=== PATIENT | female | born 1930 | race Caucasian/White ===

== ENCOUNTER 2017-05-13 16:03 | Inpatient (IN) | payer BC, OTHER ==
[2017-05-13 16:20] VITALS: BMI 26.1
--- NOTE | 2017-05-13 16:22 | PDOC ---
Rapid Medical Evaluation Chief Complaint: Hematuria Time Seen by Provider: 05/13/17 16:20 Medical Evaluation: Allergies Allergy/AdvReac Type Severity Reaction Status Date / Time No Known Allergies Allergy Verified 05/13/17 16:14 Vital Signs Temp Pulse Resp BP Pulse Ox 98.6 F 134 H 18 156/89 100 05/13/17 16:16 05/13/17 16:16 05/13/17 16:16 05/13/17 16:16 05/13/17 16:16 05/13/17 16:21 Pt presents to the ED with complaints of: hematuria since this am, no other complaints On brief exam: afib fluctuating to 140s, on eliquis for afib Pt ordered for: ekg, monitoring specialist, iv Pt to proceed to the ED Discharge Disposition - Diagnosis Hematuria - Discharge Dispostion Condition at time of disposition: Stable - Referrals - Patient Instructions - Post Discharge Activity
[2017-05-13 16:58] LABS: BASO % 0.3 % (0-2.0); EOS % 1.1 % (0-4.5); HEMATOCRIT 38.8 % (32.4-45.2); HEMOGLOBIN 12.7 GM/dL (10.7-15.3); LYMPH % 23.6 % (8-40); MCH 29.5 pg (25.7-33.7); MCHC 32.8 g/dl (32.0-36.0); MEAN CELL VOLUME 89.9 fl (80-96); MEAN PLT VOLUME 7.6 fl (7.5-11.1); MONO % 9.9 % (3.8-10.2); NEUT % 65.1 % (42.8-82.8); PLATELET COUNT 293 K/MM3 (134-434); RBC 4.32 M/mm3 (3.60-5.2); RDW 14.9 % (11.6-15.6); WHITE BLOOD COUNT 9.1 K/mm3 (4.0-10.0)
--- NOTE | 2017-05-13 17:04 | PDOC ---
History of Present Illness - General History Source: Patient, Family Exam Limitations: No Limitations - History of Present Illness Initial Comments: 05/13/17 22:47 The patient is an 86 year old female with past medical history of hypertension, diabetes, and Afib on eliqius who presents to the ED with complaints of hematuria and dysuria that began today. She states that the blood has been constant all day, not only when she urinates, however the pain is only present upon urination. The patient states that the blood is bright red, but her granddaughter noticed that the patients panty liner was streaked with some dark red blood as well. She also reports a history of urine infections in the past but denies any recent infections. She denies any urgency, hesitancy, or other urinary symptoms. She denies any fever, chills, nausea, vomiting, diarrhea, cough, SOB, or CP. PCP: Dr. Jericho Mcguire <Jonna Givens - Last Filed: 05/13/17 23:44> <James Diop - Last Filed: 05/14/17 02:06> - General Chief Complaint: Hematuria Stated Complaint: tachycardia BLODD IN URINE Time Seen by Provider: 05/13/17 16:20 Past History <Jonna Givens - Last Filed: 05/13/17 23:44> - Past Medical History Cardiac Disorders: Yes (a.fib) COPD: No Diabetes: Yes HTN: Yes - Immunization History Immunization Up to Date: No - Suicide/Smoking/Psychosocial Hx Smoking History: Never smoked Have you smoked in the past 12 months: No Information on smoking cessation initiated: No Hx Alcohol Use: No Drug/Substance Use Hx: No Substance Use Type: None <James Diop - Last Filed: 05/14/17 02:06> - Past Medical History Allergies/Adverse Reactions: Allergies Allergy/AdvReac Type Severity Reaction Status Date / Time No Known Allergies Allergy Verified 05/13/17 16:14 Home Medications: Ambulatory Orders Apixaban [Eliquis -] 5 mg PO BID 05/13/17 Digoxin 125 mcg PO DAILY 05/13/17 Diltiazem HCl [Cartia Xt] 180 mg PO BID 05/13/17 Docusate Sodium [Colace -] 100 mg PO BID 05/13/17 Metformin HCl [Glucophage -] 850 mg PO BID 05/13/17 Metoprolol Succinate [Toprol Xl -] 100 mg PO BID 05/13/17 Review of Systems - Review of Systems Able to Perform ROS?: Yes Comments:: 05/13/17 22:56 GENERAL/CONSTITUTIONAL: No fever or chills. No weakness. HEAD, EYES, EARS, NOSE AND THROAT: No change in vision. No ear pain or discharge. No sore throat. GASTROINTESTINAL: No nausea, vomiting, diarrhea or constipation. GENITOURINARY: Present: dysuria, hematuria CARDIOVASCULAR: No chest pain or shortness of breath. RESPIRATORY: No cough, wheezing, or hemoptysis. MUSCULOSKELETAL: No joint or muscle swelling or pain. No neck or back pain. SKIN: No rash NEUROLOGIC: No headache, vertigo, loss of consciousness, or change in strength/ sensation. ENDOCRINE: No increased thirst. No abnormal weight change. HEMATOLOGIC/LYMPHATIC: No anemia, easy bleeding, or history of blood clots. ALLERGIC/IMMUNOLOGIC: No hives or skin allergy. All Other Systems: Reviewed and Negative <Jonna Givens - Last Filed: 05/13/17 23:44> *Physical Exam - Vital Signs Last Vital Signs Temp Pulse Resp BP Pulse Ox 98.6 F 87 20 157/91 95 05/13/17 16:16 05/13/17 21:04 05/13/17 21:04 05/13/17 21:04 05/13/17 21:04 - Physical Exam Comments: 05/13/17 22:58 GENERAL: Awake, alert, and fully oriented, in no acute distress HEAD: No signs of trauma EYES: PERRLA, EOMI, sclera anicteric, conjunctiva clear ENT: Auricles normal inspection, hearing grossly normal, nares patent, oropharynx clear without exudates. Moist mucosa NECK: Normal ROM, supple, no lymphadenopathy, JVD, or masses LUNGS: Breath sounds equal, clear to auscultation bilaterally. No wheezes, and no crackles HEART: irregularly irregular HR 134, normal S1 and S2, no murmurs, rubs or gallops ABDOMEN: Soft, nontender, normoactive bowel sounds. No guarding, no rebound. No masses : +blood in the vaginal vault, belcher in place with dark red blood in bag EXTREMITIES: Normal range of motion, no edema. No clubbing or cyanosis. No cords, erythema, or tenderness NEUROLOGICAL: Normal speech, cranial nerves intact, negative pronator drift, 5/ 5 strength in all 4 extremities, normal sensation to light touch in all 4 extremities, normal cerebellar exam, normal reflexes and tone, gait deferred SKIN: Warm, Dry, normal turgor, no rashes or lesions noted. <Jonna Givens - Last Filed: 05/13/17 23:44> - Vital Signs Last Vital Signs Temp Pulse Resp BP Pulse Ox 98.6 F 134 H 18 156/89 100 05/13/17 16:16 05/13/17 16:16 05/13/17 16:16 05/13/17 16:16 05/13/17 16:16 <James Diop - Last Filed: 05/14/17 02:06> Heart Score/ECG Review #1 05/13/17 17:01 Atrial fibrillation with rapid ventricular response, rate 149. Normal axis. ST depressions in V5 and V6, likely rate related. <James Diop - Last Filed: 05/14/17 02:06> ED Treatment Course - LABORATORY CBC & Chemistry Diagram: 05/13/17 16:45 05/13/17 17:20 - ADDITIONAL ORDERS Additional order review: Laboratory Results 05/13/17 05/13/17 05/13/17 17:45 17:20 17:20 PT with INR INR Sodium 141 Potassium 3.6 Chloride 107 Carbon Dioxide 22 D Anion Gap 12 BUN 34 H D Creatinine 0.9 D Creat Clearance w eGFR 59.37 Random Glucose 152 H Calcium 9.3 Total Bilirubin 0.5 D AST 7 L ALT 10 L Alkaline Phosphatase 107 D Creatine Kinase Troponin I < 0.02 Total Protein 6.9 Albumin 3.3 L Urine Color Red Urine Appearance Bloody Urine pH 7.0 Ur Specific [place] 1.025 Urine Protein 3+ H D Urine Glucose (UA) Negative Urine Ketones Negative Urine Blood 3+ H Urine Nitrite Negative Urine Bilirubin Negative Urine Urobilinogen 0.2 Ur Leukocyte Esterase Negative Urine RBC (Auto) >100 Ur Epithelial Cells Moderate Digoxin 0.0631 L 05/13/17 05/13/17 16:45 16:45 PT with INR 14.20 H INR 1.26 H Sodium Cancelled Potassium Cancelled Chloride Cancelled Carbon Dioxide Cancelled Anion Gap Cancelled BUN Cancelled Creatinine Cancelled Creat Clearance w eGFR Cancelled Random Glucose Cancelled Calcium Cancelled Total Bilirubin Cancelled AST Cancelled ALT Cancelled Alkaline Phosphatase Cancelled Creatine Kinase Cancelled Troponin I Cancelled Total Protein Cancelled Albumin Cancelled Urine Color Urine Appearance Urine pH Ur Specific [place] Urine Protein Urine Glucose (UA) Urine Ketones Urine Blood Urine Nitrite Urine Bilirubin Urine Urobilinogen Ur Leukocyte Esterase Urine RBC (Auto) Ur Epithelial Cells Digoxin 05/13/17 16:45 RBC 4.32 MCV 89.9 MCHC 32.8 RDW 14.9 MPV 7.6 Neutrophils % 65.1 Lymphocytes % 23.6 Monocytes % 9.9 Eosinophils % 1.1 Basophils % 0.3 - RADIOLOGY Radiograph Interpretation: 05/13/17 22:11 Chest X-ray as reviewed by Dr. Massey reports no significant findings. - Medications Given in the ED: ED Medications Discontinued Medications Generic Name Dose Route Start Last Admin Trade Name Freq PRN Reason Stop Dose Admin Sodium Chloride 500 ml 05/13/17 17:07 05/13/17 17:37 Normal Saline - IV 05/13/17 17:08 500 ml ONCE ONE Administration <Jonna Givens - Last Filed: 05/13/17 23:44> - LABORATORY CBC & Chemistry Diagram: 05/13/17 22:58 05/13/17 17:20 <James Diop - Last Filed: 05/14/17 02:06> Medical Decision Making - Medical Decision Making 05/13/17 22:06 Microblog Sent to [facility] at 19:16. Call returned promptly and case discussed. 05/13/17 23:44 Transvaginal ultrasound as reviewed by Dr. Rod reports 6 x 5 cm heterogenous masslike density that appears to be within the urinary bladder <Jonna Givens - Last Filed: 05/13/17 23:44> - Medical Decision Making 05/13/17 17:02 86-year-old female with a history of A. fib on Eliquis, heart failure, diabetes presents with hematuria and atrial fibrillation with RVR. Hematuria possibly secondary to eliquis +/- infection. Patient is due for her evening doses of diltiazem and metoprolol which I have advised her to take. Will check labs, urinalysis, and chest x-ray and reassess. 05/13/17 20:02 Labs unremarkable. Heart rate came down to the 80s with the patient's home doses of dilt/metoprolol. Belcher with 500 mL of dark bloody urine. On repeat evaluation there appeared to be blood from the vagina as well and thus I discussed the patient that we should obtain a transvaginal ultrasound for further evaluation to which she verbally consented. The patient's primary physician Dr. Bentley is at the bedside, and requested that we obtain a REGULATORY ASSOCIATE consult which I ordered. I discussed the case with nurse practitioner Estevan who accepts the patient for admission under Dr. Mooney's service. Case discussed in detail with admitting physician including history, physical exam and ancillary studies. Admitting physician has assumed care for the patient, will follow all pending diagnostics and will complete the evaluation and treatment. <James Diop - Last Filed: 05/14/17 02:06> *DC/Admit/Observation/Transfer - Attestations Scribe Attestion: 05/13/17 22:06 Documentation prepared by Jonna Givens, acting as medical physics researcher for James Diop MD. <Jonna Givens - Last Filed: 05/13/17 23:44> - Discharge Dispostion Admit: Yes - Attestations Physician Attestion: 05/13/17 20:06 I, Dr. James Diop MD, attest that this document has been prepared under my direction and personally reviewed by me in its entirety. I further attest, that it accurately reflects all work, treatment, procedures and medical decision -making performed by me. <James Diop - Last Filed: 05/14/17 02:06> Diagnosis at time of Disposition: Hematuria - Discharge Dispostion Condition at time of disposition: Stable
[2017-05-13] MEDS ORDERED: SODIUM CHLORIDE 0.9% 1000 ML INFUS.BAG IV ONE (17:07)
[2017-05-13 17:11] LABS: INR 1.26 (0.82-1.09); PROTHROMBIN TIME (PATIENT) 14.2 SEC (9.98-11.88)
[2017-05-13 18:07] LABS: ALBUMIN 3.3 g/dl (3.4-5.0); ANION GAP 12 (8-16); BLOOD UREA NITROGEN 34 mg/dL (7-18); CALCIUM 9.3 mg/dL (8.5-10.1); CHLORIDE 107 mmol/L (98-107); CO2 22 mmol/L (21-32); CREATININE 0.9 mg/dL (0.55-1.02); GLUCOSE,RANDOM 152 mg/dL (74-106); POTASSIUM 3.6 mmol/L (3.5-5.1); SGOT/AST 7 U/L (15-37); SGPT/ALT 10 U/L (12-78); SODIUM 141 mmol/L (136-145)
[2017-05-13 18:10] LABS: ALK PHOS 107 U/L (45-117); BILIRUBIN,TOTAL 0.5 mg/dL (0.2-1.0); TOT PROT 6.9 g/dl (6.4-8.2)
[2017-05-13 18:19] LABS: URINE BILIRUBIN NEGATIVE (NEGATIVE); URINE BLOOD 3+ (NEGATIVE); URINE GLUCOSE (UA) NEGATIVE (NEGATIVE); URINE KETONE NEGATIVE (NEGATIVE); URINE LEUK ESTERASE NEGATIVE (NEGATIVE); URINE NITRITE NEGATIVE (NEGATIVE); URINE UROBILINOGEN 0.2 mg/dL (0.2-1.0)
[2017-05-13 18:23] LABS: URINE PROTEIN 3+ (NEGATIVE)
[2017-05-13 18:24] LABS: URINE APPEARANCE BLOODY; URINE COLOR RED
[2017-05-13 18:42] LABS: EPI CELLS MODERATE /HPF (FEW)
--- NOTE | 2017-05-13 20:07 | HP ---
Admitting History and Physical - Primary Care Physician PCP: Prosper Burch - Admission Chief Complaint: Hematuria, Dysuria History of Present Illness: This is a 86 y/o woman with a past medical history of Afib (Eliquis), Diabetes Mellitus, HTN. Who presents to the ED with her family c/o júnior hematuria and dysuria since 11 am today. Patient reports seeing dark red blood while urinating that was initially painless, then during the course of the day she began to have suprapubic pressure and urgency. Patient is on Eliquis for Afib, but denies having any bleeding episodes in the past. Patient denies dizziness, lightheadedness, SOB, CP, or Palpitations. Patient denies fever, chills, cough, N/V/D, constipation, melena, hematochezia. History Source: Patient, Family Member Limitations to Obtaining History: No Limitations - Past Medical History Cardiovascular: Yes: AFIB, CAD, HTN, Hyperlipdemia Endocrine: Yes: Diabetes Mellitus - Past Surgical History Past Surgical History: Yes: None - Smoking History Smoking history: Never smoked Have you smoked in the past 12 months: No - Alcohol/Substance Use Hx Alcohol Use: No History of Substance Use: reports: None - Social History ADL: Independent History of Recent Travel: No Home Medications - Allergies Allergies/Adverse Reactions: Allergies Allergy/AdvReac Type Severity Reaction Status Date / Time No Known Allergies Allergy Verified 05/13/17 16:14 - Home Medications Home Medications: Ambulatory Orders Apixaban [Eliquis -] 5 mg PO BID 05/13/17 Digoxin 125 mcg PO DAILY 05/13/17 Diltiazem HCl [Cartia Xt] 180 mg PO BID 05/13/17 Docusate Sodium [Colace -] 100 mg PO BID 05/13/17 Metformin HCl [Glucophage -] 850 mg PO BID 05/13/17 Metoprolol Succinate [Toprol Xl -] 100 mg PO BID 05/13/17 Family Disease History - Family Disease History Family Disease History: Other: Father (cva), Son (cva,htn) Review of Systems - Review of Systems Constitutional: reports: No Symptoms Eyes: reports: No Symptoms HENT: reports: No Symptoms Neck: reports: No Symptoms Cardiovascular: reports: No Symptoms Respiratory: reports: No Symptoms Gastrointestinal: reports: No Symptoms Genitourinary: reports: Dysuria, Hematuria, Urgency, Vaginal Bleeding, Other ( suprapubic pain) Breasts: reports: No Symptoms Reported Musculoskeletal: reports: No Symptoms Integumentary: reports: No Symptoms Neurological: reports: No Symptoms Endocrine: reports: No Symptoms Hematology/Lymphatic: reports: No Symptoms Psychiatric: reports: Anxiety Physical Examination Vital Signs: Vital Signs Temperature 98.6 F 05/13/17 16:16 Pulse Rate 125 H 05/13/17 17:30 Respiratory Rate 20 05/13/17 17:30 Blood Pressure 109/71 05/13/17 17:30 O2 Sat by Pulse Oximetry (%) 95 05/13/17 17:30 Constitutional: Yes: Anxious, Mild Distress Eyes: Yes: WNL, Conjunctiva Clear, EOM Intact HENT: Yes: WNL, Atraumatic, Normocephalic Neck: Yes: WNL, Supple, Trachea Midline Cardiovascular: Yes: Pulse Irregular (afib RVR), Murmur, S1, S2 Respiratory: Yes: WNL, Regular, CTA Bilaterally Gastrointestinal: Yes: Normal Bowel Sounds ...Rectal Exam: Yes: Guaiac Positive Renal/: Yes: Kim Present (júnior blood in tubing and drainage bag), Hematuria , Vaginal Bleeding Breast(s): Yes: WNL Musculoskeletal: Yes: WNL Extremities: Yes: WNL Edema: No Peripheral Pulses WNL: Yes Integumentary: Yes: WNL Neurological: Yes: WNL, Alert, Oriented, Cran Nerves II-XII Intact ...Motor Strength: WNL Psychiatric: Yes: WNL, Alert, Oriented, Agitated Labs: CBC, BMP 05/13/17 16:45 05/13/17 17:20 Laboratory Results - last 24 hr 05/13/17 05/13/17 05/13/17 16:45 16:45 16:45 WBC 9.1 RBC 4.32 Hgb 12.7 Hct 38.8 MCV 89.9 MCH 29.5 MCHC 32.8 RDW 14.9 Plt Count 293 MPV 7.6 Neutrophils % 65.1 Lymphocytes % 23.6 Monocytes % 9.9 Eosinophils % 1.1 Basophils % 0.3 PT with INR 14.20 H INR 1.26 H Sodium Cancelled Potassium Cancelled Chloride Cancelled Carbon Dioxide Cancelled Anion Gap Cancelled BUN Cancelled Creatinine Cancelled Creat Clearance w eGFR Cancelled POC Glucometer Random Glucose Cancelled Calcium Cancelled Total Bilirubin Cancelled AST Cancelled ALT Cancelled Alkaline Phosphatase Cancelled Creatine Kinase Cancelled Troponin I Cancelled Total Protein Cancelled Albumin Cancelled Urine Color Urine Appearance Urine pH Ur Specific [place] Urine Protein Urine Glucose (UA) Urine Ketones Urine Blood Urine Nitrite Urine Bilirubin Urine Urobilinogen Ur Leukocyte Esterase Urine RBC (Auto) Ur Epithelial Cells Stool Occult Blood Digoxin 05/13/17 05/13/17 05/13/17 17:20 17:20 17:45 WBC RBC Hgb Hct MCV MCH MCHC RDW Plt Count MPV Neutrophils % Lymphocytes % Monocytes % Eosinophils % Basophils % PT with INR INR Sodium 141 Potassium 3.6 Chloride 107 Carbon Dioxide 22 D Anion Gap 12 BUN 34 H D Creatinine 0.9 D Creat Clearance w eGFR 59.37 POC Glucometer Random Glucose 152 H Calcium 9.3 Total Bilirubin 0.5 D AST 7 L ALT 10 L Alkaline Phosphatase 107 D Creatine Kinase Troponin I < 0.02 Total Protein 6.9 Albumin 3.3 L Urine Color Red Urine Appearance Bloody Urine pH 7.0 Ur Specific [place] 1.025 Urine Protein 3+ H D Urine Glucose (UA) Negative Urine Ketones Negative Urine Blood 3+ H Urine Nitrite Negative Urine Bilirubin Negative Urine Urobilinogen 0.2 Ur Leukocyte Esterase Negative Urine RBC (Auto) >100 Ur Epithelial Cells Moderate Stool Occult Blood Digoxin 0.0631 L 05/13/17 05/13/17 05/14/17 21:15 22:58 01:10 WBC 7.6 RBC 3.94 Hgb 11.6 Hct 35.1 MCV 89.2 MCH 29.3 MCHC 32.9 RDW 14.6 Plt Count 285 MPV 7.4 L Neutrophils % 63.9 Lymphocytes % 24.4 Monocytes % 10.3 H Eosinophils % 1.0 Basophils % 0.4 PT with INR INR Sodium Potassium Chloride Carbon Dioxide Anion Gap BUN Creatinine Creat Clearance w eGFR POC Glucometer Random Glucose Calcium Total Bilirubin AST ALT Alkaline Phosphatase Creatine Kinase Troponin I 0.06 H Total Protein Albumin Urine Color Urine Appearance Urine pH Ur Specific [place] Urine Protein Urine Glucose (UA) Urine Ketones Urine Blood Urine Nitrite Urine Bilirubin Urine Urobilinogen Ur Leukocyte Esterase Urine RBC (Auto) Ur Epithelial Cells Stool Occult Blood Positive Digoxin 05/14/17 05/14/17 05/14/17 06:20 06:41 06:41 WBC 8.9 RBC 3.42 L Hgb 10.0 L D Hct 30.8 L MCV 90.2 MCH 29.2 MCHC 32.4 RDW 14.7 Plt Count 255 MPV 7.3 L Neutrophils % 71.9 Lymphocytes % 18.6 D Monocytes % 9.0 Eosinophils % 0.1 D Basophils % 0.4 PT with INR INR Sodium Potassium Chloride Carbon Dioxide Anion Gap BUN Creatinine Creat Clearance w eGFR POC Glucometer 125 Random Glucose Calcium Total Bilirubin AST ALT Alkaline Phosphatase Creatine Kinase Troponin I 0.06 H Total Protein Albumin Urine Color Urine Appearance Urine pH Ur Specific [place] Urine Protein Urine Glucose (UA) Urine Ketones Urine Blood Urine Nitrite Urine Bilirubin Urine Urobilinogen Ur Leukocyte Esterase Urine RBC (Auto) Ur Epithelial Cells Stool Occult Blood Digoxin Current Medications Generic Name Dose Route Start Last Admin Trade Name Freq PRN Reason Stop Dose Admin Sodium Chloride 1,000 mls @ 42 mls/hr 05/13/17 21:45 05/13/17 23:00 Normal Saline - IV 42 mls/hr ASDIR KEVAN Administration Cefazolin Sodium 1 gm in 10 mls @ 100 mls/hr 05/13/17 23:00 05/13/17 23:29 Ancef - IVPUSH 100 mls/hr Q8H-IV KEVAN Administration Morphine Sulfate 1 mg 05/13/17 23:03 05/14/17 05:09 Morphine Injection - IVPUSH 1 mg Q4H PRN Administration PAIN Intake & Output 05/11/17 05/12/17 05/13/17 05/14/17 23:59 23:59 23:59 23:59 Intake Total 300 Output Total 400 Balance -400 300 Weight 68.946 kg Imaging - Results Chest X-ray: Report Reviewed, Image Reviewed Ultrasound: Report Reviewed, Image Reviewed EKG: Image Reviewed Problem List - Problems (1) Hematuria Assessment/Plan: - Likely secondary to AC vs Malignancy vs Infection - Hold Eliquis - Monitor CBC, will transfuse if Hgb < 7.0 - Continue IVF - Transvaginal US- r/o mass- pending - Appreciate Urology Consult - Keep NPO - Strict INOs - Monitor vitals Code(s): R31.9 - HEMATURIA, UNSPECIFIED (2) Paroxysmal atrial fibrillation with RVR Assessment/Plan: -Patient denies palpitations, CP or SOB - EKG- reviewed Afib with RVR - Given home meds in ED- Afib now rate controlled - Continue cardiac monitoring - Appreciate Cardiology Consult - Serial Enzymes - Continue Cardizem, Digoxin, Metoprolol with parameters Code(s): I48.0 - PAROXYSMAL ATRIAL FIBRILLATION (3) Abnormal vaginal bleeding Assessment/Plan: - Post menopausal bleeding concerning for Malignancy - Transvaginal US-pending - Appreciate WAF[employer] WORKER Consult - Continue gentle IVF - Monitor vitals, CBC Code(s): N93.9 - ABNORMAL UTERINE AND VAGINAL BLEEDING, UNSPECIFIED (4) GI bleed Assessment/Plan: - Likely secondary to Vaginal Bleed - Stool Occult positive - Appreciate GI consult - Monitor CBC - NPO -Monitor vitals -Gentle IVF Code(s): K92.2 - GASTROINTESTINAL HEMORRHAGE, UNSPECIFIED (5) Elevated troponin Assessment/Plan: -Likely secondary to Demand Ischemia - Will continue to trend - Appreciate Cardiology Consult - At present patient denies chest pain or palpitations or SOB - EKG reviewed - Chest Xray-reviewed - Continue cardiac monitoring Code(s): R74.8 - ABNORMAL LEVELS OF OTHER SERUM ENZYMES (6) CAD (coronary artery disease) Assessment/Plan: - Continue home meds Code(s): I25.10 - ATHSCL HEART DISEASE OF [place] CORONARY ARTERY W/O ANG PCTRS (7) Diabetes Assessment/Plan: - BGMs - ISS- when diet resumed - Will hold Metformin for tighter glycemic control - HgbA1c in am Code(s): E11.9 - TYPE 2 DIABETES MELLITUS WITHOUT COMPLICATIONS (8) HTN (hypertension) Assessment/Plan: - Monitor BP - Will continue home meds cautiously, secondary to Hematuria/Vaginal Bleed, ? Rectal Bleed- concerning for hypotension Code(s): I10 - ESSENTIAL (PRIMARY) HYPERTENSION (9) DVT prophylaxis Assessment/Plan: -OOB - SCDs - Hold ACs secondary to Hematuria Code(s): [id number] - Assessment/Plan This is a 86 y.o woman with a PMhx of: Afib (on Eliquis), DM, HTN. Admitted for Hematuria secondary to Bladder Mass, Afib with RVR. FEN - NS@42cc/hr - Replete lytes prn - NPO DVT Prophylaxis - OOB - SCDs - Hold AC secondary to Hematuria Code Status: Full Code Dispo: Requires Inpatient Care Visit type - Emergency Visit Emergency Visit: Yes ED Registration Date: 05/13/17 Care time: The patient presented to the Emergency Department on the above date and was hospitalized for further evaluation of their emergent condition. - New Patient This patient is new to me today: Yes Date on this admission: 05/13/17 - Critical Care Critical Care patient: No
[2017-05-13] MEDS ORDERED: CEFAZOLIN 1 GM PUSH 1 GM/10 ML DISP.SYRIN IVPUSH SCH (22:30)
[2017-05-13] MEDS: SODIUM CHLORIDE 1,000 ML IV SCH (23:00)
[2017-05-13] MEDS ORDERED: morphine CARPU-JECT 10 MG/1 ML DISP.SYRIN ONE (23:28)
[2017-05-13] MEDS: morphine CARPU-JECT 10 MG/1 ML DISP.SYRIN IVPUSH PRN (23:29)
[2017-05-13] MEDS ORDERED: CEFAZOLIN 1 GM/D5W 1 GM/50 ML BAG ONE (23:29)
[2017-05-13] MEDS: CEFAZOLIN 1 GM PUSH 1 GM/10 ML DISP.SYRIN IVPUSH SCH (23:29)
[2017-05-14 00:07] LABS: BASO % 0.4 % (0-2.0); HEMATOCRIT 35.1 % (32.4-45.2); HEMOGLOBIN 11.6 GM/dL (10.7-15.3); LYMPH % 24.4 % (8-40); MCH 29.3 pg (25.7-33.7); MCHC 32.9 g/dl (32.0-36.0); MEAN CELL VOLUME 89.2 fl (80-96); MEAN PLT VOLUME 7.4 fl (7.5-11.1); MONO % 10.3 % (3.8-10.2); NEUT % 63.9 % (42.8-82.8); PLATELET COUNT 285 K/MM3 (134-434); RBC 3.94 M/mm3 (3.60-5.2); RDW 14.6 % (11.6-15.6); WHITE BLOOD COUNT 7.6 K/mm3 (4.0-10.0)
[2017-05-14] MEDS: morphine CARPU-JECT 10 MG/1 ML DISP.SYRIN IVPUSH PRN (05:09)
[2017-05-14 08:30] LABS: BASO % 0.4 % (0-2.0); EOS % 0.1 % (0-4.5); HEMATOCRIT 30.8 % (32.4-45.2); LYMPH % 18.6 % (8-40); MCH 29.2 pg (25.7-33.7); MCHC 32.4 g/dl (32.0-36.0); MEAN CELL VOLUME 90.2 fl (80-96); MEAN PLT VOLUME 7.3 fl (7.5-11.1); NEUT % 71.9 % (42.8-82.8); PLATELET COUNT 255 K/MM3 (134-434); RBC 3.42 M/mm3 (3.60-5.2); RDW 14.7 % (11.6-15.6); WHITE BLOOD COUNT 8.9 K/mm3 (4.0-10.0)
[2017-05-14 08:39] LABS: INR 1.29 (0.82-1.09); PROTHROMBIN TIME (PATIENT) 14.6 SEC (9.98-11.88)
--- NOTE | 2017-05-14 08:39 | PN ---
Physical Exam: SUBJECTIVE: Patient seen and examined Reports feels better, denies cp, sob, palpitations, dizziness, abdominal pain,N /V or diarrhea. Still with hematuria. OBJECTIVE: Vital Signs Period Temp Pulse Resp BP Sys/Lazaro Pulse Ox Last 24 Hr 98.4 F-98.6 F 81-134 18-20 109-157/53-91 95-100 GENERAL: The patient is awake, alert, and fully oriented, in no acute distress, remains anxious HEAD: Normal with no signs of trauma. EYES: PERRL, extraocular movements intact, sclera anicteric, conjunctiva clear. No ptosis. ENT: Ears normal, nares patent, oropharynx clear without exudates, moist mucous membranes. NECK: Trachea midline, full range of motion, supple. LUNGS: Breath sounds equal, clear to auscultation bilaterally, no wheezes, no crackles, no accessory muscle use. HEART: Regular rate and rhythm, S1, S2 without murmur, rub or gallop. ABDOMEN: Soft, nontender, nondistended, normoactive bowel sounds, no guarding, no rebound, no hepatosplenomegaly, no masses. EXTREMITIES: 2+ pulses, warm, well-perfused, no edema. NEUROLOGICAL: Cranial nerves II through XII grossly intact. Normal speech, gait not observed. PSYCH: Normal mood, normal affect. SKIN: Warm, dry, normal turgor, no rashes or lesions noted - Kim with hematuria, + vaginal bleeding Laboratory Results - last 24 hr 05/13/17 05/13/17 05/13/17 16:45 16:45 16:45 WBC 9.1 RBC 4.32 Hgb 12.7 Hct 38.8 MCV 89.9 MCH 29.5 MCHC 32.8 RDW 14.9 Plt Count 293 MPV 7.6 Neutrophils % 65.1 Lymphocytes % 23.6 Monocytes % 9.9 Eosinophils % 1.1 Basophils % 0.3 PT with INR 14.20 H INR 1.26 H Sodium Cancelled Potassium Cancelled Chloride Cancelled Carbon Dioxide Cancelled Anion Gap Cancelled BUN Cancelled Creatinine Cancelled Creat Clearance w eGFR Cancelled POC Glucometer Random Glucose Cancelled Calcium Cancelled Total Bilirubin Cancelled AST Cancelled ALT Cancelled Alkaline Phosphatase Cancelled Creatine Kinase Cancelled Troponin I Cancelled Total Protein Cancelled Albumin Cancelled Urine Color Urine Appearance Urine pH Ur Specific [place] Urine Protein Urine Glucose (UA) Urine Ketones Urine Blood Urine Nitrite Urine Bilirubin Urine Urobilinogen Ur Leukocyte Esterase Urine RBC (Auto) Ur Epithelial Cells Stool Occult Blood Digoxin 05/13/17 05/13/17 05/13/17 17:20 17:20 17:45 WBC RBC Hgb Hct MCV MCH MCHC RDW Plt Count MPV Neutrophils % Lymphocytes % Monocytes % Eosinophils % Basophils % PT with INR INR Sodium 141 Potassium 3.6 Chloride 107 Carbon Dioxide 22 D Anion Gap 12 BUN 34 H D Creatinine 0.9 D Creat Clearance w eGFR 59.37 POC Glucometer Random Glucose 152 H Calcium 9.3 Total Bilirubin 0.5 D AST 7 L ALT 10 L Alkaline Phosphatase 107 D Creatine Kinase Troponin I < 0.02 Total Protein 6.9 Albumin 3.3 L Urine Color Red Urine Appearance Bloody Urine pH 7.0 Ur Specific [place] 1.025 Urine Protein 3+ H D Urine Glucose (UA) Negative Urine Ketones Negative Urine Blood 3+ H Urine Nitrite Negative Urine Bilirubin Negative Urine Urobilinogen 0.2 Ur Leukocyte Esterase Negative Urine RBC (Auto) >100 Ur Epithelial Cells Moderate Stool Occult Blood Digoxin 0.0631 L 05/13/17 05/13/17 05/14/17 21:15 22:58 01:10 WBC 7.6 RBC 3.94 Hgb 11.6 Hct 35.1 MCV 89.2 MCH 29.3 MCHC 32.9 RDW 14.6 Plt Count 285 MPV 7.4 L Neutrophils % 63.9 Lymphocytes % 24.4 Monocytes % 10.3 H Eosinophils % 1.0 Basophils % 0.4 PT with INR INR Sodium Potassium Chloride Carbon Dioxide Anion Gap BUN Creatinine Creat Clearance w eGFR POC Glucometer Random Glucose Calcium Total Bilirubin AST ALT Alkaline Phosphatase Creatine Kinase Troponin I 0.06 H Total Protein Albumin Urine Color Urine Appearance Urine pH Ur Specific [place] Urine Protein Urine Glucose (UA) Urine Ketones Urine Blood Urine Nitrite Urine Bilirubin Urine Urobilinogen Ur Leukocyte Esterase Urine RBC (Auto) Ur Epithelial Cells Stool Occult Blood Positive Digoxin 05/14/17 05/14/17 06:20 06:41 WBC 8.9 RBC 3.42 L Hgb 10.0 L D Hct 30.8 L MCV 90.2 MCH 29.2 MCHC 32.4 RDW 14.7 Plt Count 255 MPV 7.3 L Neutrophils % 71.9 Lymphocytes % 18.6 D Monocytes % 9.0 Eosinophils % 0.1 D Basophils % 0.4 PT with INR INR Sodium Potassium Chloride Carbon Dioxide Anion Gap BUN Creatinine Creat Clearance w eGFR POC Glucometer 125 Random Glucose Calcium Total Bilirubin AST ALT Alkaline Phosphatase Creatine Kinase Troponin I Total Protein Albumin Urine Color Urine Appearance Urine pH Ur Specific [place] Urine Protein Urine Glucose (UA) Urine Ketones Urine Blood Urine Nitrite Urine Bilirubin Urine Urobilinogen Ur Leukocyte Esterase Urine RBC (Auto) Ur Epithelial Cells Stool Occult Blood Digoxin Active Medications Generic Name Dose Route Start Last Admin Trade Name Freq PRN Reason Stop Dose Admin Sodium Chloride 1,000 mls @ 42 mls/hr 05/13/17 21:45 05/13/17 23:00 Normal Saline - IV 42 mls/hr ASDIR KEVAN Administration Cefazolin Sodium 1 gm in 10 mls @ 100 mls/hr 05/13/17 23:00 05/13/17 23:29 Ancef - IVPUSH 100 mls/hr Q8H-IV KEVAN Administration Morphine Sulfate 1 mg 05/13/17 23:03 05/14/17 05:09 Morphine Injection - IVPUSH 1 mg Q4H PRN Administration PAIN Transvaginal US: 6x5 cm mass like density within the urinary bladder CxR: No acute pathology ASSESSMENT/PLAN: This is a 86 y/o woman with a past medical history of Afib (Eliquis), Diabetes Mellitus, HTN. Who presents to the ED with her family c/o júnior hematuria and dysuria. * Hematuria- Likely secondary to AC vs Malignancy vs Infection - Holding off Eliquis - CBC slowly trending down, remains asymptomatic - will monitor CBC closely, will transfuse if Hgb < 7.0 -Transvaginal US: 6x5 cm mass like density within the urinary bladder - CT pelvis ordered - official urology consult pending - Keep NPO until CT abdomen/pelvis result available - Strict INOs - Monitor vitals -will cont on abx - urine culture pending *Paroxysmal atrial fibrillation with RVR- now HR controlled - EKG- reviewed Afib with RVR - will hold off on AC in view of hematuria - Continue cardiac monitoring - Cardiology Consulted - Serial Enzymes, trop 0.06- asymptomatic - will continue Cardizem, Digoxin, Metoprolol with parameters *Abnormal vaginal bleeding- hx of total hysterectomy - Transvaginal US: mass like density within the urinary bladder - 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, bleeding likely 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, will f/u after consult if needed - Continue gentle IVF - Monitor vitals, CBC *GI bleed- Likely secondary to Vaginal Bleed/ hematuria - Stool Occult positive - Monitor CBC -Monitor vitals -Gentle IVF * Elevated troponin-Likely secondary to Demand Ischemia - Serial Enzymes, trop 0.06- asymptomatic - Cardiology Consulted - EKG reviewed - Continue cardiac monitoring *Diabetes - BGMs - ISS - Will hold Metformin - HgbA1c ordered * HTN : BP stable - will cont on home meds with holding parameters DVT prophylaxis -OOB - SCDs - Hold ACs due to Hematuria *FEN - NS@42cc/hr - Replete lytes prn - will resume diet Addendum: CT abdomen /pelvis revealed 7.5x6.5cm mass like lesion vs blood clot in the urianry bladder. CBI ordered, left message for Dr. Garay. Visit type - Emergency Visit Emergency Visit: Yes ED Registration Date: 05/14/17 Care time: The patient presented to the Emergency Department on the above date and was hospitalized for further evaluation of their emergent condition. - New Patient This patient is new to me today: Yes Date on this admission: 05/14/17 - Critical Care Critical Care patient: No
[2017-05-14] MEDS: CEFAZOLIN 1 GM PUSH 1 GM/10 ML DISP.SYRIN IVPUSH SCH ×2 (11:08→17:20)
--- NOTE | 2017-05-14 12:13 | CON.CARD ---
Cardiology Consult (text) - Consultation Consultation Note: Chief Complaint: hematuria, dysuria History of Present Illness: 86 yo female here with one day of hematuria/dysuria. no cp sob palps dizzy loc pnd orthopnea le edema PMH: afib HTN HPL no cigs no FH of MIs - Past Medical History Cardio/Vascular: Yes: CAD, HTN, Hyperlipdemia Endocrine: Yes: Diabetes Mellitus - Past Surgical History Past Surgical History: Yes: None - Alcohol/Substance Use Hx Alcohol Use: No History of Substance Use: reports: None - Smoking History Smoking history: Never smoked Have you smoked in the past 12 months: No - Social History ADL: Independent History of Recent Travel: No Home Medications - Allergies Allergies/Adverse Reactions: Allergies Allergy/AdvReac Type Severity Reaction Status Date / Time No Known Allergies Allergy Verified 05/13/17 16:14 - Home Medications Home Medications Medication Instructions Recorded Apixaban [Eliquis -] 5 mg PO BID 05/13/17 Digoxin 125 mcg PO DAILY 05/13/17 Diltiazem HCl [Cartia Xt] 180 mg PO BID 05/13/17 Docusate Sodium [Colace -] 100 mg PO BID 05/13/17 Metformin HCl [Glucophage -] 850 mg PO BID 05/13/17 Metoprolol Succinate [Toprol Xl -] 100 mg PO BID 05/13/17 Family Disease History - Family Disease History Family Disease History: Other: Father (cva), Son (cva,htn) Review of Systems - Review of Systems Constitutional: denies: Chills, Fever Eyes: denies: Eye Pain HENT: denies: Nasal Congestion Neck: denies: Stiffness Cardiovascular: denies: Palpitations Respiratory: denies: Orthopnea, PND Gastrointestinal: denies: Diarrhea, Rectal Bleeding Musculoskeletal: denies: Muscle Pain Integumentary: denies: Rash Neurological: denies: Numbness, Seizure, Syncope Endocrine: denies: Excessive Sweating Hematology/Lymphatic: denies: Excessive Bleeding Vital Signs: Vital Signs Period Temp Pulse Resp BP Sys/Lazaro Pulse Ox Last 24 Hr 97.8 F-98.6 F 81-134 18-20 109-157/53-91 95-100 Constitutional: Yes: Well Nourished, No Distress Eyes: No: Sclera Icterus HENT: No: Nasal Congestion Neck: No: Decreased ROM Respiratory: Yes: CTA Bilaterally. No: Accessory Muscle Use, Rales Gastrointestinal: Yes: Normal Bowel Sounds. No: Distention, Hepatomegaly, Palpable Mass, Tenderness Cardiovascular: Yes: Pulse Irregular JVD: No Carotid Bruit: No PMI: Non-Displaced Heart Sounds: Yes: S1, S2. No: Gallop Murmur: No: Systolic Murmur, Diastolic Murmur Musculoskeletal: Yes: Other (No kyphosis) Extremities: No: Cold, Cyanosis Edema: No Peripheral Pulses: 2+ Left Carotid, 2+ Right Carotid, 2+ Left Doralis Pedis, 2+ Right Dorsalis Pedis Integumentary: No: Jaundice Neurological: Yes: Alert, Oriented (x3) Psychiatric: No: Agitated - Other Data Labs, Other Data: Laboratory Last Values WBC 8.9 K/mm3 (4.0-10.0) 05/14/17 06:41 RBC 3.42 M/mm3 (3.60-5.2) L 05/14/17 06:41 Hgb 10.0 GM/dL (10.7-15.3) L D 05/14/17 06:41 Hct 30.8 % (32.4-45.2) L 05/14/17 06:41 MCV 90.2 fl (80-96) 05/14/17 06:41 MCH 29.2 pg (25.7-33.7) 05/14/17 06:41 MCHC 32.4 g/dl (32.0-36.0) 05/14/17 06:41 RDW 14.7 % (11.6-15.6) 05/14/17 06:41 Plt Count 255 K/MM3 (134-434) 05/14/17 06:41 MPV 7.3 fl (7.5-11.1) L 05/14/17 06:41 Neutrophils % 71.9 % (42.8-82.8) 05/14/17 06:41 Lymphocytes % 18.6 % (8-40) D 05/14/17 06:41 Monocytes % 9.0 % (3.8-10.2) 05/14/17 06:41 Eosinophils % 0.1 % (0-4.5) D 05/14/17 06:41 Basophils % 0.4 % (0-2.0) 05/14/17 06:41 PT with INR 14.60 SEC (9.98-11.88) H 05/14/17 06:41 INR 1.29 (0.82-1.09) H 05/14/17 06:41 Sodium 141 mmol/L (136-145) 05/13/17 17:20 Potassium 3.6 mmol/L (3.5-5.1) 05/13/17 17:20 Chloride 107 mmol/L (98-107) 05/13/17 17:20 Carbon Dioxide 22 mmol/L (21-32) D 05/13/17 17:20 Anion Gap 12 (8-16) 05/13/17 17:20 BUN 34 mg/dL (7-18) H D 05/13/17 17:20 Creatinine 0.9 mg/dL (0.55-1.02) D 05/13/17 17:20 Creat Clearance w eGFR 59.37 (>60) 05/13/17 17:20 POC Glucometer 125 UNITS (80-120) 05/14/17 06:20 Random Glucose 152 mg/dL (74-106) H 05/13/17 17:20 Calcium 9.3 mg/dL (8.5-10.1) 05/13/17 17:20 Total Bilirubin 0.5 mg/dL (0.2-1.0) D 05/13/17 17:20 AST 7 U/L (15-37) L 05/13/17 17:20 ALT 10 U/L (12-78) L 05/13/17 17:20 Alkaline Phosphatase 107 U/L (45-117) D 05/13/17 17:20 Creatine Kinase Cancelled 05/13/17 16:45 Troponin I 0.06 ng/ml (0.00-0.05) H 05/14/17 06:41 Total Protein 6.9 g/dl (6.4-8.2) 05/13/17 17:20 Albumin 3.3 g/dl (3.4-5.0) L 05/13/17 17:20 Urine Color Red 05/13/17 17:45 Urine Appearance Bloody 05/13/17 17:45 Urine pH 7.0 (5.0-8.0) 05/13/17 17:45 Ur Specific [place] 1.025 (1.001-1.035) 05/13/17 17:45 Urine Protein 3+ (NEGATIVE) H D 05/13/17 17:45 Urine Glucose (UA) Negative (NEGATIVE) 05/13/17 17:45 Urine Ketones Negative (NEGATIVE) 05/13/17 17:45 Urine Blood 3+ (NEGATIVE) H 05/13/17 17:45 Urine Nitrite Negative (NEGATIVE) 05/13/17 17:45 Urine Bilirubin Negative (NEGATIVE) 05/13/17 17:45 Urine Urobilinogen 0.2 mg/dL (0.2-1.0) 05/13/17 17:45 Ur Leukocyte Esterase Negative (NEGATIVE) 05/13/17 17:45 Urine RBC (Auto) >100 /hpf (0-3) 05/13/17 17:45 Ur Epithelial Cells Moderate /HPF (FEW) 05/13/17 17:45 Stool Occult Blood Positive (NEGATIVE) 05/13/17 21:15 Digoxin 0.0631 ng/ml (0.8-2.0) L 05/13/17 17:20 ekg: afib, rvr, rbbb, lat st depressions echo here 02/2016: nl lv size, mod dec lvef, global hk, nl rv, mild-mod mr, mod tr, rvsp 50-60,trace-mild ar, mild pr Echo 07/22: Nl LV/RV. No significant valvular abnormalities. tele: afib, rate controlled CXR: no chf tele: afib, rate controlled Assessment/Plan hematuria: -US showing possible bladder mass, ct pending - eval pending -ok to hold eliquis for now until cleared to resume by persistent Afib, rapid HR: -rate controlled currently -cont dilt 180 bid and toprol 100 bid, and digoxin (level ok) -monitor tele -chadsvasc is 5 (no cva/tia hx) so has indication for ac, was on eliquis 5 mg BID-->hold AC for now as above syst chf: -Nl EF 07/2015 --> 02/2016 (EF mod depressed). 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
--- NOTE | 2017-05-14 13:29 | EKG ---
Test Reason : Blood Pressure : / mmHG Vent. Rate : 149 BPM Atrial Rate : 153 BPM P-R Int : 000 ms QRS Dur : 108 ms QT Int : 320 ms P-R-T Axes : 000 001 214 degrees QTc Int : 504 ms POOR DATA QUALITY, INTERPRETATION MAY BE ADVERSELY AFFECTED ATRIAL FIBRILLATION WITH RAPID VENTRICULAR RESPONSE INCOMPLETE LEFT BUNDLE BRANCH BLOCK MARKED ST ABNORMALITY, POSSIBLE INFEROLATERAL SUBENDOCARDIAL INJURY ABNORMAL ECG WHEN COMPARED WITH ECG OF 16-FEB-2016 09:30, INCOMPLETE LEFT BUNDLE BRANCH BLOCK IS NOW PRESENT ST MORE DEPRESSED INFERIOR LEADS ST MORE DEPRESSED LATERAL LEADS Confirmed by JON LAFLEUR MD ([id number]) on 05/14/2017 1:29:23 PM Referred By: Confirmed By:JON LAFLEUR MD
[2017-05-14] MEDS ORDERED: PT OWN MED DRAWER 7, Y5N ONE (16:48)
[2017-05-14] MEDS: INSULIN SLIDING SCALE (NOVOLOG) 1 VIAL SQ SCH ×2 (17:13→23:29)
[2017-05-14 19:01] LABS: HEMATOCRIT 28.3 % (32.4-45.2); HEMOGLOBIN 9.3 GM/dL (10.7-15.3); MCH 29.3 pg (25.7-33.7); MCHC 32.8 g/dl (32.0-36.0); MEAN CELL VOLUME 89.3 fl (80-96); MEAN PLT VOLUME 6.8 fl (7.5-11.1); PLATELET COUNT 226 K/MM3 (134-434); RBC 3.17 M/mm3 (3.60-5.2); RDW 14.8 % (11.6-15.6); WHITE BLOOD COUNT 7.7 K/mm3 (4.0-10.0)
[2017-05-14] MEDS: SODIUM CHLORIDE 1,000 ML IV SCH (23:20)
[2017-05-14] MEDS: METOPROLOL SUCCINATE 100 MG TAB.SR.24H (FP) PO SCH (23:30)
[2017-05-15] MEDS ORDERED: PT OWN MED DRAWER 7, Y5N ONE (01:28)
[2017-05-15] MEDS: CEFAZOLIN 1 GM PUSH 1 GM/10 ML DISP.SYRIN IVPUSH SCH (02:09)
[2017-05-15] MEDS: INSULIN SLIDING SCALE (NOVOLOG) 1 VIAL SQ SCH ×4 (06:18→21:48)
[2017-05-15 07:15] LABS: HEMATOCRIT 28.3 % (32.4-45.2); HEMOGLOBIN 9.4 GM/dL (10.7-15.3); MCH 29.8 pg (25.7-33.7); MCHC 33.3 g/dl (32.0-36.0); MEAN CELL VOLUME 89.6 fl (80-96); MEAN PLT VOLUME 7.1 fl (7.5-11.1); PLATELET COUNT 246 K/MM3 (134-434); RBC 3.16 M/mm3 (3.60-5.2); RDW 14.7 % (11.6-15.6); WHITE BLOOD COUNT 4.9 K/mm3 (4.0-10.0)
[2017-05-15] MEDS: DIGOXIN 0.125 MG TABLET (FP) PO SCH (09:40)
[2017-05-15] MEDS: METOPROLOL SUCCINATE 100 MG TAB.SR.24H (FP) PO SCH ×2 (09:41→21:48)
--- NOTE | 2017-05-15 10:57 | PN ---
Progress Note (short form) - Note Progress Note: s: no cp sob palps dizzy o: Vital Signs Period Temp Pulse Resp BP Sys/Lazaro Pulse Ox Last 24 Hr 98.2 F-99.0 F 74-85 18-20 119-142/57-95 95-99 Constitutional: Yes: Well Nourished, No Distress Eyes: No: Sclera Icterus Respiratory: Yes: CTA Bilaterally. No: Accessory Muscle Use, Rales Gastrointestinal: Yes: Normal Bowel Sounds. No: Distention, Hepatomegaly, Palpable Mass, Tenderness Cardiovascular: Yes: Pulse Irregular JVD: No Heart Sounds: Yes: S1, S2. No: Gallop Murmur: No: Systolic Murmur, Diastolic Murmur Musculoskeletal: Yes: Other (No kyphosis) Extremities: No: Cold, Cyanosis Edema: No Integumentary: No: Jaundice Neurological: Yes: Alert, Oriented (x3) Psychiatric: No: Agitated Current Medications Generic Name Dose Route Start Last Admin Trade Name Freq PRN Reason Stop Dose Admin Digoxin 0.125 mg 05/15/17 10:00 05/15/17 09:40 Lanoxin - PO 0.125 mg DAILY KEVAN Administration Diltiazem HCl 180 mg 05/14/17 22:00 05/15/17 09:40 Cardizem Cd - PO 180 mg BID KEVAN Administration Sodium Chloride 1,000 mls @ 42 mls/hr 05/13/17 21:45 05/14/17 23:20 Normal Saline - IV 42 mls/hr ASDIR KEVAN Administration Cefazolin Sodium 1 gm in 10 mls @ 100 mls/hr 05/13/17 23:00 05/15/17 02:09 Ancef - IVPUSH 100 mls/hr Q8H-IV KEVAN Administration Insulin Aspart 1 vial 05/14/17 16:30 05/15/17 06:18 Novolog Vial Sliding Scale - SQ Not Given ACHS KEVAN Protocol Metoprolol Succinate 100 mg 05/14/17 22:00 05/15/17 09:41 Toprol Xl - PO 100 mg BID KEVAN Administration Morphine Sulfate 1 mg 05/13/17 23:03 05/14/17 05:09 Morphine Injection - IVPUSH 1 mg Q4H PRN Administration PAIN CBC, BMP 05/15/17 06:17 05/13/17 17:20 ekg: afib, rvr, rbbb, lat st depressions echo here 02/2016: nl lv size, mod dec lvef, global hk, nl rv, mild-mod mr, mod tr, rvsp 50-60,trace-mild ar, mild pr Echo 07/22: Nl LV/RV. No significant valvular abnormalities. tele: afib, rate controlled CXR: no chf tele: afib, rate controlled Assessment/Plan hematuria: -US/CT showing possible bladder mass - eval pending -ok to hold eliquis for now until cleared to resume by persistent Afib, rapid HR: -rate controlled currently -cont dilt 180 bid and toprol 100 bid, and digoxin (level ok) -monitor tele -chadsvasc is 5 (no cva/tia hx) so has indication for ac, was on eliquis 5 mg BID-->hold AC for now as above syst chf: -Nl EF 07/2015 --> 02/2016 (EF mod depressed). 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
[2017-05-15] MEDS ORDERED: CEFTRIAXONE 1 GM in DEXTROSE 5%-WATER - 50 ML IVPB SCH (11:00)
[2017-05-15] MEDS: CEFTRIAXONE 1 G/50 ML PREMIX 50 ML IVPB SCH (12:10)
--- NOTE | 2017-05-15 20:30 | PN ---
Physical Exam: SUBJECTIVE: Patient seen and examined at bedside. and granddaughter present. OBJECTIVE: Vital Signs Period Temp Pulse Resp BP Sys/Lazaro Pulse Ox Last 24 Hr 98.2 F-99 F 74-85 18-20 119-136/57-95 99-99 GENERAL: The patient is awake, alert, and fully oriented, in no acute distress. LUNGS: Breath sounds equal, clear to auscultation bilaterally, no wheezes, no crackles, no accessory muscle use. HEART: Regular rate and rhythm, S1, S2 ABDOMEN: Soft, nontender, nondistended EXTREMITIES: 2+ pulses, warm, well-perfused, no edema. NEUROLOGICAL: Cranial nerves II through XII grossly intact. Normal speech, gait not observed. : Kim in place; gross hematuria Laboratory Results - last 24 hr 05/14/17 05/15/17 05/15/17 23:28 06:01 06:17 WBC 4.9 D RBC 3.16 L Hgb 9.4 L Hct 28.3 L MCV 89.6 MCH 29.8 MCHC 33.3 RDW 14.7 Plt Count 246 MPV 7.1 L POC Glucometer 116 101 Hemoglobin A1c % 05/15/17 05/15/17 05/15/17 11:00 11:46 16:44 WBC RBC Hgb Hct MCV MCH MCHC RDW Plt Count MPV POC Glucometer 114 106 Hemoglobin A1c % 6.3 H Active Medications Generic Name Dose Route Start Last Admin Trade Name Freq PRN Reason Stop Dose Admin Digoxin 0.125 mg 05/15/17 10:00 05/15/17 09:40 Lanoxin - PO 0.125 mg DAILY KEVAN Administration Diltiazem HCl 180 mg 05/14/17 22:00 05/15/17 09:40 Cardizem Cd - PO 180 mg BID KEVAN Administration CEFTRIAXONE 1 G/50 ML PREMIX 50 mls @ 100 mls/hr 05/15/17 12:00 05/15/17 12: 10 Ceftriaxone 1 Gm-D5w Bag IVPB 100 mls/hr DAILY KEVAN Administration Insulin Aspart 1 vial 05/14/17 16:30 05/15/17 16:45 Novolog Vial Sliding Scale - SQ Not Given ACHS KEVAN Protocol Metoprolol Succinate 100 mg 05/14/17 22:00 05/15/17 09:41 Toprol Xl - PO 100 mg BID KEVAN Administration Morphine Sulfate 1 mg 05/13/17 23:03 05/14/17 05:09 Morphine Injection - IVPUSH 1 mg Q4H PRN Administration PAIN ASSESSMENT/PLAN 86 year-old woman with a PMH significant for HTN, HLD, afib, and systolic heart failure. Admitted for hematuria and dysuria. Found to have a large density in urinary bladder, clot v. mass. Hematuria --05/13 US transvaginal: masslike density urinary bladder --05/14 CT pelvis: 7.5 x 6.5cm lesion in bladder, mass v. clot --H/H 12.7 on admission, has trended to 9.4; asymptomatic; hemodynamically stable; no transfusion for now --urology consult was placed on 05/13 at 9:30 pm; several messages left Gram negative UTI --started ceftriaxone (day #1) Vaginal bleeding, ruled out --seen and evaluated by [employer] PROVIDER, no vaginal source Atrial fibrillation --initial pulse was 134, but since then 70s-80s --continue Toprol XL, diltiazem, digoxin (dig level OK per cardilogy) --hold Eliquis due to hematuria Systolic heart failure --02/2016 echo: EF moderately depressed --appears euvolemic NIDDM --Novolog sliding scale coverage Hypertension --BP well-controlled --continue Toprol XL, diltiazem FEN Fluids: PO intake adequate Electrolytes: replete as indicated Nutrition: diabetic low sodium DVT prophylaxis: SCDs; hold chemical prophylaxis due to bleeding issues Dispo: continues to require inpatient care. Visit type - Emergency Visit Emergency Visit: Yes ED Registration Date: 05/14/17 Care time: The patient presented to the Emergency Department on the above date and was hospitalized for further evaluation of their emergent condition. - New Patient This patient is new to me today: Yes Date on this admission: 05/15/17 - Critical Care Critical Care patient: No
[2017-05-16 07:25] LABS: BASO % 0.4 % (0-2.0); EOS % 4.3 % (0-4.5); HEMATOCRIT 28.8 % (32.4-45.2); HEMOGLOBIN 9.4 GM/dL (10.7-15.3); LYMPH % 33.9 % (8-40); MCH 29.4 pg (25.7-33.7); MCHC 32.8 g/dl (32.0-36.0); MEAN CELL VOLUME 89.7 fl (80-96); MEAN PLT VOLUME 7.3 fl (7.5-11.1); MONO % 11.7 % (3.8-10.2); NEUT % 49.7 % (42.8-82.8); PLATELET COUNT 241 K/MM3 (134-434); RBC 3.21 M/mm3 (3.60-5.2); RDW 15.1 % (11.6-15.6); WHITE BLOOD COUNT 6.1 K/mm3 (4.0-10.0)
[2017-05-16] MEDS: INSULIN SLIDING SCALE (NOVOLOG) 1 VIAL SQ SCH ×2 (08:00→11:24)
[2017-05-16 08:02] LABS: ALBUMIN 2.5 g/dl (3.4-5.0); ANION GAP 5 (8-16); BILIRUBIN,TOTAL 0.5 mg/dL (0.2-1.0); BLOOD UREA NITROGEN 16 mg/dL (7-18); CALCIUM 8.3 mg/dL (8.5-10.1); CHLORIDE 107 mmol/L (98-107); CO2 29 mmol/L (21-32); CREATININE 0.6 mg/dL (0.55-1.02); GLUCOSE,RANDOM 89 mg/dL (74-106); MAGNESIUM 1.6 mg/dL (1.8-2.4); POTASSIUM 3.9 mmol/L (3.5-5.1); SGOT/AST 6 U/L (15-37); SGPT/ALT 8 U/L (12-78); SODIUM 141 mmol/L (136-145); TOT PROT 5.5 g/dl (6.4-8.2)
[2017-05-16 08:03] LABS: ALK PHOS 77 U/L (45-117)
--- NOTE | 2017-05-16 09:07 | PN ---
Progress Note, Physician Chief Complaint: hematuria History of Present Illness: no palpitations, cp, sob, syncope - Current Medication List Current Medications: Active Medications Digoxin (Lanoxin -) 0.125 mg PO DAILY [facility] Last Admin: 05/15/17 09:40 Dose: 0.125 mg Diltiazem HCl (Cardizem Cd -) 180 mg PO BID [facility] Last Admin: 05/15/17 21:48 Dose: 180 mg CEFTRIAXONE 1 G/50 ML PREMIX (Ceftriaxone 1 Gm-D5w Bag) 50 mls @ 100 mls/hr IVPB DAILY [facility] Last Admin: 05/15/17 12:10 Dose: 100 mls/hr Insulin Aspart (Novolog Vial Sliding Scale -) 1 vial SQ ACHS [facility] PRN Reason: Protocol Last Admin: 05/15/17 21:48 Dose: Not Given Metoprolol Succinate (Toprol Xl -) 100 mg PO BID [facility] Last Admin: 05/15/17 21:48 Dose: 100 mg Morphine Sulfate (Morphine Injection -) 1 mg IVPUSH Q4H PRN PRN Reason: PAIN Last Admin: 05/14/17 05:09 Dose: 1 mg - Objective Vital Signs: Vital Signs Temperature 98.0 F 05/16/17 05:00 Pulse Rate 72 05/16/17 05:00 Respiratory Rate 18 05/16/17 05:00 Blood Pressure 150/61 05/16/17 05:00 O2 Sat by Pulse Oximetry (%) 99 05/16/17 04:00 Constitutional: Yes: Well Nourished, No Distress, Calm Cardiovascular: Yes: Regular Rate and Rhythm, S1, S2. No: JVD, Gallop, Murmur Respiratory: Yes: Regular, CTA Bilaterally. No: Accessory Muscle Use, Rales Extremities: No: Cold Edema: No Neurological: Yes: Alert, Oriented Psychiatric: No: Agitated Labs: CBC, BMP 05/16/17 07:00 05/16/17 07:00 INR, PTT INR 1.29 (0.82-1.09) H 05/14/17 06:41 - ....Imaging EKG: Other (tele: NSR) Assessment/Plan ekg: afib, rvr, rbbb, lat st depressions CXR: no chf Echo here 02/2016: nl lv size, mod dec lvef, global hk, nl rv, mild-mod mr, mod tr, rvsp 50-60,trace-mild ar, mild pr Echo 07/22: Nl LV/RV. No significant valvular abnormalities. tele: afib, rate controlled Assessment/Plan hematuria: -US/CT showing possible bladder mass - eval pending -ok to hold eliquis for now until cleared to resume by paroxysmal Afib, rapid HR: -rate controlled on dilt 180 bid, toprol 100 bid, and digoxin (level ok) -currently in sinus 05/16 -chadsvasc is 5 (no cva/tia hx) so has indication for ac, was on eliquis 5 mg BID-->hold AC for now as above -no ongoing indication for tele--d/c syst chf: -Nl EF 07/2015 --> 02/2016 (EF mod depressed). 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
[2017-05-16] MEDS: CEFTRIAXONE 1 G/50 ML PREMIX 50 ML IVPB SCH (10:42)
[2017-05-16] MEDS: DIGOXIN 0.125 MG TABLET (FP) PO SCH (10:42)
[2017-05-16] MEDS: METOPROLOL SUCCINATE 100 MG TAB.SR.24H (FP) PO SCH ×2 (10:42→22:59)
[2017-05-16] MEDS ORDERED: MAGNESIUM SULF 50% (8.12 MEQ/2 ML-1 GM VIAL) IVPB ONE (11:04)
--- NOTE | 2017-05-16 11:48 | PN ---
Progress Note, Physician Chief Complaint: Mrs March says she is feeling good today. No cp, sob, n/v. RN states urine is clearer today. - Current Medication List Current Medications: Active Medications Digoxin (Lanoxin -) 0.125 mg PO DAILY [facility] Last Admin: 05/16/17 10:42 Dose: 0.125 mg Diltiazem HCl (Cardizem Cd -) 180 mg PO BID [facility] Last Admin: 05/16/17 10:42 Dose: 180 mg CEFTRIAXONE 1 G/50 ML PREMIX (Ceftriaxone 1 Gm-D5w Bag) 50 mls @ 100 mls/hr IVPB DAILY [facility] Last Admin: 05/16/17 10:42 Dose: 100 mls/hr Insulin Aspart (Novolog Vial Sliding Scale -) 1 vial SQ ACHS [facility] PRN Reason: Protocol Last Admin: 05/16/17 11:24 Dose: Not Given Metoprolol Succinate (Toprol Xl -) 100 mg PO BID [facility] Last Admin: 05/16/17 10:42 Dose: 100 mg Morphine Sulfate (Morphine Injection -) 1 mg IVPUSH Q4H PRN PRN Reason: PAIN Last Admin: 05/14/17 05:09 Dose: 1 mg - Objective Vital Signs: Vital Signs Temperature 36.8 C 05/16/17 09:00 Pulse Rate 68 05/16/17 10:42 Respiratory Rate 14 05/16/17 09:00 Blood Pressure 114/60 05/16/17 09:00 O2 Sat by Pulse Oximetry (%) 99 05/16/17 04:00 Constitutional: Yes: Well Nourished, No Distress, Calm Cardiovascular: Yes: Regular Rate and Rhythm. No: Gallop, Murmur, Rub Respiratory: Yes: Regular, CTA Bilaterally. No: Rales, Rhonchi, Wheezes Gastrointestinal: Yes: Normal Bowel Sounds, Soft. No: Distention, Tenderness Genitourinary: Yes: Kim Present, Hematuria Extremities: Yes: WNL Edema: No Labs: CBC, BMP 05/16/17 07:00 05/16/17 07:00 INR, PTT INR 1.29 (0.82-1.09) H 05/14/17 06:41 Problem List - Problems (1) Hematuria Assessment/Plan: -urology consulted and awaiting recommendations -RN states urine is clearer today, still quite red -continue hydration and UTI treatment -monitor -hold eliquis currently Code(s): R31.9 - HEMATURIA, UNSPECIFIED Qualifiers: Hematuria type: gross Qualified Code(s): R31.0 - Gross hematuria (2) UTI (urinary tract infection) Assessment/Plan: -urine cultures growing two types of e coli -both susceptible to rocephin -continue rocephin currently Code(s): N39.0 - URINARY TRACT INFECTION, SITE NOT SPECIFIED Qualifiers: Urinary tract infection type: acute cystitis Hematuria presence: with hematuria Qualified Code(s): N30.01 - Acute cystitis with hematuria (3) Paroxysmal atrial fibrillation with RVR Assessment/Plan: -appreciate cardiology assistance -holding eliquis currently -continue toprol xl, cardizem, and digoxin Code(s): I48.0 - PAROXYSMAL ATRIAL FIBRILLATION (4) CAD (coronary artery disease) Assessment/Plan: -appreciate cardiology assistance -quiescent Code(s): I25.10 - ATHSCL HEART DISEASE OF [place] CORONARY ARTERY W/O ANG PCTRS (5) Diabetes Assessment/Plan: -continue diabetic diet -FSBS well controlled, will stop FSBS and follow on BMP -will d/w Dr Mcguire about metformin Code(s): E11.9 - TYPE 2 DIABETES MELLITUS WITHOUT COMPLICATIONS (6) HTN (hypertension) Assessment/Plan: -controlled -continue diltiazem and toprol xl Code(s): I10 - ESSENTIAL (PRIMARY) HYPERTENSION
--- NOTE | 2017-05-16 12:46 | CON.GU ---
Consult - History of Present Illness History of Present Illness: 86 yo female admitted with gross hematuria, dysuria, freq, and suprapubic pain. On Eliquus for Afib. Hematuria now resolved, has belcher. On Ceftriaxone. Urine culture positive for 2 different types of E coli. CT pelvis noncontrast and transvag sono both show mass in bladder-clot vs lesion. - Past Medical History Cardio/Vascular: Yes: AFIB, CAD, HTN, Hyperlipdemia ...: No Endocrine: Yes: Diabetes Mellitus - Past Surgical History Past Surgical History: Yes: None - Alcohol/Substance Use Hx Alcohol Use: No History of Substance Use: reports: None - Smoking History Smoking history: Never smoked Have you smoked in the past 12 months: No - Social History ADL: Independent History of Recent Travel: No Home Medications - Allergies Allergies/Adverse Reactions: Allergies Allergy/AdvReac Type Severity Reaction Status Date / Time No Known Allergies Allergy Verified 05/13/17 16:14 - Home Medications Home Medications: Ambulatory Orders Apixaban [Eliquis -] 5 mg PO BID 05/13/17 Digoxin 125 mcg PO DAILY 05/13/17 Diltiazem HCl [Cartia Xt] 180 mg PO BID 05/13/17 Docusate Sodium [Colace -] 100 mg PO BID 05/13/17 Metformin HCl [Glucophage -] 850 mg PO BID 05/13/17 Metoprolol Succinate [Toprol Xl -] 100 mg PO BID 05/13/17 Family Disease History - Family Disease History Family Disease History: Other: Father (cva), Son (cva,htn) Physical Exam- Vital Signs: Vital Signs Temperature 98.2 F 05/16/17 09:00 Pulse Rate 68 05/16/17 10:42 Respiratory Rate 14 05/16/17 09:00 Blood Pressure 114/60 05/16/17 09:00 O2 Sat by Pulse Oximetry (%) 99 05/16/17 04:00 Renal/: Yes: Belcher Present Labs: CBC, BMP 05/16/17 07:00 05/16/17 07:00 Imaging - Results Cat Scan: Report Reviewed Problem List - Problems (1) Hematuria Assessment/Plan: will d/c belcher, repeat CT scan with and without IV contrast Code(s): R31.9 - HEMATURIA, UNSPECIFIED
[2017-05-17 07:39] LABS: ANION GAP 6 (8-16); BLOOD UREA NITROGEN 15 mg/dL (7-18); CALCIUM 8.4 mg/dL (8.5-10.1); CHLORIDE 106 mmol/L (98-107); CO2 29 mmol/L (21-32); CREATININE 0.6 mg/dL (0.55-1.02); GLUCOSE,RANDOM 90 mg/dL (74-106); MAGNESIUM 1.9 mg/dL (1.8-2.4); PHOSPHOROUS 2.7 mg/dL (2.5-4.9); POTASSIUM 3.9 mmol/L (3.5-5.1); SODIUM 141 mmol/L (136-145)
[2017-05-17 07:50] LABS: BASO % 0.4 % (0-2.0); EOS % 4.4 % (0-4.5); HEMATOCRIT 28.5 % (32.4-45.2); HEMOGLOBIN 9.3 GM/dL (10.7-15.3); LYMPH % 32.5 % (8-40); MCH 29.2 pg (25.7-33.7); MCHC 32.5 g/dl (32.0-36.0); MEAN CELL VOLUME 89.8 fl (80-96); MEAN PLT VOLUME 7.1 fl (7.5-11.1); MONO % 12.3 % (3.8-10.2); NEUT % 50.4 % (42.8-82.8); PLATELET COUNT 246 K/MM3 (134-434); RBC 3.17 M/mm3 (3.60-5.2); RDW 14.6 % (11.6-15.6); WHITE BLOOD COUNT 5.9 K/mm3 (4.0-10.0)
[2017-05-17] MEDS: CEFTRIAXONE 1 G/50 ML PREMIX 50 ML IVPB SCH (10:11)
[2017-05-17] MEDS: METOPROLOL SUCCINATE 100 MG TAB.SR.24H (FP) PO SCH ×2 (10:11→21:28)
[2017-05-17] MEDS: DIGOXIN 0.125 MG TABLET (FP) PO SCH (10:11)
--- NOTE | 2017-05-17 11:42 | PN ---
Progress Note (short form) - Note Progress Note: Chief Complaint: hematuria History of Present Illness: no palpitations, cp, sob, syncope. no further bleeding. Current Medications Digoxin (Lanoxin -) 0.125 mg PO DAILY [facility] Last Admin: 05/17/17 10:11 Dose: 0.125 mg Diltiazem HCl (Cardizem Cd -) 180 mg PO BID [facility] Last Admin: 05/17/17 10:11 Dose: 180 mg CEFTRIAXONE 1 G/50 ML PREMIX (Ceftriaxone 1 Gm-D5w Bag) 50 mls @ 100 mls/hr IVPB DAILY [facility] Last Admin: 05/17/17 10:11 Dose: 100 mls/hr Metoprolol Succinate (Toprol Xl -) 100 mg PO BID [facility] Last Admin: 05/17/17 10:11 Dose: 100 mg - Objective Vital Signs: Vital Signs - 24 hr 05/16/17 05/16/17 05/16/17 12:00 15:00 18:00 Temperature 98.4 F 97.4 F L Pulse Rate 70 82 Respiratory 18 18 18 Rate Blood Pressure 135/54 102/41 O2 Sat by Pulse 94 L Oximetry (%) 05/16/17 05/17/17 05/17/17 20:00 06:32 10:00 Temperature 98.2 F 97.8 F 98.2 F Pulse Rate 75 67 64 Respiratory 20 20 14 Rate Blood Pressure 113/65 141/67 118/76 O2 Sat by Pulse 92 L Oximetry (%) 05/17/17 10:11 Temperature Pulse Rate 66 Respiratory Rate Blood Pressure O2 Sat by Pulse Oximetry (%) Intake & Output 05/15/17 05/16/17 05/17/17 05/18/17 07:59 07:59 07:59 07:59 Intake Total 1356 1010 50 Output Total 1150 1100 200 Balance 206 -90 -150 Constitutional: Yes: Well Nourished, No Distress, Calm Cardiovascular: Yes: Regular Rate and Rhythm, S1, S2. No: JVD, Gallop, Murmur Respiratory: Yes: Regular, CTA Bilaterally. No: Accessory Muscle Use, Rales Extremities: No: Cold Edema: No Neurological: Yes: Alert, Oriented Psychiatric: No: Agitated Labs: CBC, BMP 05/17/17 06:50 05/17/17 06:50 Laboratory Tests 05/13/17 05/16/1718 21:15 07:00 06:50 Magnesium 1.9 Albumin 2.5 L D Stool Occult Blood Positive - ....Imaging EKG: Other (prior tele: NSR) Assessment/Plan ekg: afib, rvr, rbbb, lat st depressions CXR: no chf Echo here 02/2016: nl lv size, mod dec lvef, global hk, nl rv, mild-mod mr, mod tr, rvsp 50-60,trace-mild ar, mild pr Echo 07/22: Nl LV/RV. No significant valvular abnormalities. tele: afib, rate controlled Assessment/Plan hematuria: -US/CT showing possible bladder mass - following. belcher d/c, repeat abd/pelvis ct pending. -ok to hold eliquis for now until cleared to resume by paroxysmal Afib, rapid HR: -rate controlled on dilt 180 bid, toprol 100 bid, and digoxin (level ok). in sinus 05/16, now off tele. -chadsvasc is 5 (no cva/tia hx) so has indication for ac, was on eliquis 5 mg BID-->hold AC for now as above. both hematuria and + occult blood in stool. syst chf: -Nl EF 07/2015 --> 02/2016 (EF mod depressed). 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 monitor for hypotension, intermittently running low.
--- NOTE | 2017-05-17 13:16 | PN ---
Progress Note, Physician Chief Complaint: Mrs March says she is feeling much better. Says her urine has cleared and she is feeling well. Asking if she can go home soon. Denies cp, sob, n/v. - Current Medication List Current Medications: Active Medications Digoxin (Lanoxin -) 0.125 mg PO DAILY [facility] Last Admin: 05/17/17 10:11 Dose: 0.125 mg Diltiazem HCl (Cardizem Cd -) 180 mg PO BID [facility] Last Admin: 05/17/17 10:11 Dose: 180 mg CEFTRIAXONE 1 G/50 ML PREMIX (Ceftriaxone 1 Gm-D5w Bag) 50 mls @ 100 mls/hr IVPB DAILY [facility] Last Admin: 05/17/17 10:11 Dose: 100 mls/hr Metoprolol Succinate (Toprol Xl -) 100 mg PO BID [facility] Last Admin: 05/17/17 10:11 Dose: 100 mg - Objective Vital Signs: Vital Signs Temperature 36.8 C 05/17/17 10:00 Pulse Rate 66 05/17/17 10:11 Respiratory Rate 14 05/17/17 12:00 Blood Pressure 118/76 05/17/17 10:00 O2 Sat by Pulse Oximetry (%) 95 05/17/17 12:00 Constitutional: Yes: Well Nourished, No Distress, Calm Cardiovascular: Yes: Pulse Irregular. No: Tachycardia, Gallop, Murmur, Rub Respiratory: Yes: Regular, CTA Bilaterally. No: Rales, Rhonchi, Wheezes Gastrointestinal: Yes: Normal Bowel Sounds, Soft. No: Distention, Tenderness Extremities: Yes: WNL Edema: No Labs: CBC, BMP 05/17/17 06:50 05/17/17 06:50 INR, PTT INR 1.29 (0.82-1.09) H 05/14/17 06:41 Problem List - Problems (1) Hematuria Code(s): R31.9 - HEMATURIA, UNSPECIFIED Qualifiers: Hematuria type: gross Qualified Code(s): R31.0 - Gross hematuria (2) UTI (urinary tract infection) Code(s): N39.0 - URINARY TRACT INFECTION, SITE NOT SPECIFIED Qualifiers: Urinary tract infection type: acute cystitis Hematuria presence: with hematuria Qualified Code(s): N30.01 - Acute cystitis with hematuria (3) Paroxysmal atrial fibrillation with RVR Code(s): I48.0 - PAROXYSMAL ATRIAL FIBRILLATION (4) CAD (coronary artery disease) Code(s): I25.10 - ATHSCL HEART DISEASE OF [place] CORONARY ARTERY W/O ANG PCTRS (5) Diabetes Code(s): E11.9 - TYPE 2 DIABETES MELLITUS WITHOUT COMPLICATIONS (6) HTN (hypertension) Code(s): I10 - ESSENTIAL (PRIMARY) HYPERTENSION (7) Emphysematous cystitis Code(s): N30.80 - OTHER CYSTITIS WITHOUT HEMATURIA Assessment/Plan (1) Hematuria Assessment/Plan: -currently resolved -appreciate urology assistance -radiology discussed reading with me, found to have emphysematous cystitis -secondary to cystitis -continue antibiotics as below Code(s): R31.9 - HEMATURIA, UNSPECIFIED Qualifiers: Hematuria type: gross Qualified Code(s): R31.0 - Gross hematuria (2) UTI (urinary tract infection) Assessment/Plan: -urine cultures growing two types of e coli -both susceptible to rocephin -continue rocephin currently, day 3 Code(s): N39.0 - URINARY TRACT INFECTION, SITE NOT SPECIFIED Qualifiers: Urinary tract infection type: acute cystitis Hematuria presence: with hematuria Qualified Code(s): N30.01 - Acute cystitis with hematuria (3) Paroxysmal atrial fibrillation with RVR Assessment/Plan: -appreciate cardiology assistance -holding eliquis currently -continue toprol xl, cardizem, and digoxin Code(s): I48.0 - PAROXYSMAL ATRIAL FIBRILLATION (4) CAD (coronary artery disease) Assessment/Plan: -appreciate cardiology assistance -quiescent Code(s): I25.10 - ATHSCL HEART DISEASE OF [place] CORONARY ARTERY W/O ANG PCTRS (5) Diabetes Assessment/Plan: -continue diabetic diet Code(s): E11.9 - TYPE 2 DIABETES MELLITUS WITHOUT COMPLICATIONS (6) HTN (hypertension) Assessment/Plan: -controlled -continue diltiazem and toprol xl Code(s): I10 - ESSENTIAL (PRIMARY) HYPERTENSION (7) Emphysematous cystitis -seen on CT scan -secondary to cystitis from e. coli -per research, treatment with antibiotics causes resolution over time -outpatient urology follow up as well if indicated
[2017-05-18 08:54] LABS: BASO % 0.6 % (0-2.0); EOS % 6.2 % (0-4.5); HEMATOCRIT 29.7 % (32.4-45.2); HEMOGLOBIN 9.5 GM/dL (10.7-15.3); LYMPH % 35.8 % (8-40); MCH 29.1 pg (25.7-33.7); MCHC 32.1 g/dl (32.0-36.0); MEAN CELL VOLUME 90.5 fl (80-96); MEAN PLT VOLUME 7.3 fl (7.5-11.1); MONO % 11.7 % (3.8-10.2); NEUT % 45.7 % (42.8-82.8); PLATELET COUNT 253 K/MM3 (134-434); RBC 3.28 M/mm3 (3.60-5.2); RDW 14.9 % (11.6-15.6); WHITE BLOOD COUNT 5.1 K/mm3 (4.0-10.0)
[2017-05-18 09:10] LABS: CHLORIDE 108 mmol/L (98-107); POTASSIUM 3.9 mmol/L (3.5-5.1); SODIUM 142 mmol/L (136-145)
[2017-05-18 09:16] LABS: ANION GAP 6 (8-16); BLOOD UREA NITROGEN 16 mg/dL (7-18); CALCIUM 8.9 mg/dL (8.5-10.1); CO2 28 mmol/L (21-32); CREATININE 0.6 mg/dL (0.55-1.02); GLUCOSE,RANDOM 99 mg/dL (74-106); MAGNESIUM 1.9 mg/dL (1.8-2.4); PHOSPHOROUS 2.8 mg/dL (2.5-4.9)
[2017-05-18] MEDS: DIGOXIN 0.125 MG TABLET (FP) PO SCH (09:26)
[2017-05-18] MEDS: CEFTRIAXONE 1 G/50 ML PREMIX 50 ML IVPB SCH (09:26)
[2017-05-18] MEDS: METOPROLOL SUCCINATE 100 MG TAB.SR.24H (FP) PO SCH ×2 (09:26→21:39)
--- NOTE | 2017-05-18 10:50 | PN ---
Progress Note (short form) - Note Progress Note: s: no cp sob palps dizzy o: Vital Signs Period Temp Pulse Resp BP Sys/Lazaro Pulse Ox Last 24 Hr 98 F-98.8 F 65-75 14-20 115-152/46-70 95-95 Constitutional: Yes: Well Nourished, No Distress Eyes: No: Sclera Icterus Respiratory: Yes: CTA Bilaterally. No: Accessory Muscle Use, Rales Gastrointestinal: Yes: Normal Bowel Sounds. No: Distention, Hepatomegaly, Palpable Mass, Tenderness Cardiovascular: Yes: Pulse Irregular JVD: No Heart Sounds: Yes: S1, S2. No: Gallop Murmur: No: Systolic Murmur, Diastolic Murmur Extremities: No: Cold, Cyanosis Edema: No Integumentary: No: Jaundice Neurological: Yes: Alert, Oriented (x3) Psychiatric: No: Agitated Current Medications Generic Name Dose Route Start Last Admin Trade Name Freq PRN Reason Stop Dose Admin Digoxin 0.125 mg 05/15/17 10:00 05/18/17 09:26 Lanoxin - PO 0.125 mg DAILY [facility] Administration Diltiazem HCl 180 mg 05/14/17 22:00 05/18/17 09:27 Cardizem Cd - PO 180 mg BID [facility] Administration CEFTRIAXONE 1 G/50 ML PREMIX 50 mls @ 100 mls/hr 05/15/17 12:00 05/18/17 09: 26 Ceftriaxone 1 Gm-D5w Bag IVPB 100 mls/hr DAILY [facility] Administration Metoprolol Succinate 100 mg 05/14/17 22:00 05/18/17 09:26 Toprol Xl - PO 100 mg BID [facility] Administration CBC, BMP 05/18/17 07:09 05/18/17 07:09 ekg: afib, rvr, rbbb, lat st depressions CXR: no chf Echo here 02/2016: nl lv size, mod dec lvef, global hk, nl rv, mild-mod mr, mod tr, rvsp 50-60,trace-mild ar, mild pr Echo 07/22: Nl LV/RV. No significant valvular abnormalities. Assessment/Plan hematuria: -2/2 cystitis - following. -ok to hold eliquis for now until cleared to resume by paroxysmal Afib, rapid HR: -rate controlled on dilt 180 bid, toprol 100 bid, and digoxin (level ok). in sinus 05/16, now off tele. -chadsvasc is 5 (no cva/tia hx) so has indication for ac, was on eliquis 5 mg BID-->hold AC for now as above. syst chf: -Nl EF 07/2015 --> 02/2016 (EF mod depressed). 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 monitor for hypotension, intermittently running low.
--- NOTE | 2017-05-18 11:27 | PN ---
Progress Note, Physician Chief Complaint: Mrs March says she is doing well. No cp, sob, n/v. Says her bleeding has resolved. - Current Medication List Current Medications: Active Medications Digoxin (Lanoxin -) 0.125 mg PO DAILY [facility] Last Admin: 05/18/17 09:26 Dose: 0.125 mg Diltiazem HCl (Cardizem Cd -) 180 mg PO BID [facility] Last Admin: 05/18/17 09:27 Dose: 180 mg CEFTRIAXONE 1 G/50 ML PREMIX (Ceftriaxone 1 Gm-D5w Bag) 50 mls @ 100 mls/hr IVPB DAILY [facility] Last Admin: 05/18/17 09:26 Dose: 100 mls/hr Metoprolol Succinate (Toprol Xl -) 100 mg PO BID [facility] Last Admin: 05/18/17 09:26 Dose: 100 mg - Objective Vital Signs: Vital Signs Temperature 36.6 C 05/18/17 09:00 Pulse Rate 74 05/18/17 09:26 Respiratory Rate 20 05/18/17 09:00 Blood Pressure 152/70 05/18/17 09:00 O2 Sat by Pulse Oximetry (%) 95 05/18/17 04:00 Constitutional: Yes: Well Nourished, No Distress, Calm Cardiovascular: Yes: Pulse Irregular. No: Tachycardia, Gallop, Murmur, Rub Respiratory: Yes: Regular, CTA Bilaterally. No: Rales, Rhonchi, Wheezes Gastrointestinal: Yes: Normal Bowel Sounds, Soft. No: Distention, Tenderness Extremities: Yes: WNL Edema: No Labs: CBC, BMP 05/18/17 07:09 05/18/17 07:09 INR, PTT INR 1.29 (0.82-1.09) H 05/14/17 06:41 Problem List - Problems (1) Hematuria Code(s): R31.9 - HEMATURIA, UNSPECIFIED Qualifiers: Hematuria type: gross Qualified Code(s): R31.0 - Gross hematuria (2) UTI (urinary tract infection) Code(s): N39.0 - URINARY TRACT INFECTION, SITE NOT SPECIFIED Qualifiers: Urinary tract infection type: acute cystitis Hematuria presence: with hematuria Qualified Code(s): N30.01 - Acute cystitis with hematuria (3) Paroxysmal atrial fibrillation with RVR Code(s): I48.0 - PAROXYSMAL ATRIAL FIBRILLATION (4) CAD (coronary artery disease) Code(s): I25.10 - ATHSCL HEART DISEASE OF [place] CORONARY ARTERY W/O ANG PCTRS (5) Diabetes Code(s): E11.9 - TYPE 2 DIABETES MELLITUS WITHOUT COMPLICATIONS (6) HTN (hypertension) Code(s): I10 - ESSENTIAL (PRIMARY) HYPERTENSION (7) Emphysematous cystitis Code(s): N30.80 - OTHER CYSTITIS WITHOUT HEMATURIA Assessment/Plan (1) Hematuria Assessment/Plan: -currently resolved -appreciate urology and gynecology assistance -will need urology recommendations on when safe to resume eliquis given emphysematous cystitis Code(s): R31.9 - HEMATURIA, UNSPECIFIED Qualifiers: Hematuria type: gross Qualified Code(s): R31.0 - Gross hematuria (2) UTI (urinary tract infection) Assessment/Plan: -urine cultures growing two types of e coli -both susceptible to rocephin -continue rocephin currently, day 4/7 -will discuss with urology, but considering 10-14 day course of antibiotics since with emphysematous cystitis Code(s): N39.0 - URINARY TRACT INFECTION, SITE NOT SPECIFIED Qualifiers: Urinary tract infection type: acute cystitis Hematuria presence: with hematuria Qualified Code(s): N30.01 - Acute cystitis with hematuria (3) Paroxysmal atrial fibrillation with RVR Assessment/Plan: -appreciate cardiology assistance -holding eliquis currently -continue toprol xl, cardizem, and digoxin Code(s): I48.0 - PAROXYSMAL ATRIAL FIBRILLATION (4) CAD (coronary artery disease) Assessment/Plan: -appreciate cardiology assistance -quiescent Code(s): I25.10 - ATHSCL HEART DISEASE OF [place] CORONARY ARTERY W/O ANG PCTRS (5) Diabetes Assessment/Plan: -continue diabetic diet Code(s): E11.9 - TYPE 2 DIABETES MELLITUS WITHOUT COMPLICATIONS (6) HTN (hypertension) Assessment/Plan: -controlled -continue diltiazem and toprol xl Code(s): I10 - ESSENTIAL (PRIMARY) HYPERTENSION (7) Emphysematous cystitis -seen on CT scan -secondary to cystitis from e. coli -per research, treatment with antibiotics causes resolution over time -outpatient urology follow up as well if indicated
--- NOTE | 2017-05-18 12:45 | CON.OBG ---
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: Denies any hx/o fibroids, ovarian cyst, STI, abnormal pap smears; unsure re : menopause POBHx: x 3 - History Source History Provided By: Patient Limitations to Obtaining History: No Limitations - Past Medical History Cardio/Vascular: Yes: AFIB, CAD, HTN, Hyperlipdemia ...: No ...: 3 Endocrine: Yes: Diabetes Mellitus - Past Surgical History Past Surgical History: Yes: None Additional Surgical History: Left Hip surgery - Alcohol/Substance Use Hx Alcohol Use: No History of Substance Use: reports: None - Smoking History Smoking history: Never smoked Have you smoked in the past 12 months: No - Social History ADL: Independent History of Recent Travel: No Home Medications - Allergies Allergies/Adverse Reactions: Allergies Allergy/AdvReac Type Severity Reaction Status Date / Time No Known Allergies Allergy Verified 05/13/17 16:14 - Home Medications Home Medications: Ambulatory Orders Apixaban [Eliquis -] 5 mg PO BID 05/13/17 Digoxin 125 mcg PO DAILY 05/13/17 Diltiazem HCl [Cartia Xt] 180 mg PO BID 05/13/17 Docusate Sodium [Colace -] 100 mg PO BID 05/13/17 Metformin HCl [Glucophage -] 850 mg PO BID 05/13/17 Metoprolol Succinate [Toprol Xl -] 100 mg PO BID 05/13/17 Family Disease History - Family Disease History Family History: Denies Family Disease History: Other: Father (cva), Son (cva,htn) Review of Systems - Review of Systems Constitutional: reports: No Symptoms Eyes: reports: No Symptoms Cardiovascular: reports: No Symptoms Respiratory: reports: No Symptoms Gastrointestinal: reports: No Symptoms Genitourinary: reports: No Symptoms Musculoskeletal: reports: No Symptoms Neurological: reports: No Symptoms Hematology/Lymphatic: reports: No Symptoms Psychiatric: reports: No Symptoms Physical Exam-[employer] MACH[employer]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 Vital Signs: Vital Signs Temperature 98 F 05/18/17 09:00 Pulse Rate 74 05/18/17 09:26 Respiratory Rate 20 05/18/17 09:00 Blood Pressure 152/70 05/18/17 09:00 O2 Sat by Pulse Oximetry (%) 95 05/18/17 04:00 Constitutional: Yes: No Distress, Calm HENT: Yes: Atraumatic Neck: Yes: Supple Cardiovascular: Yes: Pulse Irregular Respiratory: Yes: CTA Bilaterally Gastrointestinal: Yes: Normal Bowel Sounds, Soft ...Rectal Exam: Yes: Deferred Pelvis: Yes: Other (no bleeding noted on underwear) Internal Exam Deferred: Yes Edema: No Psychiatric: Yes: Alert, Oriented Labs: CBC, BMP 05/18/17 07:09 05/18/17 07:09 Assessment/Plan 86 yo admitted with vaginal bleeding / hematuria, ultrasound and CT suspicious for clot in bladder, improved s/p antibiotics. Patient denies any additional vaginal bleeding. Imaging also with normal sized uterus and ovaries, however uterus was not able to be adequately visualized on ultrasound. Given improvement in symptoms with antibiotics, likely bleeding is primarily from urethera / bladder. Would recommend pelvic ultrasound as an outpatient to adequately assess uterine lining. Postmenopausal bleeding precautions reviewed with patient and . No acute surgical gynecologic intervention needed at this time.
[2017-05-19 07:43] LABS: BASO % 0.6 % (0-2.0); EOS % 6.2 % (0-4.5); HEMATOCRIT 28.5 % (32.4-45.2); HEMOGLOBIN 9.3 GM/dL (10.7-15.3); LYMPH % 34.3 % (8-40); MCH 29.4 pg (25.7-33.7); MCHC 32.5 g/dl (32.0-36.0); MEAN CELL VOLUME 90.4 fl (80-96); MEAN PLT VOLUME 6.7 fl (7.5-11.1); MONO % 13.2 % (3.8-10.2); NEUT % 45.7 % (42.8-82.8); PLATELET COUNT 263 K/MM3 (134-434); RBC 3.16 M/mm3 (3.60-5.2); RDW 15.1 % (11.6-15.6)
[2017-05-19 08:21] LABS: CHLORIDE 107 mmol/L (98-107); SODIUM 140 mmol/L (136-145)
[2017-05-19 08:31] LABS: ANION GAP 6 (8-16); BLOOD UREA NITROGEN 17 mg/dL (7-18); CALCIUM 8.8 mg/dL (8.5-10.1); CO2 27 mmol/L (21-32); CREATININE 0.7 mg/dL (0.55-1.02); GLUCOSE,RANDOM 102 mg/dL (74-106); MAGNESIUM 1.9 mg/dL (1.8-2.4); PHOSPHOROUS 2.9 mg/dL (2.5-4.9)
[2017-05-19] MEDS ORDERED: PT OWN MED DRAWER 7, Y5N ONE (09:44)
[2017-05-19] MEDS: METOPROLOL SUCCINATE 100 MG TAB.SR.24H (FP) PO SCH (09:49)
[2017-05-19] MEDS: DIGOXIN 0.125 MG TABLET (FP) PO SCH (09:49)
[2017-05-19] MEDS: CEFTRIAXONE 1 G/50 ML PREMIX 50 ML IVPB SCH (09:50)
[2017-05-19 09:57] VITALS: PULSE 81
[2017-05-19 11:09] VITALS: BP 148/70; TEMP 97.3
--- NOTE | 2017-05-19 11:26 | DS ---
Physical Examination Vital Signs: Vital Signs Temperature 36.3 C L 05/19/17 08:25 Pulse Rate 81 05/19/17 09:57 Respiratory Rate 18 05/19/17 08:25 Blood Pressure 148/70 05/19/17 08:25 O2 Sat by Pulse Oximetry (%) 96 05/19/17 09:57 Labs: CBC, BMP 05/19/17 06:30 05/19/17 06:30 Discharge Summary Reason For Visit: HEMATURIA Current Active Problems Abnormal vaginal bleeding (Acute) DVT prophylaxis (Acute) Elevated troponin (Acute) Emphysematous cystitis (Acute) Hematuria (Acute) Paroxysmal atrial fibrillation with RVR (Acute) Condition: Stable - Instructions Diet, Activity, Other Instructions: Resume previous diet and activity. Start oral antibiotics tomorrow on 05/20. Referrals: Santos Mcguire MD [Primary Care Provider] - Disposition: HOME - Home Medications Comprehensive Discharge Medication List: Ambulatory Orders Apixaban [Eliquis -] 5 mg PO BID 05/13/17 Digoxin 125 mcg PO DAILY 05/13/17 Diltiazem HCl [Cartia Xt] 180 mg PO BID 05/13/17 Docusate Sodium [Colace -] 100 mg PO BID 05/13/17 Metformin HCl [Glucophage -] 850 mg PO BID 05/13/17 Metoprolol Succinate [Toprol XL -] 100 mg PO BID 05/13/17 Cefpodoxime Proxetil [Vantin (Nf) -] 100 mg PO BID #16 tablet 05/19/17
== END 2017-05-19 13:02 | disposition home or self-care (01) | DRG 690 ==
LOC: JER 16:03 → JERBED 20:06 → J4W 05-14 01:45 → OBSVTOIN 05-14 11:27 → J8W 05-19 01:05
PROVIDERS: ADMIT Internal Medicine; ATTEND Internal Medicine
DX: N30.81 Other cystitis with hematuria (principal); I50.20 Unspecified systolic (congestive) heart failure; N93.9 Abnormal uterine and vaginal bleeding, unspecified; N39.0 Urinary tract infection, site not specified; I48.0 Paroxysmal atrial fibrillation; I25.10 Atherosclerotic heart disease of native coronary artery without angina pectoris; E11.9 Type 2 diabetes mellitus without complications; I10 Essential (primary) hypertension; I11.0 Hypertensive heart disease with heart failure; E78.5 Hyperlipidemia, unspecified
CPT/HCPCS: 36415; 71045-TC; 72192-TC; 74178-TC; 76830-TC; 80048; 80053; 80162; 81003; 81015; 82272; 82962; 83036; 83735; 84100; 84484; 85025; 85027; 85610; 87086; 87186; 93005; 93010; 97116-GP; 97161-GP; 99285-25; G0378; Q9967

== ENCOUNTER 2018-03-27 15:20 | Emergency (ER) | payer BC, OTHER ==
[2018-03-27 15:33] VITALS: TEMP 98.7; BMI 20.9
--- NOTE | 2018-03-27 15:33 | PDOC ---
Rapid Medical Evaluation Chief Complaint: Hematuria Time Seen by Provider: 03/27/18 15:29 Medical Evaluation: Allergies Allergy/AdvReac Type Severity Reaction Status Date / Time No Known Allergies Allergy Verified 05/13/17 16:14 03/27/18 15:30 87 year old female hematuria x 2 days. denies fever/ chills, abdominal pain, dysuria, NV. patient is currently on coumadin PE; patient alert ox3. A: hematuria P: Ua/ UCX labs Patient to the ER for further management of care. Discharge Disposition - Diagnosis Hematuria Qualifiers: Hematuria type: unspecified type Qualified Code(s): R31.9 - Hematuria, unspecified - Referrals Referrals: Santos Mcguire MD [Primary Care Provider] - - Patient Instructions - Post Discharge Activity
--- NOTE | 2018-03-27 16:14 | PDOC ---
History of Present Illness <Bonnie Horner - Last Filed: 03/27/18 18:06> <Beronica Monahan - Last Filed: 03/27/18 18:43> - History of Present Illness Initial Comments: 87 year old female with PMH of Afib (Eliquis), Diabetes Mellitus, HTN, and recent PMH of hematuria (2/2 cystitis with possible mass/ clot) presenting with bloody urine since yesterday. Patient states that she had sudden onset suprapubic pain and orange/ pink urine that has since become dark brown in character. Denies any fevers, chills, nausea, vomiting, diarrhea, constipation, chest pain, back pain, weakness, lightheadedness, or other symptoms. Her previous admission back in May was for a very similar episode but she had much more pelvic and lower back pain, her HgB was also low then. 03/27/18 16:50 <Du Valdez - Last Filed: 03/27/18 19:12> - General Chief Complaint: Hematuria Stated Complaint: BLOOD IN Urinary Time Seen by Provider: 03/27/18 15:29 Past History <Bonnie Horner - Last Filed: 03/27/18 18:06> <Beronica Monahan - Last Filed: 03/27/18 18:43> - Past Medical History Cardiac Disorders: Yes (a.fib) COPD: No Diabetes: Yes HTN: Yes - Surgical History Orthopedic Surgery: Yes (L HIP FX.) - Immunization History Immunization Up to Date: No - Suicide/Smoking/Psychosocial Hx Smoking History: Never smoked Have you smoked in the past 12 months: No Hx Alcohol Use: No Drug/Substance Use Hx: No Substance Use Type: None Hx Substance Use Treatment: No <Du Valdez - Last Filed: 03/27/18 19:12> - Past Medical History Allergies/Adverse Reactions: Allergies Allergy/AdvReac Type Severity Reaction Status Date / Time No Known Allergies Allergy Verified 03/27/18 15:30 Home Medications: Ambulatory Orders Apixaban [Eliquis -] 5 mg PO BID 05/13/17 Diltiazem HCl [Cartia Xt] 180 mg PO BID 05/13/17 Metoprolol Succinate [Toprol XL -] 100 mg PO BID 05/13/17 metFORMIN HCL [Glucophage -] 850 mg PO BID 05/13/17 Cefpodoxime Proxetil [Vantin (Nf) -] 100 mg PO BID #16 tablet 05/19/17 Nitrofurantoin Monohyd/M-Cryst [Macrobid -] 100 mg PO BID #14 capsule 03/27/18 Review of Systems - Review of Systems Constitutional: No: Chills, Diaphoresis, Fever, Loss of Appetite HEENTM: No: Eye Pain, Blurred Vision, Tearing Respiratory: No: Cough, Orthopnea, Shortness of Breath Cardiac (ROS): Yes: Irregular Heart Rate. No: Edema, Chest Tightness ABD/GI: No: Diarrhea, Nausea, Vomiting : No: Dysuria, Discharge, Frequency Integumentary: No: Lesions, Lumps, Pallor, Pruritus Neurological: No: Headache, Numbness, Paresthesia Psychiatric: No: Anxiety, Depression Endocrine: No: Flushing Hematologic/Lymphatic: No: Anemia, Blood Clots, Easy Bleeding <Du Valdez - Last Filed: 03/27/18 19:12> *Physical Exam - Vital Signs Last Vital Signs Temp Pulse Resp BP Pulse Ox 98.7 F 87 20 129/71 97 03/27/18 15:30 03/27/18 15:30 03/27/18 15:30 03/27/18 15:30 03/27/18 15:30 <Bonnie Horner - Last Filed: 03/27/18 18:06> - Vital Signs Last Vital Signs Temp Pulse Resp BP Pulse Ox 98.7 F 87 20 129/71 97 03/27/18 15:30 03/27/18 15:30 03/27/18 15:30 03/27/18 15:30 03/27/18 15:30 <Beronica Monahan - Last Filed: 03/27/18 18:43> - Vital Signs Last Vital Signs Temp Pulse Resp BP Pulse Ox 98.7 F 87 20 129/71 97 03/27/18 15:30 03/27/18 15:30 03/27/18 15:30 03/27/18 15:30 03/27/18 15:30 - Physical Exam General Appearance: Yes: Nourished, Appropriately Dressed. No: Apparent Distress HEENT: positive: EOMI, CABRERA, Normal ENT Inspection, Normal Voice Neck: positive: Trachea midline, Normal Thyroid, Supple. negative: Tender, Rigid Respiratory/Chest: positive: Lungs Clear, Normal Breath Sounds. negative: Chest Tender, Respiratory Distress, Accessory Muscle Use Cardiovascular: positive: Regular Rhythm, Regular Rate Gastrointestinal/Abdominal: positive: Normal Bowel Sounds, Flat, Soft. negative : Tender Lymphatic: negative: Adenopathy, Tenderness Musculoskeletal: positive: Normal Inspection. negative: Decreased Range of Motion Extremity: positive: Normal Capillary Refill, Normal Inspection, Normal Range of Motion. negative: Tender Integumentary: positive: Normal Color, Dry, Warm Neurologic: positive: take up operator II-XII NML intact, Fully Oriented, Alert, Normal Mood/ Affect, Normal Response, Motor Strength 5/5 <Du Valdez - Last Filed: 03/27/18 19:12> ED Treatment Course - LABORATORY CBC & Chemistry Diagram: 03/27/18 16:11 03/27/18 16:11 - ADDITIONAL ORDERS Additional order review: Laboratory Results 03/27/18 03/27/18 03/27/18 16:28 16:11 16:11 PT with INR 17.30 H INR 1.46 H PTT (Actin FS) 34.3 Sodium 140 Potassium 4.7 Chloride 107 Carbon Dioxide 24 Anion Gap 9 BUN 25 H Creatinine 1.1 Creat Clearance w eGFR 46.98 Random Glucose 132 H Calcium 9.6 Total Bilirubin 0.5 AST 6 L ALT 8 L Alkaline Phosphatase 106 Total Protein 7.2 Albumin 2.9 L Urine Color Red Urine Appearance Turbid Urine pH 7.0 Ur Specific [place] 1.015 Urine Protein 2+ H Urine Glucose (UA) Negative Urine Ketones Negative Urine Blood 3+ H Urine Nitrite Positive Urine Bilirubin Negative Urine Urobilinogen Negative Ur Leukocyte Esterase 2+ H Urine WBC (Auto) 3850 Urine RBC (Auto) 2278 Ur Epithelial Cells Rare 03/27/18 16:11 RBC 4.21 MCV 83.5 MCHC 33.9 RDW 15.9 H MPV 6.9 L Neutrophils % 67.8 D Lymphocytes % 22.3 D Monocytes % 8.6 Eosinophils % 0.9 D Basophils % 0.4 - Consult/PCP Time Called: 18:06 (Paged Dr. Rosa, covering for Dr. Mcguire) <Bonnie Horner - Last Filed: 03/27/18 18:06> - LABORATORY CBC & Chemistry Diagram: 03/27/18 16:11 03/27/18 16:11 - ADDITIONAL ORDERS Additional order review: Laboratory Results 03/27/18 03/27/18 03/27/18 16:28 16:11 16:11 PT with INR 17.30 H INR 1.46 H PTT (Actin FS) 34.3 Sodium 140 Potassium 4.7 Chloride 107 Carbon Dioxide 24 Anion Gap 9 BUN 25 H Creatinine 1.1 Creat Clearance w eGFR 46.98 Random Glucose 132 H Calcium 9.6 Total Bilirubin 0.5 AST 6 L ALT 8 L Alkaline Phosphatase 106 Total Protein 7.2 Albumin 2.9 L Urine Color Red Urine Appearance Turbid Urine pH 7.0 Ur Specific [place] 1.015 Urine Protein 2+ H Urine Glucose (UA) Negative Urine Ketones Negative Urine Blood 3+ H Urine Nitrite Positive Urine Bilirubin Negative Urine Urobilinogen Negative Ur Leukocyte Esterase 2+ H Urine WBC (Auto) 3850 Urine RBC (Auto) 2278 Ur Epithelial Cells Rare 03/27/18 16:11 RBC 4.21 MCV 83.5 MCHC 33.9 RDW 15.9 H MPV 6.9 L Neutrophils % 67.8 D Lymphocytes % 22.3 D Monocytes % 8.6 Eosinophils % 0.9 D Basophils % 0.4 <Beronica Monahan - Last Filed: 03/27/18 18:43> - LABORATORY CBC & Chemistry Diagram: 03/27/18 16:11 03/27/18 16:11 <Du Valdze - Last Filed: 03/27/18 19:12> Medical Decision Making - Medical Decision Making 03/27/18 18:44 87 yo female has hematuria and was referred to ER, no fever, mild suprapubuic pain 03/27/18 18:46 will start antibiotics imp hemorrhagic cystitis <Beronica Monahan - Last Filed: 03/27/18 18:43> - Medical Decision Making 86 year old with AFib presnting with hematuria and suprapubic pain that has since resolved. UA demonstrating UTI so likely hemorrhagic cystitis. Questionable mass vs. blod clot during previous admission in bladder (05/2017) which seemed to be a blood clot as it was not present on repeat CT scan a few days later. Previous cultures sensitve to Macrobid. Gave one dose here and will DC with f/u with Dr. Rosche tomorrow. Appears well and overall stable. 03/27/18 19:09 <José MiguelDu - Last Filed: 03/27/18 19:12> *DC/Admit/Observation/Transfer <Bonnie Horner - Last Filed: 03/27/18 18:06> <Beronica Monahan - Last Filed: 03/27/18 18:43> - Discharge Dispostion Decision to Admit order: No <Du Valdez - Last Filed: 03/27/18 19:12> Diagnosis at time of Disposition: Hematuria Qualifiers: Hematuria type: unspecified type Qualified Code(s): R31.9 - Hematuria, unspecified - Discharge Dispostion Disposition: HOME Condition at time of disposition: Improved - Prescriptions Prescriptions: Nitrofurantoin Monohyd/M-Cryst [Macrobid -] 100 mg PO BID #14 capsule - Referrals Referrals: Santos Mcguire MD [Primary Care Provider] - - Patient Instructions Printed Discharge Instructions: DI for Hematuria Additional Instructions: Please drink plenty of fluid and please take the antibiotics twice a day as directed. Please follow up with Dr. Beard tomorrow to discuss if this antibiotic is appropriate for you as he has followed you for longer. Please return to the ED if you have new or worsening symptoms. - Post Discharge Activity
[2018-03-27 16:27] LABS: BASO % 0.4 % (0-2.0); EOS % 0.9 % (0-4.5); HEMATOCRIT 35.1 % (32.4-45.2); HEMOGLOBIN 11.9 GM/dL (10.7-15.3); LYMPH % 22.3 % (8-40); MCH 28.3 pg (25.7-33.7); MCHC 33.9 g/dl (32.0-36.0); MEAN CELL VOLUME 83.5 fl (80-96); MEAN PLT VOLUME 6.9 fl (7.5-11.1); MONO % 8.6 % (3.8-10.2); NEUT % 67.8 % (42.8-82.8); PLATELET COUNT 367 K/MM3 (134-434); RBC 4.21 M/mm3 (3.60-5.2); RDW 15.9 % (11.6-15.6); WHITE BLOOD COUNT 8.8 K/mm3 (4.0-10.0)
[2018-03-27 16:38] LABS: INR 1.46 (0.83-1.09); PROTHROMBIN TIME (PATIENT) 17.3 SEC (9.7-13.0)
[2018-03-27 16:41] LABS: ACTIVATED PTT 34.3 SECONDS (25.2-36.5)
[2018-03-27 17:03] LABS: ALBUMIN 2.9 g/dl (3.4-5.0); ALK PHOS 106 U/L (45-117); ANION GAP 9 MMOL/L (8-16); BILIRUBIN,TOTAL 0.5 mg/dL (0.2-1); BLOOD UREA NITROGEN 25 mg/dL (7-18); CALCIUM 9.6 mg/dL (8.5-10.1); CHLORIDE 107 mmol/L (98-107); CO2 24 mmol/L (21-32); CREATININE 1.1 mg/dL (0.55-1.3); GLUCOSE,RANDOM 132 mg/dL (74-106); POTASSIUM 4.7 mmol/L (3.5-5.1); SGOT/AST 6 U/L (15-37); SGPT/ALT 8 U/L (13-61); SODIUM 140 mmol/L (136-145); TOT PROT 7.2 g/dl (6.4-8.2)
[2018-03-27 17:31] LABS: URINE APPEARANCE TURBID; URINE BILIRUBIN NEGATIVE (<2.0 mg/dL); URINE COLOR RED; URINE GLUCOSE (UA) NEGATIVE (NEGATIVE); URINE KETONE NEGATIVE (NEGATIVE); URINE LEUK ESTERASE 2+ (NEGATIVE); URINE NITRITE POSITIVE (NEGATIVE); URINE PROTEIN 2+ (NEGATIVE); URINE UROBILINOGEN NEGATIVE mg/dL (0.2-1.0)
[2018-03-27 17:42] LABS: EPI CELLS RARE /HPF (FEW)
--- NOTE | 2018-03-27 19:00 | PDOC ---
Attending Attestation - Resident Resident Name: Du Valdez - ED Attending Attestation I have performed the following: I have examined & evaluated the patient, The case was reviewed & discussed with the resident, I agree w/resident's findings & plan, Exceptions are as noted - HPI HPI: 03/27/18 19:00 Hematuria. No fever, no nausea, no vomiting. She's had suprapubic discomforts comfort - Physicial Exam PE: 03/27/18 19:01 thin,alert 87 female in no acute distress heads ncat neck supple lungs cta bl cvs [id number] and no rebound,no guarding ext no edema neuro axox3,ambulatory skin warm and dry - Medical Decision Making 03/27/18 19:04 UA++ hemorrhagic cystitis d/c home on antibiotics 03/27/18 19:[address] Morton who's covering for Dr Mcguire <Beronica Monahan - Last Filed: 03/27/18 19:17> - HPI HPI: This patient is an 87 year old female, Afib (on eliquis), HTN, DM, recent PMHx of hematuria in May 2017 with diagnosis of hemorrhagic cystitis vs clot in bladder. Patient states that yesterday afternoon she began experiencing a sudden onset of suprapubic pain radiating to lower back. She also noted orange- pink urine. She notes that these symptoms were similar to her previous experience with hematuria last May. She states that her urine is now a darker brown in color. Denies any fever, chills, nausea, vomiting, lightheadedness, chest pain. PCP: Jericho Mcguire <Bonnie Horner - Last Filed: 03/27/18 19:31>
[2018-03-27] MEDS ORDERED: NITROFURANTOIN MACROCRYSTAL 50 MG CAPSULE (FP) PO SCH (19:15)
[2018-03-27 19:25] VITALS: BP 122/70; PULSE 88
[2018-03-27] MEDS ORDERED: NITROFURANTOIN MACROCRYSTAL 50 MG CAPSULE (FP) ONE (19:40)
== END 2018-03-27 19:43 | disposition home or self-care (01) ==
LOC: JER 15:20
DX: N30.01 Acute cystitis with hematuria (principal); I10 Essential (primary) hypertension; E11.9 Type 2 diabetes mellitus without complications; Z79.84 Long term (current) use of oral hypoglycemic drugs; I48.91 Unspecified atrial fibrillation; Z79.01 Long term (current) use of anticoagulants
CPT/HCPCS: 36415; 80053; 81003; 81015; 85025; 85610; 85730; 87086; 87186; 99283-25

== ENCOUNTER 2020-02-10 16:44 | Inpatient (IN) | payer BC, OTHER ==
--- NOTE | 2020-02-10 16:57 | PDOC ---
History of Present Illness - General Stated Complaint: AMS Time Seen by Provider: 02/10/20 16:56 - History of Present Illness Initial Comments: 02/10/20 16:57 89 year old female with PMH of dementia, Afib (Eliquis), Diabetes Mellitus, hx of UTI, HTN BIBA from home for AMS. According to EMS report, her son told that she has been having acute episode of AMS this afternoon. Denied Fall, trauma, coughing, fever, chills. Collateral information was taken from the son. He stated that she had a pneumonia two weeks ago. She recovered fine with antibiotics at home. However, for the past 3 days, he had decreased appetite and complained of leg pain. Went to the PCP where they took xray of her. It was negative for fracture. Today, she was perfectly fine, talking to him this morning. But still complained of legs pain. Laterly on after lunch and feeding, she had an acute episode of AMS. That's why she is here. Collateral information was taken from the granddaughter who is the power personal injury attorney. She is a full code. She has hx of UTI and dementia. Same story was given just like how the dad told. At home, she was able to ambulate with a walker. PMHX: as in HPI PSHX: see below Allergies: none Grey Goods Tester: son, granddaughter. spoke british, understand sami. ROS: can't obtain due to AMS and non verbal. . PE GENERAL: AOx1, nonresponsive, frail. soaked in wet diaper. HEAD: No signs of trauma, normocephalic, atraumatic EYES: PERRLA, EOMI, sclera anicteric, conjunctiva clear ENT: Auricles normal inspection, hearing grossly normal, nares patent, oropharynx clear without exudates. Moist mucosa NECK: Normal ROM, supple, no lymphadenopathy, JVD, or masses LUNGS: No distress, speaks full sentences, clear to auscultation bilaterally HEART: iRegular rate and rhythm, normal S1 and S2, no murmurs, rubs or gallops, peripheral pulses normal and equal bilaterally. ABDOMEN: Soft, nontender, normoactive bowel sounds. No guarding, no rebound. No masses EXTREMITIES : Normal range of motion, +pitting edema (left leg > right leg). Cyanosis on the digits. NEUROLOGICAL: Cranial nerves II through XII grossly intact. Normal speech, normal gait, no focal sensorimotor deficits SKIN: cold, Dry, normal turgor, mulitple ecchimosis notes throughout, pressure ulcers stages 1 noted on extremity and back. 02/10/20 18:06 Past History - Medical History Allergies/Adverse Reactions: Allergies Allergy/AdvReac Type Severity Reaction Status Date / Time No Known Allergies Allergy Verified 03/27/18 15:30 Home Medications: Ambulatory Orders Apixaban [Eliquis -] 5 mg PO BID 05/13/17 Diltiazem HCl [Cartia Xt] 180 mg PO BID 05/13/17 Metoprolol Succinate [Toprol XL -] 100 mg PO BID 05/13/17 metFORMIN HCL [Glucophage -] 850 mg PO BID 05/13/17 Cefpodoxime Proxetil [Vantin (Nf) -] 100 mg PO BID #16 tablet 05/19/17 Nitrofurantoin Monohyd/M-Cryst [Macrobid -] 100 mg PO BID #14 capsule 03/27/18 Cardiac Disorders: Yes (a.fib) COPD: No Diabetes: Yes HTN: Yes - Surgical History Orthopedic Surgery: Yes (L HIP FX.) - Immunization History Immunization Up to Date: No - Psycho-Social/Smoking History Smoking History: Never smoked Have you smoked in the past 12 months: No ED Treatment Course - LABORATORY CBC & Chemistry Diagram: 02/10/20 18:28 02/10/20 18:28 Medical Decision Making - Medical Decision Making 02/10/20 18:44 89 year old female with PMH of dementia, Afib (Eliquis), Diabetes Mellitus, hx of UTI, HTN BIBA from home for AMS Doing a sepsis workup. Most likely Urosepsis. Need to do HEAD CT + CTA if Cr is normal to rule out brain bleed and PE. 02/10/20 18:56 EKG: vent rate 131, QTc 499, A.fib with RVR, PVC , ST depression on V5, 6, STelevation on aVR Not changed, compared to previous EKG. 02/10/20 19:00 02/10/20 19:02 Sign out was given to night team.
[2020-02-10] MEDS ORDERED: dilTIAZem HCL 125 MG/25 ML - 25 ML VIAL ONE (17:05)
--- OUTSIDE RECORDS SUMMARY | 2020-02-10 17:17 | XMS ---
:1930 Author Organization [facility] Support Name Relationship Address Phone RE Unavailable Unavailable Unavailable JAMAAL SON [address] [place] [address] FEIL [address] [place] [address] Re-disclosure Warning The records that you are about to access may contain information from federally- assisted alcohol or drug abuse programs. If such information is present, then the following federally mandated warning applies: This information has been disclosed to you from records protected by federal confidentiality rules (42 CFR part 2). The federal rules prohibit you from making any further disclosure of this information unless further disclosure is expressly permitted by the written consent of the person to whom it pertains or as otherwise permitted by 42 CFR part 2. A general authorization for the release of medical or other information is NOT sufficient for this purpose. The Federal rules restrict any use of the information to criminally investigate or prosecute any alcohol or drug abuse patient.The records that you are about to access may contain highly sensitive health information, the redisclosure of which is protected by Article 27-F of the [facility] Public Health law. If you continue you may haveaccess to information: Regarding HIV / AIDS; Provided by facilities licensed or operated by the [facility] Office of Mental Health; or Provided by the [facility] Office for People With Developmental Disabilities. If such information is present, then the following [facility] mandated warning applies: This information has been disclosed to you from confidential records which are protected by state law. State law prohibits you from making any further disclosure of this information without the specific written consent of the person to whom it pertains, or as otherwise permitted by law. Any unauthorized further disclosure in violation of state law may result in a fine or assisted sentence or both. A general authorization for the release of medical or other information is NOT sufficient authorization for further disclosure. Insurance Providers Payer name Policy type Policy ID Covered Covered republican's Policy P cecile / Coverage republican ID relationship to [employer] type [employer] [id number] [facility] 4
[2020-02-10 18:52] LABS: BASO % 0.1 % (0-2.0); HEMATOCRIT 39.9 % (32.4-45.2); HEMOGLOBIN 13.1 GM/dL (10.7-15.3); LYMPH % 6.4 % (8-40); MCH 26.7 pg (25.7-33.7); MCHC 32.9 g/dl (32.0-36.0); MEAN CELL VOLUME 81.1 fl (80-96); MEAN PLT VOLUME 7.1 fl (7.5-11.1); MONO % 5.4 % (3.8-10.2); NEUT % 88.1 % (42.8-82.8); PLATELET COUNT 307 K/MM3 (134-434); RBC 4.92 M/mm3 (3.60-5.2); WHITE BLOOD COUNT 10.9 K/mm3 (4.0-10.0)
[2020-02-10 18:57] LABS: EPI CELLS >36 /uL (0-25.1); HYALINE CASTS 53 /uL (0-3.1); URINE APPEARANCE TURBID; URINE BACTERIA >9,000 /uL (0-1359); URINE BILIRUBIN 2+ (NEGATIVE); URINE COLOR DK YELLOW; URINE GLUCOSE (UA) NEGATIVE (NEGATIVE); URINE KETONE TRACE (NEGATIVE); URINE LEUK ESTERASE 2+ (NEGATIVE); URINE NITRITE NEGATIVE (NEGATIVE); URINE PROTEIN 2+ (NEGATIVE); URINE WBC 7817 /uL (0-25.8)
[2020-02-10 18:59] LABS: INR 1.68 (0.83-1.09); PROTHROMBIN TIME (PATIENT) 19.9 SEC (9.7-13.0)
[2020-02-10] MEDS ORDERED: PIPERACILLIN/TAZOB 4.5 GM 4.5 GM in DEXTROSE 5%-WATER 100 ML IVPB ONE (19:05)
[2020-02-10] MEDS ORDERED: VANCOMYCIN 1,000 MG in DEXTROSE 5%-WATER - 250 ML IVPB ONE (19:08)
--- NOTE | 2020-02-10 19:10 | PDOC ---
History of Present Illness - General Chief Complaint: Altered Mental Status Stated Complaint: AMS Time Seen by Provider: 02/10/20 16:56 Past History - Medical History Allergies/Adverse Reactions: Allergies Allergy/AdvReac Type Severity Reaction Status Date / Time No Known Allergies Allergy Verified 03/27/18 15:30 Home Medications: Ambulatory Orders Apixaban [Eliquis -] 5 mg PO BID 05/13/17 Diltiazem HCl [Cartia Xt] 180 mg PO BID 05/13/17 Metoprolol Succinate [Toprol XL -] 100 mg PO BID 05/13/17 metFORMIN HCL [Glucophage -] 850 mg PO BID 05/13/17 Cefpodoxime Proxetil [Vantin (Nf) -] 100 mg PO BID #16 tablet 05/19/17 Nitrofurantoin Monohyd/M-Cryst [Macrobid -] 100 mg PO BID #14 capsule 03/27/18 Cardiac Disorders: Yes (a.fib) COPD: No Diabetes: Yes HTN: Yes - Surgical History Orthopedic Surgery: Yes (L HIP FX.) - Immunization History Immunization Up to Date: No - Psycho-Social/Smoking History Smoking History: Never smoked Have you smoked in the past 12 months: No *Physical Exam - Vital Signs Last Vital Signs Temp Pulse Resp BP Pulse Ox 97.4 F L 149 H 25 H 103/76 02/10/20 17:04 02/10/20 18:40 02/10/20 17:00 02/10/20 18:40 ED Treatment Course - LABORATORY CBC & Chemistry Diagram: 02/10/20 18:28 02/10/20 18:28 - ADDITIONAL ORDERS Additional order review: Laboratory Results 02/10/20 02/10/20 02/10/20 18:28 18:28 17:42 PT with INR 19.90 H INR 1.68 H PTT (Actin FS) 30.0 POC Glucometer 93 Urine Color Dk yellow Urine Appearance Turbid Urine pH 5.0 D Ur Specific [place] 1.017 Urine Protein 2+ H Urine Glucose (UA) Negative Urine Ketones Trace H Urine Blood 3+ H Urine Nitrite Negative Urine Bilirubin 2+ H Urine Urobilinogen 1.0 Ur Leukocyte Esterase 2+ H Urine WBC (Auto) 7817 Urine Casts (Auto) 53 U Epithel Cells (Auto) >36 Urine Bacteria (Auto) >9,000 02/10/20 02/10/20 18:28 17:42 RBC 4.92 MCV 81.1 MCHC 32.9 RDW 23.0 H MPV 7.1 L Neutrophils % 88.1 H D Lymphocytes % 6.4 L D Monocytes % 5.4 Eosinophils % 0.0 D Basophils % 0.1 POC Glucometer 93 Medical Decision Making - Medical Decision Making 02/10/20 19:09 sign out received from day team [] AMS from home [] UTI
--- NOTE | 2020-02-10 19:14 | PDOC ---
*Physical Exam - Vital Signs Last Vital Signs Temp Pulse Resp BP Pulse Ox 97.4 F L 149 H 25 H 103/76 02/10/20 17:04 02/10/20 18:40 02/10/20 17:00 02/10/20 18:40 ED Treatment Course - LABORATORY CBC & Chemistry Diagram: 02/10/20 18:28 02/10/20 18:28 - ADDITIONAL ORDERS Additional order review: Laboratory Results 02/10/20 02/10/20 02/10/20 18:28 18:28 17:42 PT with INR 19.90 H INR 1.68 H PTT (Actin FS) 30.0 POC Glucometer 93 Urine Color Dk yellow Urine Appearance Turbid Urine pH 5.0 D Ur Specific [place] 1.017 Urine Protein 2+ H Urine Glucose (UA) Negative Urine Ketones Trace H Urine Blood 3+ H Urine Nitrite Negative Urine Bilirubin 2+ H Urine Urobilinogen 1.0 Ur Leukocyte Esterase 2+ H Urine WBC (Auto) 7817 Urine Casts (Auto) 53 U Epithel Cells (Auto) >36 Urine Bacteria (Auto) >9,000 02/10/20 02/10/20 18:28 17:42 RBC 4.92 MCV 81.1 MCHC 32.9 RDW 23.0 H MPV 7.1 L Neutrophils % 88.1 H D Lymphocytes % 6.4 L D Monocytes % 5.4 Eosinophils % 0.0 D Basophils % 0.1 POC Glucometer 93 Medical Decision Making - Medical Decision Making 02/10/20 19:12 sign out received from day team AMS from home. lives alone, has multiple pressure ulcers UTI - vanc + zosyn [] f/u CT [] f/u labs [] admit 02/10/20 20:41 Per Colin Fuller ([facility]) [phone], full code and no search engine optimization consultant dw Dr. Brand - recs digoxin load 0.5mg initial with 0.25mg redose after 4 hours (up to two tmes) and cardizem drip Will make ICU aware 02/10/20 22:33 ICU [employer]ADER Juliana is aware and will see patient. 02/11/20 03:00 2nd digoxin loading dose to be given patient HR 90s with improved BP s/p dilt gtt and digoxin awaiting ICU note and admission orders Discharge - Discharge Information Problems reviewed: Yes Clinical Impression/Diagnosis: AMS (altered mental status), Atrial fibrillation with RVR UTI (urinary tract infection) Qualifiers: Urinary tract infection type: acute cystitis Hematuria presence: with hematuria Qualified Code(s): N30.01 - Acute cystitis with hematuria Condition: Guarded - Admission Yes - Follow up/Referral - Patient Discharge Instructions - Post Discharge Activity
[2020-02-10 19:24] LABS: BILIRUBIN,TOTAL 1.4 mg/dL (0.2-1); BLOOD UREA NITROGEN 28.8 mg/dL (7-18); CALCIUM 8.5 mg/dL (8.5-10.1); N-TERMINAL BNP 32047.5 pg/ml (5-450); POTASSIUM 3.7 mmol/L (3.5-5.1); TOT PROT 5.5 g/dl (6.4-8.2)
[2020-02-10 19:28] LABS: VENOUS BASE EXCESS -2.6 mmol/L (-2-2); VENOUS O2 SATURATION 42.8 % (70-80); VENOUS PCO2 49.4 mmHg (38-52); VENOUS PH 7.308 (7.310-7.410)
[2020-02-10 19:43] LABS: ANISOCYTOSIS 1+; MACROCYTOSIS 1+
[2020-02-10] MEDS ORDERED: PIPERACILLIN/TAZOB 4.5 GM 4.5 GM/100 ML BAG IVPB ONE (19:47)
[2020-02-10] MEDS ORDERED: VANCOMYCIN 1 GRAM (PRE-DOCKED) 1,000 MG/250 ML BAG IVPB ONE (19:48)
[2020-02-10] MEDS ORDERED: dilTIAZem HCL 50 MG/10 ML - 10 ML VIAL IVPUSH ONE (19:52)
[2020-02-10 19:54] LABS: URINE RBC 375.8 /uL (0-23.9)
--- NOTE | 2020-02-10 20:24 | PDOC ---
Documentation entered by Cecile Ham SCRIBE, acting as scribe for James Diop MD. James Diop MD: This documentation has been prepared by the makedaibeJitendra Ana, SCRIBE, under my direction and personally reviewed by me in its entirety. I confirm that the documentation accurately reflects all work, treatment, procedures, and medical decision making performed by me. Attending Attestation - Resident Resident Name: ShaneJeff - ED Attending Attestation I have performed the following: I have examined & evaluated the patient, The case was reviewed & discussed with the resident, I agree w/resident's findings & plan, Exceptions are as noted - HPI HPI: 02/10/20 17:13 Patient is an 89 year old female with a significant past medical history of dementia, diabetes, hypertension, Afib, UTIs, and a recent hematuria, who presents to the ED, BIBA, with altered mental status. Per patient's son at bedside, patient had pneumonia 2 weeks ago which has since then resolved at home with antibiotics. Patient complained of leg pain x3 days and was taken to PCP for xray which was negative for fracture. Per son, patient had an acute episode of confusion and lethargy for approx 30 mins today which prompted their ED arriv al. He states he kept asking her if she needs water and she was too weak to speak but did not lose consciousness. Patient ambulates with walker at home at baseline. History is limited as pt is confused and is not sure why she is here. Per patients son, pt is full code. Endorses: decreased appetite Denies: trauma, falls, fever, chills, cough, or any other related symptoms. Allergies: NKDA - Physicial Exam PE: 02/10/20 17:15 GENERAL: Lethargic but arousable, oriented to name only HEAD: No signs of trauma, normocephalic, atraumatic EYES: PERRLA, EOMI, sclera anicteric, conjunctiva clear ENT: Nares patent, oropharynx clear without exudates. Dry MM NECK: Normal ROM, supple, no lymphadenopathy, JVD, or masses LUNGS: +diminished BS at the bases, +rales, no wheezing or crackles HEART:irregularly irregular, tachycardic btwn 120-140, no MRG ABDOMEN: Soft, +suprapubic ttp, normoactive bowel sounds. No guarding, no rebound. No masses. No CVAT EXTREMITIES : Normal range of motion, +pitting edema (left leg > right leg). NEUROLOGICAL: Cranial nerves II through XII grossly intact. Normal speech, moving all 4 extremities, gait deferred SKIN: warm, Dry, normal turgor, +anterior iliacs and sacrum stage 1 ulcers - Critical Care Time Total Critical Care Time: 60 Critical Care Statement: The care of this patient involved high complexity decision making to prevent further life threatening deterioration of the patient's condition and/or to evaluate & treat vital organ system(s) failure or risk of failure. - Medical Decision Making 02/10/20 20:13 89yo F with MMP including dementia, Afib on eliquis (confirmed by son), NIDDM presents to the ED with lethargy and poor appetite, found to be in AF with RVR with rate btwn 110-140s and BP at 90s/70s. BP previously 70/40 in the field per EMS, pt has received 500cc NS thus far, remaining 500cc flowing gently. Per pt's son, pt is now at her baseline but appears a bit more fatigued than usual DDx includes sepsis (possible urosepsis given dirty appearing urine and suprapubic ttp) vs CVA vs metabolic disarray vs COVID vs PNA vs cardiac insufficiency/CHF Pt covered empirically with vanc /zosyn Previous EF on echo 4yrs ago reduced to 40% thus will hydrate gently BP is too low for rate control at this time but will consult cardiology for further recs. 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 Brand registration coordinator, recommends dig load 0.5mg and redose 0.25mg in 4-6hrs as well as starting a diltiazem gtt ICU CERTIFIED MEDICAL CODER Juliana consulted, will evaluate pt 02/10/20 21:45 Case accepted to ICU, no beds so pt will remain in ED Per Dr. Reyes (hospitalist), ICU is closed tonight so pt to be admitted to Dr. Sullivan. Confirmed with Dr. Boston CERTIFIED MEDICAL CODER Juliana states she is unable to manage pt while they are in the ED 02/11/20 01:24 BP 112/69, HR 90 Vitals much improved On diltiazem gtt 5mg/hr Will give 2nd dose of digoxin 0.25mg at 3am (6hrs after first) Lactic up to 5 (from 3). Plan to give 250cc and recheck Pt has no complaints at this time 02/11/20 02:20 Case signed out to Dr. York for further mgmt Heart Score/ECG Review #1 02/10/20 20:23 Twelve-lead EKG was performed and reviewed by . Marti fib with rapid ventricular response with single PVC. Normal axis. [address] elevation in aVR with ST depressions in V5 and V6. When compared to previous EKG, no significant changes. Discharge - Discharge Information Problems reviewed: Yes Clinical Impression/Diagnosis: AMS (altered mental status), Atrial fibrillation with RVR UTI (urinary tract infection) Qualifiers: Urinary tract infection type: acute cystitis Hematuria presence: with hematuria Qualified Code(s): N30.01 - Acute cystitis with hematuria Condition: Guarded - Follow up/Referral - Patient Discharge Instructions - Post Discharge Activity
[2020-02-10] MEDS ORDERED: DIGOXIN 0.5 MG/2 ML AMPUL IVPUSH ONE (20:42)
[2020-02-10] MEDS ORDERED: DILTIAZEM INJECTION 125 MG in SODIUM CHLORIDE 100 ML IVPB SCH (20:45)
[2020-02-10] MEDS ORDERED: DIGOXIN 0.5 MG/2 ML AMPUL ONE (20:59)
--- OUTSIDE RECORDS SUMMARY | 2020-02-10 22:28 | XMS ---
:1930 Author Organization [facility] Support Name Relationship Address Phone RE Unavailable Unavailable Unavailable RE Unavailable Unavailable Unavailable JAMAAL SON [address] [place] [address] JAMAAL [address] [place] [address] Re-disclosure Warning The records that you are [...] is protected by Article 27-F of the [facility] Public Health law. If you continue you may haveaccess to information: Regarding HIV / AIDS; Provided by facilities licensed or operated by the [facility] Office of Mental Health; or Provided by the [facility] Office for People With Developmental Disabilities. If such information is present, then the following [facility] mandated warning applies: This information has been [...] law may result in a fine or nursing home sentence or both. A general authorization for the release of medical or other information is NOT sufficient authorization for further disclosure. Insurance Providers Payer name Policy type Policy ID Covered Covered republican's Policy P cecile / Coverage republican ID relationship to [employer] ormation type [employer] [id number] [facility] 4
[2020-02-11] MEDS ORDERED: LACTATED RINGERS SOLUTION 1000 ML INFUS.BAG IV ONE (01:40)
[2020-02-11] MEDS ORDERED: DIGOXIN 0.5 MG/2 ML AMPUL IVPUSH ONE (02:59)
[2020-02-11] MEDS ORDERED: DIGOXIN 0.5 MG/2 ML AMPUL ONE (05:28)
--- NOTE | 2020-02-11 08:31 | CONSULT ---
Consultation: REQUESTING PROVIDER: CONSULT REQUEST: We have been asked to medically evaluate this patient for Afib w/ RVR on a diltiazem gtt HISTORY OF PRESENT ILLNESS: The pt is an 89F from home w/ a history of dementia, Afib (Eliquis), DM, frequent UTIs, HTM who presented from home for evaluation of AMS. Per the record, EMS reported that the son was concerned for 1 day of worsening confusion but denied falls, head trauma, cough, or fevers. Pt reported to have PNA 2 weeks ago s/p abx. Son reported 3 days of decreased appetite and that she was complaining of worsening leg pain. REVIEW OF SYSTEMS: Unable to obtain 2/2 medical condition PHYSICAL EXAMINATION Vital Signs Temperature 96.2 F L 02/11/20 00:30 Pulse Rate 82 02/11/20 05:57 Respiratory Rate 19 02/11/20 05:57 Blood Pressure 119/62 02/11/20 05:57 O2 Sat by Pulse Oximetry (%) 98 02/11/20 05:57 Active Medications Generic Name Dose Route Start Last Admin Trade Name Freq PRN Reason Stop Dose Admin Diltiazem HCl 125 mg/ Sodium 125 mls @ 5 mls/hr 02/10/20 20:45 02/10/20 21:30 Chloride IVPB 5 mg/hr TITR KEVAN 5 mls/hr Administration Protocol 5 MG/HR PE GENERAL: Lethargic, arousable to voice HEAD: No signs of trauma, normocephalic, atraumatic EYES: PERRLA, EOMI, sclera anicteric, conjunctiva clear ENT: nares patent, oropharynx clear erythema, exudates. Moist mucosa LUNGS: Diminished breath sound at bases HEART: Irregularly irregular rhythm; regular rate, normal S1 and S2, no murmurs appreciated ABDOMEN: Soft, no grimace to palpation, normoactive bowel sounds EXTREMITIES : Moves all extremities independently, +pitting edema (left leg > right leg) NEUROLOGICAL: Awake SKIN: Cool, Dry, normal turgor, mulitple areas of ecchimosis noted throughout ASSESSMENT/PLAN: The pt is an 89F from home w/ a history of dementia, Afib (Eliquis), DM, frequent UTIs, HTM who presented from home for evaluation of AMS who was found to be in a-fib w/ RVR as well as spesis 2/2 UTI. Pt started on abx and give IVF Ditiazem gtt started overnight with subsequent improved HR to 70s. Pt has been on Diltiazem 5mg/hr w/o need to up-titrate Pt can likely be transitioned to PO meds Dispo: Pt does not require ICU level of care at this time Visit type - Medication Review Med list reviewed for High Risk Meds patients 65 and older: Yes - Emergency Visit Emergency Visit: Yes ED Registration Date: 02/10/20 Care time: The patient presented to the Emergency Department on the above date and was hospitalized for further evaluation of their emergent condition. - New Patient This patient is new to me today: Yes Date on this admission: 02/11/20 - Critical Care Critical Care patient: Yes Total Critical Care Time (in minutes): 36 Critical Care Statement: The care of this patient involved high complexity decision making to prevent further life threatening deterioration of the patient's condition and/or to evaluate & treat vital organ system(s) failure or risk of failure. ATTENDING PHYSICIAN STATEMENT I saw and evaluated the patient. I reviewed the resident's note and discussed the case with the resident. I agree with the resident's findings and plan as documented. SUBJECTIVE: OBJECTIVE: ASSESSMENT AND PLAN:
--- NOTE | 2020-02-11 09:50 | HP ---
CHIEF COMPLAINT: altered mental status PCP: Dr. Saul Mcguire HISTORY OF PRESENT ILLNESS: History provided with assistance of son Kb March ([phone]) Patient is an 89 year old female with history of dementia, Afib (on Eliquis), hypertension, hyperlipidemia, coronary artery disease, diabetes mellitus, prior UTI (E.coli, Kelbsiella) presents at behest of her son due to altered mental status. He endorses patient has been increasingly confused with worsening weakness over the past day, and diminished appetite for the past week. OF note, patient was diagnosed with pneumonia and UTI two weeks ago. The son reports improvement of her condition since that infection and believes her condition has acutely worsened prompting ED presentation. Denies fevers, chills, nausea, vomiting, dysuria, hematuria. In the field she was noted to be tachycardic to the 140s, hypotensive to the 90s/ 70s, received 14mg Diltiazem. In ED she was initiated on Diltiazem drip and Digoxin for rate control, with cardiology recommendations. Received approx 750cc IV fluids. ER course was notable for: (1) Tachycardia to the 150s, BP 80s/ 70s (2) BNP 93324, Lactic 3.2 --> 2.4. Troponin 0.06 -> 0.03 (3) Chest radiograph, CT head Recent Travel: denies PAST MEDICAL HISTORY: dementia, Afib (on Eliquis), hypertension, hyperlipidemia, coronary artery disease, diabetes mellitus, prior UTI PAST SURGICAL HISTORY: left hip replacement FAMILY HISTORY: Father: CVA Mother: breast caner Social History: Reportedly lives alone in apartment; son lives in apartment beneath her and assists with activities of daily living. 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 Smoking: denies Alcohol: denies Drugs: denies Allergies No Known Allergies Allergy (Verified 03/27/18 15:30) HOME MEDICATIONS: Home Medications Medication Instructions Recorded Apixaban [Eliquis -] 5 mg PO BID 05/13/17 Diltiazem HCl [Cartia Xt] 180 mg PO BID 05/13/17 Metoprolol Succinate [Toprol XL -] 100 mg PO BID 05/13/17 metFORMIN HCL [Glucophage -] 850 mg PO BID 05/13/17 REVIEW OF SYSTEMS As per HPI. Unable to obtain further given patient's clinical condition. PHYSICAL EXAMINATION Vital Signs - 24 hr 02/10/20 02/10/20 02/10/20 17:00 17:04 18:40 Temperature 97.4 F L 97.4 F L Pulse Rate 144 H Pulse Rate [ 149 H Apical] Respiratory 25 H Rate Blood Pressure 85/00 L Blood Pressure 103/76 [Right Arm] O2 Sat by Pulse Oximetry (%) 02/10/20 02/10/20 02/10/20 19:21 21:50 22:00 Temperature Pulse Rate Pulse Rate [ 146 H 114 H 109 H Apical] Respiratory 19 22 H Rate Blood Pressure Blood Pressure 85/69 L 107/87 109/65 [Right Arm] O2 Sat by Pulse 98 96 Oximetry (%) 02/10/20 02/11/20 02/11/20 23:00 00:00 00:30 Temperature 96.2 F L Pulse Rate Pulse Rate [ 101 H 97 H 94 H Apical] Respiratory 20 20 19 Rate Blood Pressure Blood Pressure 105/61 116/61 107/77 [Right Arm] O2 Sat by Pulse 97 100 100 Oximetry (%) 02/11/20 05:57 Temperature Pulse Rate Pulse Rate [ 82 Apical] Respiratory 19 Rate Blood Pressure Blood Pressure 119/62 [Right Arm] O2 Sat by Pulse 98 Oximetry (%) GENERAL: Lethargic, arousable to voice, in no acute distress. HEAD: Normal with no signs of trauma. EYES: Pupils equal, round and reactive to light, extraocular movements intact, conjunctiva clear. EARS, NOSE, THROAT: Dry mucous membranes. NECK: Supple without lymphadenopathy, or JVD. LUNGS: Breath sounds equal, clear to auscultation bilaterally. No wheezes, and no crackles. No accessory muscle use. HEART: Irregular rate. Normal S1 and S2 without murmur. ABDOMEN: Soft, not distended, nontender to palpation. Normoactive bowel sounds. No guarding, no rebound tenderness, MUSCULOSKELETAL: Moving all four extremities equally. EXTREMITIES: 2+ pulses bilaterally. Left lower extremity 1+ edema, Right lower extremity trace edema. NEUROLOGICAL: Lethargic. Unaable to cooperate with exam. SKIN: Numerous excoriations noted along abdomen, bilateral legs. Stage I sacral wound noted with erythema. Laboratory Results - last 24 hr 02/10/20 02/10/20 02/10/20 17:42 18:00 18:28 WBC RBC Hgb Hct MCV MCH MCHC RDW Plt Count MPV Absolute Neuts (auto) Neutrophils % Lymphocytes % Monocytes % Eosinophils % Basophils % Nucleated RBC % Anisocytosis Microcytosis Macrocytosis PT with INR 19.90 H INR 1.68 H PTT (Actin FS) 30.0 VBG pH 7.308 L POC VBG pCO2 49.4 POC VBG pO2 26.4 L VBG HCO3 24.2 VBG O2 Sat (Thanh) 42.8 L VBG Base Excess -2.6 L Sodium Potassium Chloride Carbon Dioxide Anion Gap BUN Creatinine Est GFR (CKD-EPI)AfAm Est GFR (CKD-EPI)NonAf POC Glucometer 93 Random Glucose Lactic Acid Calcium Total Bilirubin AST ALT Alkaline Phosphatase Troponin I B-Natriuretic Peptide Total Protein Albumin Urine Color Urine Appearance Urine pH Ur Specific [place] Urine Protein Urine Glucose (UA) Urine Ketones Urine Blood Urine Nitrite Urine Bilirubin Urine Urobilinogen Ur Leukocyte Esterase Urine WBC (Auto) Urine RBC (Auto) Urine Casts (Auto) U Pathogenic Cast Auto U Epithel Cells (Auto) Urine Bacteria (Auto) Urine Yeast (Auto) 02/10/20 02/10/20 02/10/20 18:28 18:28 18:28 WBC 10.9 H RBC 4.92 Hgb 13.1 Hct 39.9 MCV 81.1 MCH 26.7 MCHC 32.9 RDW 23.0 H Plt Count 307 MPV 7.1 L Absolute Neuts (auto) 9.6 H Neutrophils % 88.1 H D Lymphocytes % 6.4 L D Monocytes % 5.4 Eosinophils % 0.0 D Basophils % 0.1 Nucleated RBC % 0 Anisocytosis 1+ Microcytosis 1+ Macrocytosis 1+ PT with INR INR PTT (Actin FS) VBG pH POC VBG pCO2 POC VBG pO2 VBG HCO3 VBG O2 Sat (Thanh) VBG Base Excess Sodium 139 Potassium 3.7 Chloride 105 Carbon Dioxide 24 Anion Gap 10 BUN 28.8 H Creatinine 1.0 Est GFR (CKD-EPI)AfAm 57.84 Est GFR (CKD-EPI)NonAf 49.91 POC Glucometer Random Glucose 129 H Lactic Acid Calcium 8.5 Total Bilirubin 1.4 H AST 11 L ALT 14 Alkaline Phosphatase 86 Troponin I 0.06 H B-Natriuretic Peptide 60152.5 H Total Protein 5.5 L Albumin 2.0 L Urine Color Dk yellow Urine Appearance Turbid Urine pH 5.0 D Ur Specific [place] 1.017 Urine Protein 2+ H Urine Glucose (UA) Negative Urine Ketones Trace H Urine Blood 3+ H Urine Nitrite Negative Urine Bilirubin 2+ H Urine Urobilinogen 1.0 Ur Leukocyte Esterase 2+ H Urine WBC (Auto) 7817 Urine RBC (Auto) 375.8 Urine Casts (Auto) 53 U Pathogenic Cast Auto 6 U Epithel Cells (Auto) >36 Urine Bacteria (Auto) >9,000 Urine Yeast (Auto) None 02/10/20 02/10/20 02/11/20 18:28 22:02 04:45 WBC RBC Hgb Hct MCV MCH MCHC RDW Plt Count MPV Absolute Neuts (auto) Neutrophils % Lymphocytes % Monocytes % Eosinophils % Basophils % Nucleated RBC % Anisocytosis Microcytosis Macrocytosis PT with INR INR PTT (Actin FS) VBG pH POC VBG pCO2 POC VBG pO2 VBG HCO3 VBG O2 Sat (Thanh) VBG Base Excess Sodium Potassium Chloride Carbon Dioxide Anion Gap BUN Creatinine Est GFR (CKD-EPI)AfAm Est GFR (CKD-EPI)NonAf POC Glucometer Random Glucose Lactic Acid 3.2 H* 5.0 H* 2.4 H* Calcium Total Bilirubin AST ALT Alkaline Phosphatase Troponin I B-Natriuretic Peptide Total Protein Albumin Urine Color Urine Appearance Urine pH Ur Specific [place] Urine Protein Urine Glucose (UA) Urine Ketones Urine Blood Urine Nitrite Urine Bilirubin Urine Urobilinogen Ur Leukocyte Esterase Urine WBC (Auto) Urine RBC (Auto) Urine Casts (Auto) U Pathogenic Cast Auto U Epithel Cells (Auto) Urine Bacteria (Auto) Urine Yeast (Auto) 02/11/20 04:45 WBC RBC Hgb Hct MCV MCH MCHC RDW Plt Count MPV Absolute Neuts (auto) Neutrophils % Lymphocytes % Monocytes % Eosinophils % Basophils % Nucleated RBC % Anisocytosis Microcytosis Macrocytosis PT with INR INR PTT (Actin FS) VBG pH POC VBG pCO2 POC VBG pO2 VBG HCO3 VBG O2 Sat (Thanh) VBG Base Excess Sodium Potassium Chloride Carbon Dioxide Anion Gap BUN Creatinine Est GFR (CKD-EPI)AfAm Est GFR (CKD-EPI)NonAf POC Glucometer Random Glucose Lactic Acid Calcium Total Bilirubin AST ALT Alkaline Phosphatase Troponin I 0.03 B-Natriuretic Peptide Total Protein Albumin Urine Color Urine Appearance Urine pH Ur Specific [place] Urine Protein Urine Glucose (UA) Urine Ketones Urine Blood Urine Nitrite Urine Bilirubin Urine Urobilinogen Ur Leukocyte Esterase Urine WBC (Auto) Urine RBC (Auto) Urine Casts (Auto) U Pathogenic Cast Auto U Epithel Cells (Auto) Urine Bacteria (Auto) Urine Yeast (Auto) ASSESSMENT/PLAN: Patient is an 89 year old female with history of dementia, Afib (on Eliquis), hypertension, hyperlipidemia, coronary artery disease, diabetes mellitus, prior UTI (E.coli, Kelbsiella) presents at behest of her son due to altered mental status. Sepsis secondary to acute complicated UTI vs pneumonia -WBC 10.9, tachycardic (however noted history of Afib), hypothermic to 96.2F. -Chest radiograph -Urinalysis with turbid yellow urine, positive ketones, 3+ blood, 2+ leukocyte esterase, >9000 bacteria. Over 36 epithelial cells noted. -Received Zosyn, Vancomycin in ED. Will continue Vancomycin, Zosyn for now -Follow blood, and urine cultures. -Infectious disease consult (Dr. Escalante) Acute metabolic encephalopathy -Likely due to sepsis seconadry to acute complicated UTI -CT head does not reveal acute pathology -Gentle hydration -NPO due to concern for aspiration, until mental status improves. Afib with RVR -EKG -CHADSVASC score 5- requires anticoagulaiton, however given concern for aspiration, will initiate Heparin drip. Reinstate home eliquis 2.5mg PO BID once safely tolerating oral intake. -Cardiology recommendations (Dr. Monteiro) appreciated. Continue Diltiazem 180mg PO BID once able to safely tolerate oral intake. In meantime, will continue Diltiazem 5mg IV push for heart rate greater than 120beats per minute; hold if systolic BP less than 90 mmHg. -Cardiac telemetry monitoring -Cardiac transthoracic ECHO History of hypertension, hyperlipidemia -Continue Diltiazem -Holding home Metoprolol in setting of borderline blood pressures. Diabetes mellitus -HgbA1c -Fingerstick blood glucose, insulin sliding scale Q8H while NPO FEN -Gentle hydration with IV normal saline at 42mL/ hour x1 liter -Follow BMP -NPO for now Prophylaxis -Heparin drip Disposition -Admit to Telemetry Family Medical History Family History: As Documented Visit type - Medication Review Med list reviewed for High Risk Meds patients 65 and older: Yes - Emergency Visit Emergency Visit: Yes ED Registration Date: 02/10/20 Care time: The patient presented to the Emergency Department on the above date and was hospitalized for further evaluation of their emergent condition. - New Patient This patient is new to me today: Yes Date on this admission: 02/11/20 - Critical Care Critical Care patient: No ATTENDING PHYSICIAN STATEMENT I saw and evaluated the patient. I reviewed the resident's note and discussed the case with the resident. I agree with the resident's findings and plan as documented. SUBJECTIVE: OBJECTIVE: ASSESSMENT AND PLAN:
--- NOTE | 2020-02-11 11:28 | CON.CARD ---
Cardiology Consult (text) - Consultation Consultation Note: Chief Complaint: ams History of Present Illness: 89 yo female here with ams. Hx from charts, pt with dementia. Family felt she was more lethargic than usual so brought to ER. In ER with afib rvr and hy potension. Given iv dig and started dilt gtt, hr improved now. PMH: afib HTN HPL no cigs no FH of MIs - Past Medical History Cardio/Vascular: Yes: CAD, HTN, Hyperlipdemia Endocrine: Yes: Diabetes Mellitus - Past Surgical History Past Surgical History: Yes: None - Alcohol/Substance Use Hx Alcohol Use: No History of Substance Use: reports: None - Smoking History Smoking history: Never smoked Have you smoked in the past 12 months: No - Social History ADL: Independent History of Recent Travel: No Home Medications - Allergies Allergies/Adverse Reactions: Allergies Allergy/AdvReac Type Severity Reaction Status Date / Time No Known Allergies Allergy Verified 03/27/18 15:30 Ambulatory Orders Apixaban [Eliquis -] 2.5 mg PO BID 05/13/17 Diltiazem HCl [Cartia Xt] 180 mg PO BID 05/13/17 Metoprolol Succinate [Toprol XL -] 100 mg PO BID 05/13/17 metFORMIN HCL [Glucophage -] 850 mg PO BID 05/13/17 Paroxetine HCl 10 mg PO DAILY 02/11/20 Family Disease History - Family Disease History Family Disease History: Other: Father (cva), Son (cva,htn) Review of Systems n/a 2/2 ams Vital Signs Period Temp Pulse Resp BP Sys/Lazaro Pulse Ox Last 24 Hr 96.2 F-97.4 F 82-149 19-25 85-119/00-87 96-100 Constitutional: Yes: Well Nourished, No Distress Eyes: No: Sclera Icterus Respiratory: Yes: CTA Bilaterally. No: Accessory Muscle Use, Rales Gastrointestinal: Yes: Normal Bowel Sounds. No: Distention, Hepatomegaly, Palpable Mass, Tenderness Cardiovascular: Yes: Pulse Irregular JVD: No Carotid Bruit: No PMI: Non-Displaced Heart Sounds: Yes: S1, S2. No: Gallop Murmur: No: Systolic Murmur, Diastolic Murmur Extremities: No: Cold, Cyanosis Edema: No Peripheral Pulses: 2+ Left Carotid, 2+ Right Carotid, 2+ Left Doralis Pedis, 2+ Right Dorsalis Pedis Integumentary: No: Jaundice diaphoresis Neurological: lethargic, confused Psychiatric: No: Agitated - Other Data Labs, Other Data: Laboratory Last Values WBC 10.9 K/mm3 (4.0-10.0) H 02/10/20 18: RBC 4.92 M/mm3 (3.60-5.2) 02/10/20 18: Hgb 13.1 GM/dL (10.7-15.3) 02/10/20 18: Hct 39.9 % (32.4-45.2) 02/10/20 18: MCV 81.1 fl (80-96) 02/10/20 18: MCH 26.7 pg (25.7-33.7) 02/10/20 18: MCHC 32.9 g/dl (32.0-36.0) 02/10/20 18: RDW 23.0 % (11.6-15.6) H 02/10/20 18: Plt Count 307 K/MM3 (134-434) 02/10/20 18: MPV 7.1 fl (7.5-11.1) L 02/10/20 18: Absolute Neuts (auto) 9.6 K/mm3 (1.5-8.0) H 02/10/20 18: Neutrophils % 88.1 % (42.8-82.8) H D 02/10/20 18: Lymphocytes % 6.4 % (8-40) L D 02/10/20 18: Monocytes % 5.4 % (3.8-10.2) 02/10/20 18: Eosinophils % 0.0 % (0-4.5) D 02/10/20 18: Basophils % 0.1 % (0-2.0) 02/10/20 18: Nucleated RBC % 0 % (0-0) 02/10/20 18: Anisocytosis 1+ 02/10/20 18:28 Microcytosis 1+ 02/10/20 18:28 Macrocytosis 1+ 02/10/20 18: PT with INR 19.90 SEC (9.7-13.0) H 02/10/20 18:28 INR 1.68 (0.83-1.09) H 02/10/20 18:28 PTT (Actin FS) 30.0 SECONDS (25.2-36.5) 02/10/20 18:28 VBG pH 7.308 (7.310-7.410) L 02/10/20 18:00 POC VBG pCO2 49.4 mmHg (38-52) 02/10/20 18:00 POC VBG pO2 26.4 mmHg (28-48) L 02/10/20 18:00 VBG HCO3 24.2 mmol/L (23-29) 02/10/20 18:00 VBG O2 Sat (Thanh) 42.8 % (70-80) L 02/10/20 18:00 VBG Base Excess -2.6 mmol/L (-2-2) L 02/10/20 18:00 Sodium 139 mmol/L (136-145) 02/10/20 18:28 Potassium 3.7 mmol/L (3.5-5.1) 02/10/20 18:28 Chloride 105 mmol/L (98-107) 02/10/20 18:28 Carbon Dioxide 24 mmol/L (21-32) 02/10/20 18:28 Anion Gap 10 MMOL/L (8-16) 02/10/20 18:28 BUN 28.8 mg/dL (7-18) H 02/10/20 18:28 Creatinine 1.0 mg/dL (0.55-1.3) 02/10/20 18:28 Est GFR (CKD-EPI)AfAm 57.84 02/10/20 18:28 Est GFR (CKD-EPI)NonAf 49.91 02/10/20 18:28 POC Glucometer 93 UNITS (80-120) 02/10/20 17:42 Random Glucose 129 mg/dL (74-106) H 02/10/20 18:28 Lactic Acid 2.4 mmol/L (0.4-2.0) H* 02/11/20 04:45 Calcium 8.5 mg/dL (8.5-10.1) 02/10/20 18:28 Total Bilirubin 1.4 mg/dL (0.2-1) H 02/10/20 18:28 AST 11 U/L (15-37) L 02/10/20 18:28 ALT 14 U/L (13-61) 02/10/20 18: Alkaline Phosphatase 86 U/L (45-117) 02/10/20 18: Troponin I 0.03 ng/ml (0.00-0.05) 02/11/20 04:45 B-Natriuretic Peptide 09843.5 pg/ml (5-450) H 02/10/20 18: Total Protein 5.5 g/dl (6.4-8.2) L 02/10/20 18: Albumin 2.0 g/dl (3.4-5.0) L 02/10/20 18: Urine Color Dk yellow 02/10/20 18: Urine Appearance Turbid 02/10/20: Urine pH 5.0 (5.0-8.0) D 02/10/20 18: Ur Specific [place] 1.017 (1.010-1.035) 02/10/20 18: Urine Protein 2+ (NEGATIVE) H 02/10/20 18: Urine Glucose (UA) Negative (NEGATIVE) 02/10/20 18: Urine Ketones Trace (NEGATIVE) H 02/10/20 18: Urine Blood 3+ (NEGATIVE) H 02/10/20: Urine Nitrite Negative (NEGATIVE) 02/10/20: Urine Bilirubin 2+ (NEGATIVE) H 02/10/20: Urine Urobilinogen 1.0 mg/dL (0.2-1.0) 02/10/20 18: Ur Leukocyte Esterase 2+ (NEGATIVE) H 02/10/20 18: Urine WBC (Auto) 7817 /uL (0-25.8) 02/10/20 18: Urine RBC (Auto) 375.8 /uL (0-23.9) 02/10/20 18: Urine Casts (Auto) 53 /uL (0-3.1) 02/10/20: U Pathogenic Cast Auto 6 /lpf (NEGATIVE) 02/10/20 18: U Epithel Cells (Auto) >36 /uL (0-25.1) 02/10/20 18: Urine Bacteria (Auto) >9,000 /uL (0-1359) 02/10/20 18: Urine Yeast (Auto) None (NEGATIVE) 02/10/20 18:28 ekg: afib, rvr, rbbb, lat st depressions, similar to priors CXR: no chf tele: afib, rate 70s currently Echo here 02/2016: nl lv size, mod dec lvef, global hk, nl rv, mild-mod mr, mod tr, rvsp 50-60,trace-mild ar, mild pr Echo 07/22: Nl LV/RV. No significant valvular abnormalities. est cct 35 mins Assessment/Plan paroxysmal Afib, rapid HR: -at home was on dilt 180 bid, toprol 100 bid, for rate control. Here now with rvr, possibly from sepsis. After iv dig and dilt gtt hr has improved and bp improved as well. Would resume home dilt 180 bid now that bp improved and titrate off gtt. Monitor on tele -chadsvasc is 5 (no cva/tia hx) so has indication for ac, was on eliquis at home, resume at low dose 2.5 bid (for age and wt) chronic syst chf: -Nl EF 07/2015 --> 02/2016 (EF mod depressed). 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
[2020-02-11] MEDS ORDERED: HEPARIN NA (PORCINE) 5,000 UNITS/ML 1ML VIAL IVPUSH PRN ×2 (12:08)
[2020-02-11] MEDS ORDERED: dilTIAZem HCL 50 MG/10 ML - 10 ML VIAL IVPUSH PRN (12:09)
[2020-02-11] MEDS ORDERED: SODIUM CHLORIDE 1,000 ML IV SCH (12:15)
[2020-02-11] MEDS ORDERED: PIPERACILLIN/TAZOB 3.375 GM 3.375 GM in DEXTROSE 5%-WATER - 50 ML IVPB SCH ×2 (12:15→12:30)
--- NOTE | 2020-02-11 13:01 | CON.ID ---
Consult - Past Medical History Cardio/Vascular: Yes: AFIB, CAD, HTN, Hyperlipdemia Endocrine: Yes: Diabetes Mellitus - Past Surgical History Past Surgical History: Yes: None - Alcohol/Substance Use Hx Alcohol Use: No History of Substance Use: reports: None - Smoking History Smoking history: Never smoked Have you smoked in the past 12 months: No - Social History ADL: Independent History of Recent Travel: No Home Medications - Allergies Allergies/Adverse Reactions: Allergies Allergy/AdvReac Type Severity Reaction Status Date / Time No Known Allergies Allergy Verified 03/27/18 15:30 - Home Medications Home Medications: Ambulatory Orders Apixaban [Eliquis -] 2.5 mg PO BID 05/13/17 Diltiazem HCl [Cartia Xt] 180 mg PO BID 05/13/17 Metoprolol Succinate [Toprol XL -] 100 mg PO BID 05/13/17 metFORMIN HCL [Glucophage -] 850 mg PO BID 05/13/17 Paroxetine HCl 10 mg PO DAILY 02/11/20 Physical Exam Vital Signs: Vital Signs Temperature 96.2 F L 02/11/20 00:30 Pulse Rate 85 02/11/20 11:00 Respiratory Rate 20 02/11/20 11:00 Blood Pressure 105/72 02/11/20 11:00 O2 Sat by Pulse Oximetry (%) 96 02/11/20 11:00 Labs: CBC, BMP 02/10/20 18:28 02/10/20 18:28
[2020-02-11] MEDS ORDERED: PIPERACILLIN/TAZOB 3.375 GM 3.375 GM/50 ML BAG IVPB ONE (13:14)
[2020-02-11] MEDS ORDERED: HEPARIN INFUSION - 25,000 UNITS/500 ML INFUS.BAG IVPB ONE (13:14)
[2020-02-11] MEDS: HEPARIN INFUSION - 25,000 UNITS/500 ML INFUS.BAG IVPB SCH (13:17)
--- NOTE | 2020-02-11 14:48 | PN ---
Teaching Attending Note Name of Resident: Marquez Hernandes ATTENDING PHYSICIAN STATEMENT I saw and evaluated the patient. I reviewed the resident's note and discussed the case with the resident. I agree with the resident's findings and plan as documented. SUBJECTIVE: Patient seen and examined in the ER. 89 F, dementia, Afib (on Eliquis), DM, and frequent UTIs. Admitted via the ER due to AMS x 1 day. Per the record, the son was concerned due to worsening confusion, Patient noted to be in Rapid AFib and was started on IV Cardizem. She is awake and alert and responsive. She denies CP or SOB. Intake & Output 02/08/20 02/09/20 02/10/20 02/11/20 23:59 23:59 23:59 23:59 Intake Total 800 Balance 800 Weight 110 lb 3.698 oz Last Vital Signs Temp Pulse Resp BP Pulse Ox 96.2 F L 85 20 105/72 96 02/11/20 00:30 02/11/20 11:00 02/11/20 11:00 02/11/20 11:00 02/11/20 11:00 Active Medications Diltiazem HCl (Cardizem Injection -) 5 mg IVPUSH Q4H PRN PRN Reason: TACHYCARDIA Heparin Sodium (Porcine) (Heparin -) 1,000 unit IVPUSH PRN PRN PRN Reason: Heparin Heparin Sodium (Porcine) (Heparin -) 5,000 unit IVPUSH PRN PRN PRN Reason: Heparin Heparin Sodium/Dextrose (Heparin Infusion -) 25,000 units in 500 mls @ 16 mls/hr IVPB TITR KEVAN; Protocol Last Admin: 02/11/20 13:17 Dose: 800 units/hr, 16 mls/hr Documented by: Sodium Chloride (Normal Saline -) 1,000 mls @ 42 mls/hr IV ASDIR KEVAN Stop: 02/12/20 12:04 Last Admin: 02/11/20 13:17 Dose: 42 mls/hr Documented by: Piperacillin Sod/Tazobactam (Sod 2.25 gm/ Dextrose) 50 mls @ 100 mls/hr IVPB Q8H-IV KEVAN; Protocol GENERAL: Awake and alert, Responsive HEAD: No signs of trauma, normocephalic, atraumatic EYES: sclera anicteric, conjunctiva clear ENT: Moist mucosa LUNGS: Bibasilar rales / rhonchi HEART: Irregularly irregular rhythm; regular rate, normal S1 and S2, no murmurs appreciated ABDOMEN: Soft, (+) BS EXTREMITIES : (+) edema (left leg > right leg) NEUROLOGICAL: Awake and alert, non-focal SKIN: Cool, Dry, normal turgor, mulitple areas of ecchimosis noted throughout Laboratory Results - last 24 hr 02/10/20 02/10/20 02/10/20 17:42 18:00 18:28 WBC RBC Hgb Hct MCV MCH MCHC RDW Plt Count MPV Absolute Neuts (auto) Neutrophils % Lymphocytes % Monocytes % Eosinophils % Basophils % Nucleated RBC % Anisocytosis Microcytosis Macrocytosis PT with INR 19.90 H INR 1.68 H PTT (Actin FS) 30.0 VBG pH 7.308 L POC VBG pCO2 49.4 POC VBG pO2 26.4 L VBG HCO3 24.2 VBG O2 Sat (Thanh) 42.8 L VBG Base Excess -2.6 L Sodium Potassium Chloride Carbon Dioxide Anion Gap BUN Creatinine Est GFR (CKD-EPI)AfAm Est GFR (CKD-EPI)NonAf POC Glucometer 93 Random Glucose Lactic Acid Calcium Total Bilirubin AST ALT Alkaline Phosphatase Troponin I B-Natriuretic Peptide Total Protein Albumin Urine Color Urine Appearance Urine pH Ur Specific [place] Urine Protein Urine Glucose (UA) Urine Ketones Urine Blood Urine Nitrite Urine Bilirubin Urine Urobilinogen Ur Leukocyte Esterase Urine WBC (Auto) Urine RBC (Auto) Urine Casts (Auto) U Pathogenic Cast Auto U Epithel Cells (Auto) Urine Bacteria (Auto) Urine Yeast (Auto) 02/10/20 02/10/20 02/10/20 18:28 18:28 18:28 WBC 10.9 H RBC 4.92 Hgb 13.1 Hct 39.9 MCV 81.1 MCH 26.7 MCHC 32.9 RDW 23.0 H Plt Count 307 MPV 7.1 L Absolute Neuts (auto) 9.6 H Neutrophils % 88.1 H D Lymphocytes % 6.4 L D Monocytes % 5.4 Eosinophils % 0.0 D Basophils % 0.1 Nucleated RBC % 0 Anisocytosis 1+ Microcytosis 1+ Macrocytosis 1+ PT with INR INR PTT (Actin FS) VBG pH POC VBG pCO2 POC VBG pO2 VBG HCO3 VBG O2 Sat (Thanh) VBG Base Excess Sodium 139 Potassium 3.7 Chloride 105 Carbon Dioxide 24 Anion Gap 10 BUN 28.8 H Creatinine 1.0 Est GFR (CKD-EPI)AfAm 57.84 Est GFR (CKD-EPI)NonAf 49.91 POC Glucometer Random Glucose 129 H Lactic Acid Calcium 8.5 Total Bilirubin 1.4 H AST 11 L ALT 14 Alkaline Phosphatase 86 Troponin I 0.06 H B-Natriuretic Peptide 91725.5 H Total Protein 5.5 L Albumin 2.0 L Urine Color Dk yellow Urine Appearance Turbid Urine pH 5.0 D Ur Specific [place] 1.017 Urine Protein 2+ H Urine Glucose (UA) Negative Urine Ketones Trace H Urine Blood 3+ H Urine Nitrite Negative Urine Bilirubin 2+ H Urine Urobilinogen 1.0 Ur Leukocyte Esterase 2+ H Urine WBC (Auto) 7817 Urine RBC (Auto) 375.8 Urine Casts (Auto) 53 U Pathogenic Cast Auto 6 U Epithel Cells (Auto) >36 Urine Bacteria (Auto) >9,000 Urine Yeast (Auto) None 02/10/20 02/10/20 02/11/20 18:28 22:02 04:45 WBC RBC Hgb Hct MCV MCH MCHC RDW Plt Count MPV Absolute Neuts (auto) Neutrophils % Lymphocytes % Monocytes % Eosinophils % Basophils % Nucleated RBC % Anisocytosis Microcytosis Macrocytosis PT with INR INR PTT (Actin FS) VBG pH POC VBG pCO2 POC VBG pO2 VBG HCO3 VBG O2 Sat (Htanh) VBG Base Excess Sodium Potassium Chloride Carbon Dioxide Anion Gap BUN Creatinine Est GFR (CKD-EPI)AfAm Est GFR (CKD-EPI)NonAf POC Glucometer Random Glucose Lactic Acid 3.2 H* 5.0 H* 2.4 H* Calcium Total Bilirubin AST ALT Alkaline Phosphatase Troponin I B-Natriuretic Peptide Total Protein Albumin Urine Color Urine Appearance Urine pH Ur Specific [place] Urine Protein Urine Glucose (UA) Urine Ketones Urine Blood Urine Nitrite Urine Bilirubin Urine Urobilinogen Ur Leukocyte Esterase Urine WBC (Auto) Urine RBC (Auto) Urine Casts (Auto) U Pathogenic Cast Auto U Epithel Cells (Auto) Urine Bacteria (Auto) Urine Yeast (Auto) 02/11/20 04:45 WBC RBC Hgb Hct MCV MCH MCHC RDW Plt Count MPV Absolute Neuts (auto) Neutrophils % Lymphocytes % Monocytes % Eosinophils % Basophils % Nucleated RBC % Anisocytosis Microcytosis Macrocytosis PT with INR INR PTT (Actin FS) VBG pH POC VBG pCO2 POC VBG pO2 VBG HCO3 VBG O2 Sat (Thanh) VBG Base Excess Sodium Potassium Chloride Carbon Dioxide Anion Gap BUN Creatinine Est GFR (CKD-EPI)AfAm Est GFR (CKD-EPI)NonAf POC Glucometer Random Glucose Lactic Acid Calcium Total Bilirubin AST ALT Alkaline Phosphatase Troponin I 0.03 B-Natriuretic Peptide Total Protein Albumin Urine Color Urine Appearance Urine pH Ur Specific [place] Urine Protein Urine Glucose (UA) Urine Ketones Urine Blood Urine Nitrite Urine Bilirubin Urine Urobilinogen Ur Leukocyte Esterase Urine WBC (Auto) Urine RBC (Auto) Urine Casts (Auto) U Pathogenic Cast Auto U Epithel Cells (Auto) Urine Bacteria (Auto) Urine Yeast (Auto) ASSESSMENT/PLAN: AFib with RVR R/O Sepsis due to a source : hemodynamics have been stable Dementia DM History of frequent UTIs Pulmonary vascular congestion on CXR : low clinical suspicion for PNA ABX coverage per ID Rates are better controlled and she is off IV Cardizem at this point Supplemental O2 as needed Follow cultures Titrate PO rate meds Lasix as tolerated Aspiration precautions Continue AC Does not require ICU monitoring at this time; appropriate to monitor on the Cardiac telemetry unit. Please call for any change in condition or questions. Thank you. Dr Sullivan
--- NOTE | 2020-02-11 15:21 | CONSULT ---
Admitting History and Physical - Admission History of Present Illness: Patient is an 89 year old female with history of dementia, Afib , hypertension, hyperlipidemia, coronary artery disease, diabetes mellitus, prior UTI admitted due to altered mental status. AFib R/O Sepsis due to a source Dementia DM History of frequent UTIs Pulmonary/critical care imp-Pulmonary vascular congestion on CXR : low clinical suspicion for PNA Selected Entries 02/11/20 02/11/20 02/11/20 00:00 00:30 05:57 Temperature 96.2 F L Pulse Rate [ 97 H 94 H 82 Apical] Blood Pressure 116/61 107/77 119/62 [Right Arm] 02/11/20 11:00 Temperature Pulse Rate [ 85 Apical] Blood Pressure 105/72 [Right Arm] Laboratory Tests 02/10/20 02/10/20 02/10/20 15:00 18:28 18:28 WBC 10.9 H BUN 28.8 H Lactic Acid COVID-19 (ANEESH) Pending 02/11/20 04:45 WBC BUN Lactic Acid 2.4 H* COVID-19 (ANEESH) Pt seen in ED, with granddaughter and ED nurse present. Pt was completely Non verbal/non vocal, after attempting to elicit verbalizations of any type for over 20 minutes. Pt's granddaughter said "she does this sometimes" but can definitely talk and communicate. Dr Bynum made aware- He said she spoke a few words,a short sentence earlier. Pt moving UE's. Smiled responsively and shook head yes to "Do you want to go home". I could not elicit y/n, social speech, flavors of ice cream, her name, etc. History Source: Family Member Limitations to Obtaining History: Clinical Condition (Non verbal, non vocal for me) - Past Medical History Cardiovascular: Yes: AFIB, CAD, HTN, Hyperlipdemia Endocrine: Yes: Diabetes Mellitus - Past Surgical History Past Surgical History: Yes: None - Smoking History Smoking history: Never smoked Have you smoked in the past 12 months: No - Alcohol/Substance Use Hx Alcohol Use: No History of Substance Use: reports: None - Social History ADL: Independent History of Recent Travel: No History - Admission Reason For Visit: ALTERED MENTAL STATUS - Diagnostics X-ray: Report Reviewed CT Scan: Report Reviewed - General Mental Status: Alert and Oriented, Confused, Flat Affect Attention: Intact Head/Neck Control: Fair - Hearing Hearing: Functional Speech Evaluation - Communication Primary Language: ITALIAN Secondary Language: MAC[place]ONIAN Communication: Yes: Non-Communicable (for me) Oral Expression Ability: Yes: Non-Verbal, Non-Vocal - Speech Production Apraxia: Yes - Language/Auditory Comprehension Observation: Able to respond to yes/no queries: Yes (head shake at times) - Language/Verbal Expression Functional Communication Status: Yes: Severely Impaired - Swallow Evaluation/Bedside Assessment Current Nutritional Intake: NPO Oral Secretions: Yes: WFL Dentition: Yes: Edentulous Coughing/Throat Clear: Yes (not immediately, but delayed cough throat clearing after water) Recommendations - Speech Evaluation, Impression/Plan Impression: Non verbal for me. No verbalizations elicited. Said to normally speak, and spoke a little for RN/Resident earlier. Delayed cough a couple of minutes after thin water- aspiration? Granddaughter said she hasnt had anything to eat in several days. - Disposition Discharge to: To be Determined - Dysphagia Impressions/Plan Dysphagia Impressions: Risk of Aspiration, Ongoing Evaluation Recommendations: Modified Barium Swallow (if cough, congestion, fever) - Recommendations Diet Consistency: Dysphagia Pureed Medication Administration: Crushed with applesauce Liquids: [place] Thick Supplement: Magic Cup, Ensure Pudding, Other (2 vitor hn)
--- NOTE | 2020-02-11 17:07 | EKG ---
Test Reason : Blood Pressure : / mmHG Vent. Rate : 131 BPM Atrial Rate : 178 BPM P-R Int : 000 ms QRS Dur : 116 ms QT Int : 338 ms P-R-T Axes : 000 009 231 degrees QTc Int : 499 ms ATRIAL FIBRILLATION WITH RAPID VENTRICULAR RESPONSE WITH PREMATURE VENTRICULAR OR ABERRANTLY CONDUCTED COMPLEXES SEPTAL INFARCT , AGE UNDETERMINED MARKED ST ABNORMALITY, POSSIBLE INFERIOR SUBENDOCARDIAL INJURY ABNORMAL ECG WHEN COMPARED WITH ECG OF 13-MAY-2017 16:37, Confirmed by CLARISSA SALAZAR MD ([id number]) on 02/11/2020 5:06:25 PM Referred By: Confirmed By:CLARISSA SALAZAR MD
[2020-02-11 17:54] VITALS: BMI 21.4
[2020-02-11] MEDS ORDERED: DEXTROSE 5%-WATER - 50 ML IVPB ONE (18:10)
[2020-02-11] MEDS ORDERED: PIPERACILLIN/TAZOBACTAM 2.25 GM VIAL IVPB ONE (18:10)
[2020-02-11] MEDS: PIPERACILLIN/TAZOB 2.25 GM 2.25 GM in DEXTROSE 5%-WATER - 50 ML IVPB SCH (19:07)
[2020-02-11] MEDS: INSULIN SLIDING SCALE (NOVOLOG) 1 VIAL SQ SCH (21:37)
--- NOTE | 2020-02-11 22:38 | PN ---
Teaching Attending Note Name of Resident: Brodie Bynum ATTENDING PHYSICIAN STATEMENT I saw and evaluated the patient. I reviewed the resident's note and discussed the case with the resident. I agree with the resident's findings and plan as documented. SUBJECTIVE: Patient seen and examined at bedside, admitted for UTI, Afib w/ RVR, now stable. Granddaughter at bedside, VSS. OBJECTIVE: GENERAL: Awake and alert, Responsive to name HEAD: No signs of trauma, normocephalic, atraumatic EYES: sclera anicteric, conjunctiva clear ENT: Dry MM LUNGS: decreased BS at bases, poor inspiratory effort HEART: Irregularly irregular rhythm; regular rate, normal S1 and S2, no murmurs appreciated ABDOMEN: Soft, BS+, NT, ND EXTREMITIES : 1+ pitting edema b/l, LLE>RLE NEUROLOGICAL: Awake and alert, non-focal SKIN: Cool, Dry, normal turgor, mulitple areas of ecchimosis noted throughout \ Vital Signs (72 hours) 02/10/20 02/10/20 02/10/20 17:00 17:04 18:40 Temperature 97.4 F L 97.4 F L Pulse Rate 144 H Pulse Rate [ 149 H Apical] Respiratory 25 H Rate Blood Pressure 85/00 L Blood Pressure 103/76 [Right Arm] O2 Sat by Pulse Oximetry (%) 02/10/20 02/10/20 02/10/20 19:21 21:50 22:00 Temperature Pulse Rate Pulse Rate [ 146 H 114 H 109 H Apical] Respiratory 19 22 H Rate Blood Pressure Blood Pressure 85/69 L 107/87 109/65 [Right Arm] O2 Sat by Pulse 98 96 Oximetry (%) 02/10/20 02/11/20 02/11/20 23:00 00:00 00:30 Temperature 96.2 F L Pulse Rate Pulse Rate [ 101 H 97 H 94 H Apical] Respiratory 20 20 19 Rate Blood Pressure Blood Pressure 105/61 116/61 107/77 [Right Arm] O2 Sat by Pulse 97 100 100 Oximetry (%) 02/11/20 02/11/20 02/11/20 05:57 10:00 11:00 Temperature Pulse Rate Pulse Rate [ 82 85 Apical] Respiratory 19 20 20 Rate Blood Pressure Blood Pressure 119/62 105/72 [Right Arm] O2 Sat by Pulse 98 96 96 Oximetry (%) 02/11/20 02/11/20 02/11/20 15:00 17:00 18:18 Temperature 97.2 F L 97.5 F L 97.0 F L Pulse Rate 86 90 Pulse Rate [ 88 Apical] Respiratory 20 20 20 Rate Blood Pressure 117/85 136/71 Blood Pressure 110/75 [Right Arm] O2 Sat by Pulse 98 98 95 Oximetry (%) 02/11/20 02/11/20 21:00 21:56 Temperature 98.2 F Pulse Rate 101 H Pulse Rate [ Apical] Respiratory 18 Rate Blood Pressure 113/87 Blood Pressure [Right Arm] O2 Sat by Pulse 97 97 Oximetry (%) Microbiology 02/10/20 17:40 Blood - Peripheral Venous Blood Culture - Preliminary NO GROWTH OBTAINED AFTER 24 HOURS, INCUBATION TO CONTINUE FOR 4 DAYS. 02/10/20 18:28 Blood - Peripheral Venous Blood Culture - Preliminary NO GROWTH OBTAINED AFTER 24 HOURS, INCUBATION TO CONTINUE FOR 4 DAYS. Laboratory Results - last 24 hr 02/10/20 02/10/20 02/11/20 15:00 22:02 04:45 PTT (Actin FS) POC Glucometer Lactic Acid 5.0 H* 2.4 H* Phosphorus Troponin I COVID-19 (ANEESH) Not detected 02/11/20 02/11/20 02/11/20 04:45 16:21 17:55 PTT (Actin FS) POC Glucometer 96 Lactic Acid Phosphorus 2.6 Troponin I 0.03 COVID-19 (ANEESH) 02/11/20 02/11/20 02/11/20 17:55 21:00 21:36 PTT (Actin FS) 77.3 H POC Glucometer 99 Lactic Acid 2.7 H* Phosphorus Troponin I COVID-19 (ANEESH) Home Medications Medication Instructions Recorded Apixaban [Eliquis -] 2.5 mg PO BID 05/13/17 Diltiazem HCl [Cartia Xt] 180 mg PO BID 05/13/17 Metoprolol Succinate [Toprol XL -] 100 mg PO BID 05/13/17 metFORMIN HCL [Glucophage -] 850 mg PO BID 05/13/17 Paroxetine HCl 10 mg PO DAILY 02/11/20 Current Medications Generic Name Dose Route Start Last Admin Trade Name Freq PRN Reason Stop Dose Admin Diltiazem HCl 5 mg 02/11/20 12:09 Cardizem Injection - IVPUSH Q4H PRN TACHYCARDIA Heparin Sodium (Porcine) 1,000 unit 02/11/20 12:08 Heparin - IVPUSH PRN PRN Heparin Heparin Sodium (Porcine) 5,000 unit 02/11/20 12:08 Heparin - IVPUSH PRN PRN Heparin Heparin Sodium/Dextrose 25,000 units in 500 mls @ 16 mls/hr 02/11/20 12:15 02/11/20 22:14 Heparin Infusion - IVPB 750 units/hr TITR KEVAN 15 mls/hr Titration Protocol 800 UNITS/HR Sodium Chloride 1,000 mls @ 42 mls/hr 02/11/20 12:15 02/11/20 13:17 Normal Saline - IV 02/12/20 12:04 42 mls/hr ASDIR KEVAN Administration Piperacillin Sod/Tazobactam 50 mls @ 100 mls/hr 02/11/20 18:00 02/11/20 19:07 Sod 2.25 gm/ Dextrose IVPB 100 mls/hr Q8H-IV KEVAN Administration Protocol Insulin Aspart 1 vial 02/11/20 19:15 02/11/20 21:37 Novolog Vial Sliding Scale - SQ Not Given TIDAC KEVAN Protocol ASSESSMENT AND PLAN: 89 F Afib w/ RVR UTI T2DM HTN HLD Dementia Depression Plan: Now rate controlled w/ Diltiazem pushes/gtt Transition to PO (crush meds and put w/ food) Puree diet per SS Cont. Zosyn for UTI pending cultures Heparin gtt for AC Hold Paroxetine, and reassess MS ID consulted SW referral for VNS at home
[2020-02-12] MEDS ORDERED: PIPERACILLIN/TAZOBACTAM 2.25 GM VIAL IVPB ONE ×3 (01:46→16:42)
[2020-02-12] MEDS ORDERED: DEXTROSE 5%-WATER - 50 ML IVPB ONE ×3 (01:47→16:42)
[2020-02-12] MEDS: PIPERACILLIN/TAZOB 2.25 GM 2.25 GM in DEXTROSE 5%-WATER - 50 ML IVPB SCH ×3 (01:54→17:04)
[2020-02-12] MEDS: INSULIN SLIDING SCALE (NOVOLOG) 1 VIAL SQ SCH ×3 (06:49→17:01)
[2020-02-12 07:07] LABS: HEMATOCRIT 39.6 % (32.4-45.2); HEMOGLOBIN 12.7 GM/dL (10.7-15.3); MCHC 32.1 g/dl (32.0-36.0); MEAN CELL VOLUME 81.1 fl (80-96); MEAN PLT VOLUME 6.6 fl (7.5-11.1); PLATELET COUNT 293 K/MM3 (134-434); RBC 4.89 M/mm3 (3.60-5.2); RDW 22.5 % (11.6-15.6); WHITE BLOOD COUNT 6.7 K/mm3 (4.0-10.0)
[2020-02-12 08:04] LABS: ALBUMIN 1.7 g/dl (3.4-5.0); BILIRUBIN,TOTAL 1.1 mg/dL (0.2-1); BLOOD UREA NITROGEN 19.5 mg/dL (7-18); CALCIUM 8.2 mg/dL (8.5-10.1); CREATININE 0.7 mg/dL (0.55-1.3); MAGNESIUM 1.3 mg/dL (1.8-2.4); POTASSIUM 3.4 mmol/L (3.5-5.1)
--- NOTE | 2020-02-12 08:09 | PN ---
Teaching Attending Note Name of Resident: Yoko Evans ATTENDING PHYSICIAN STATEMENT I saw and evaluated the patient. I reviewed the resident's note and discussed the case with the resident. I agree with the resident's findings and plan as documented. SUBJECTIVE: Patient is an 89yof with Pmhx of dementia, Afib (on Eliquis), HTN,HLD,CAD, T2DN, prior UTI (E.coli, Kelbsiella) presents with acute mental status change. As per notes: In the field she was noted to be tachycardic to the 140s, hypotensive to the 90s/ 70s, received Diltiazem. In ED she was initiated on Diltiazem drip and Digoxin for rate control, with cardiology recommendations. Received approx 750cc IV fluids. OBJECTIVE: Vital Signs Temperature 97.6 F 02/12/20 06:49 Pulse Rate 97 H 02/12/20 06:49 Respiratory Rate 20 02/12/20 06:49 Blood Pressure 152/66 02/12/20 06:49 O2 Sat by Pulse Oximetry (%) 97 02/11/20 21:56 PE: per resident's note CBCD WBC 6.7 K/mm3 (4.0-10.0) 02/12/20 06:35 RBC 4.89 M/mm3 (3.60-5.2) 02/12/20 06:35 Hgb 12.7 GM/dL (10.7-15.3) 02/12/20 06:35 Hct 39.6 % (32.4-45.2) 02/12/20 06:35 MCV 81.1 fl (80-96) 02/12/20 06:35 MCHC 32.1 g/dl (32.0-36.0) 02/12/20 06:35 RDW 22.5 % (11.6-15.6) H 02/12/20 06:35 Plt Count 293 K/MM3 (134-434) 02/12/20 06:35 MPV 6.6 fl (7.5-11.1) L 02/12/20 06:35 CMP Sodium 141 mmol/L (136-145) 02/12/20 06:35 Potassium 3.4 mmol/L (3.5-5.1) L 02/12/20 06:35 Chloride 108 mmol/L (98-107) H 02/12/20 06:35 Carbon Dioxide 28 mmol/L (21-32) 02/12/20 06:35 Anion Gap 6 MMOL/L (8-16) L 02/12/20 06:35 BUN 19.5 mg/dL (7-18) H 02/12/20 06:35 Creatinine 0.7 mg/dL (0.55-1.3) 02/12/20 06:35 Random Glucose 98 mg/dL (74-106) 02/12/20 06:35 Calcium 8.2 mg/dL (8.5-10.1) L 02/12/20 06:35 Total Bilirubin 1.1 mg/dL (0.2-1) H 02/12/20 06:35 AST 7 U/L (15-37) L 02/12/20 06:35 ALT 13 U/L (13-61) 02/12/20 06:35 Alkaline Phosphatase 77 U/L (45-117) 02/12/20 06:35 Total Protein 5.0 g/dl (6.4-8.2) L 02/12/20 06:35 Albumin 1.7 g/dl (3.4-5.0) L 02/12/20 06:35 CARDIAC ENZYMES Troponin I 0.03 ng/ml (0.00-0.05) 02/11/20 04:45 Current Medications Generic Name Dose Route Start Last Admin Trade Name Freq PRN Reason Stop Dose Admin Diltiazem HCl 5 mg 02/11/20 12:09 Cardizem Injection - IVPUSH Q4H PRN TACHYCARDIA Heparin Sodium (Porcine) 1,000 unit 02/11/20 12:08 Heparin - IVPUSH PRN PRN Heparin Heparin Sodium (Porcine) 5,000 unit 02/11/20 12:08 Heparin - IVPUSH PRN PRN Heparin Heparin Sodium/Dextrose 25,000 units in 500 mls @ 16 mls/hr 02/11/20 12:15 02/11/20 22:14 Heparin Infusion - IVPB 750 units/hr TITR KEVAN 15 mls/hr Titration Protocol 800 UNITS/HR Sodium Chloride 1,000 mls @ 42 mls/hr 02/11/20 12:15 02/11/20 13:17 Normal Saline - IV 02/12/20 12:04 42 mls/hr ASDIR KEVAN Administration Piperacillin Sod/Tazobactam 50 mls @ 100 mls/hr 02/11/20 18:00 02/12/20 01:54 Sod 2.25 gm/ Dextrose IVPB 100 mls/hr Q8H-IV KEVAN Administration Protocol Insulin Aspart 1 vial 02/11/20 19:15 02/12/20 06:49 Novolog Vial Sliding Scale - SQ Not Given TIDAC [facility] Protocol Home Medications Medication Instructions Recorded Apixaban [Eliquis -] 2.5 mg PO BID 05/13/17 Diltiazem HCl [Cartia Xt] 180 mg PO BID 05/13/17 Metoprolol Succinate [Toprol XL -] 100 mg PO BID 05/13/17 metFORMIN HCL [Glucophage -] 850 mg PO BID 05/13/17 Paroxetine HCl 10 mg PO DAILY 02/11/20 Ct of the head: no acute pathology CXR: right hilum fullness , fullness of the superior mediastinum ;atelectasis vs RUL pneumonia, some pleural reaction at both bases along with a new dense retrocardiac area, compatible with atelectasis or infiltrate. ASSESSMENT AND PLAN: Patient is an 89 year old female with history of dementia, Afib (on Eliquis), hypertension, hyperlipidemia, coronary artery disease, diabetes mellitus, prior UTI (E.coli, Kelbsiella) presents to the ED with acute mental status change . # Sepsis secondary to acute complicated UTI vs pneumonia on Vanco and zosyn #Acute metabolic encephalopathy due to sepsis due to UTI, follow the cx #Afib with rate control now with CHADSVASC score 5: ON anticoagulaiton, Heparin drip DUE TO possible . Reinstate home eliquis 2.5mg PO BID once safely tolerating oral intake will continue # Hx of HTN/HLD on Diltiazem, continue to hold home Metoprolol in setting of borderline blood pressures. #Hx of T2DM : SS with coverge, A1c. DVT Px; heparin as per Joycelyn spencer: Suggest-Trial Dysphagia ground and thin liquid ensure, magic cup, ensure pudding Pt reportedly likes eggs, cold water, coffee, tuna salad, ice cream, sherbet. Her son Kb March ([phone])
[2020-02-12] MEDS: HEPARIN INFUSION - 25,000 UNITS/500 ML INFUS.BAG IVPB SCH ×4 (08:55→18:01)
[2020-02-12] MEDS ORDERED: MAGNESIUM SULFATE IN WATER 2 GM/50 ML IVPB IVPB ONE (09:00)
[2020-02-12] MEDS ORDERED: FLU VACCINE (FLULAVAL) PF 60 MCG/0.5 ML SYRINGE 2020-2021 IM ONE (11:00)
--- NOTE | 2020-02-12 12:02 | PN ---
Progress Note (short form) - Note Progress Note: Chief Complaint: altered mental status s: denies any chest pain, palps, dizziness, dyspnea Current Medications Generic Name Dose Route Start Last Admin Trade Name Tra PRN Reason Stop Dose Admin Diltiazem HCl 5 mg 02/11/20 12:09 Cardizem Injection - IVPUSH Q4H PRN TACHYCARDIA Heparin Sodium (Porcine) 1,000 unit 02/11/20 12:08 Heparin - IVPUSH PRN PRN Heparin Heparin Sodium (Porcine) 5,000 unit 02/11/20 12:08 Heparin - IVPUSH PRN PRN Heparin Heparin Sodium/Dextrose 25,000 units in 500 mls @ 16 mls/hr 02/11/20 12:15 02/12/20 08:55 Heparin Infusion - IVPB 650 units/hr TITR KEVAN 13 mls/hr Administration Protocol 800 UNITS/HR Sodium Chloride 1,000 mls @ 42 mls/hr 02/11/20 12:15 02/11/20 13:17 Normal Saline - IV 02/12/20 12:04 42 mls/hr ASDIR KEVAN Administration Piperacillin Sod/Tazobactam 50 mls @ 100 mls/hr 02/11/20 18:00 02/12/20 09:01 Sod 2.25 gm/ Dextrose IVPB 100 mls/hr Q8H-IV KEVAN Administration Protocol Insulin Aspart 1 vial 02/11/20 19:15 02/12/20 06:49 Novolog Vial Sliding Scale - SQ Not Given TIDAC KEVAN Protocol Vital Signs Period Temp Pulse Resp BP Sys/Alzaro Pulse Ox Last 24 Hr 97.0 F-98.2 F 86-101 18-20 110-152/60-87 95-98 Constitutional: Yes: Well Nourished, No Distress Eyes: No: Sclera Icterus Respiratory: Yes: CTA Bilaterally. No: Accessory Muscle Use, Rales Gastrointestinal: Yes: Normal Bowel Sounds. No: Distention, Hepatomegaly, Palpable Mass, Tenderness Cardiovascular: Yes: Pulse Irregular JVD: No Carotid Bruit: No PMI: Non-Displaced Heart Sounds: Yes: S1, S2. No: Gallop Murmur: No: Systolic Murmur, Diastolic Murmur Extremities: No: Cold, Cyanosis Edema: No Peripheral Pulses: 2+ Left Carotid, 2+ Right Carotid, 2+ Left Doralis Pedis, 2+ Right Dorsalis Pedis Integumentary: No: Jaundice diaphoresis Neurological: awake, alert Psychiatric: No: Agitated ekg: afib, rvr, rbbb, lat st depressions, similar to priors CXR: no chf tele: afib, rate generally controlled, brief episodes RVR to 130s this AM Echo here 02/2016: nl lv size, mod dec lvef, global hk, nl rv, mild-mod mr, mod tr, rvsp 50-60,trace-mild ar, mild pr Echo 07/22: Nl LV/RV. No significant valvular abnormalities. Assessment/Plan paroxysmal Afib, rapid HR: -at home was on dilt 180 bid, toprol 100 bid, for rate control. Here now with rvr, possibly from sepsis. After iv dig and dilt gtt hr has improved and bp improved as well. - resume home dilt and metoprolol when able to take PO reliably -chadsvasc is 5 (no cva/tia hx) so has indication for ac, was on eliquis at home, resume at low dose 2.5 bid (for age and wt) when able to take PO reliably, on heparin gtt for now chronic syst chf: -Nl EF 07/2015 --> 02/2016 (EF mod depressed). 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
--- NOTE | 2020-02-12 13:39 | PN ---
Progress Note, Physician - Current Medication List Current Medications: Active Medications Diltiazem HCl (Cardizem Injection -) 5 mg IVPUSH Q4H PRN PRN Reason: TACHYCARDIA Diltiazem HCl (Cardizem -) 30 mg PO Q6HPO KEVAN Heparin Sodium (Porcine) (Heparin -) 1,000 unit IVPUSH PRN PRN PRN Reason: Heparin Heparin Sodium (Porcine) (Heparin -) 5,000 unit IVPUSH PRN PRN PRN Reason: Heparin Heparin Sodium/Dextrose (Heparin Infusion -) 25,000 units in 500 mls @ 16 mls/hr IVPB TITR KEVAN; Protocol Last Admin: 02/12/20 08:55 Dose: 650 units/hr, 13 mls/hr Documented by: Piperacillin Sod/Tazobactam (Sod 2.25 gm/ Dextrose) 50 mls @ 100 mls/hr IVPB Q8H-IV KEVAN; Protocol Last Admin: 02/12/20 09:01 Dose: 100 mls/hr Documented by: Insulin Aspart (Novolog Vial Sliding Scale -) 1 vial SQ TIDAC [facility]; Protocol Last Admin: 02/12/20 12:06 Dose: Not Given Documented by: - Objective Vital Signs: Vital Signs Temperature 97.8 F 02/12/20 09:00 Pulse Rate 96 H 02/12/20 09:00 Respiratory Rate 18 02/12/20 09:00 Blood Pressure 142/80 02/12/20 09:00 O2 Sat by Pulse Oximetry (%) 96 02/12/20 09:00 Labs: CBC, BMP 02/12/20 06:35 02/12/20 06:35 INR, PTT INR 1.68 (0.83-1.09) H 02/10/20 18:28
--- NOTE | 2020-02-12 13:41 | PN ---
Progress Note, SUPER[employer]ES - Note Progress Note: Selected Entries 02/12/20 02/12/20 02/12/20 00:57 06:49 09:00 Diet Tolerated Temperature 97.7 F 97.6 F 97.8 F Pulse Rate 91 H 97 H 96 H Blood Pressure 116/60 152/66 142/80 02/12/20 12:36 Diet Tolerated Refused Temperature Pulse Rate Blood Pressure Laboratory Tests 02/10/20 02/12/20 18:28 06:35 WBC 10.9 H 6.7 Much improved as compared to my assessment inj ED yesterday. Today, opt is verbally responsive, able to provide her name, express simple wants/needs. Pt tolerated trial of thin water without overt signs of aspiration. Poor appetite. Suggest-Trial Dysphagia ground and thin liquid ensure, magic cup, ensure pudding Pt reportedly likes eggs, cold water, coffee, tuna salad, ice cream, sherbet.
--- NOTE | 2020-02-12 14:20 | PN ---
Physical Exam: SUBJECTIVE: Patient seen and examined. Pt was alert. When asked for her name, pt answered correctly. Denied having any pain. Stated "Everything is alright." OBJECTIVE: Vital Signs Period Temp Pulse Resp BP Sys/Lazaro Pulse Ox Last 24 Hr 97.0 F-98.2 F 86-101 18-20 110-152/60-87 95-98 GENERAL: AAOx1 (to self), not in acute distress HEENT: NCAT, EOMI, moist mucus membranes CARDIAC: Irregular rate and rhythm; +systolic murmur RESPIRATORY: CTA b/l, no wheezes ABDOMEN: Soft, nondistended, nontender to palpation. Normoactive bowel sounds. EXTREMITIES: warm, well-perfused. 1+ pitting edema on LLE SKIN: excoriations seen on sternum. Warm, dry Laboratory Last Values WBC 6.7 K/mm3 (4.0-10.0) 02/12/20 06:35 RBC 4.89 M/mm3 (3.60-5.2) 02/12/20 06:35 Hgb 12.7 GM/dL (10.7-15.3) 02/12/20 06:35 Hct 39.6 % (32.4-45.2) 02/12/20 06:35 MCV 81.1 fl (80-96) 02/12/20 06:35 MCH 26.0 pg (25.7-33.7) 02/12/20 06:35 MCHC 32.1 g/dl (32.0-36.0) 02/12/20 06:35 RDW 22.5 % (11.6-15.6) H 02/12/20 06:35 Plt Count 293 K/MM3 (134-434) 02/12/20 06:35 MPV 6.6 fl (7.5-11.1) L 02/12/20 06:35 Absolute Neuts (auto) 9.6 K/mm3 (1.5-8.0) H 02/10/20 18:28 Neutrophils % 88.1 % (42.8-82.8) H D 02/10/20 18:28 Lymphocytes % 6.4 % (8-40) L D 02/10/20 18:28 Monocytes % 5.4 % (3.8-10.2) 02/10/20 18:28 Eosinophils % 0.0 % (0-4.5) D 02/10/20 18: Basophils % 0.1 % (0-2.0) 02/10/20 18: Nucleated RBC % 0 % (0-0) 02/10/20 18: Anisocytosis 1+ 02/10/20 18:28 Microcytosis 1+ 02/10/20 18: Macrocytosis 1+ 02/10/20 18: PT with INR 19.90 SEC (9.7-13.0) H 02/10/20 18:28 INR 1.68 (0.83-1.09) H 02/10/20 18: PTT (Actin FS) 99.6 SECONDS (25.2-36.5) H 02/12/20 06:35 VBG pH 7.308 (7.310-7.410) L 02/10/20 18:00 POC VBG pCO2 49.4 mmHg (38-52) 02/10/20 18:00 POC VBG pO2 26.4 mmHg (28-48) L 02/10/20 18:00 VBG HCO3 24.2 mmol/L (23-29) 02/10/20 18:00 VBG O2 Sat (Thanh) 42.8 % (70-80) L 02/10/20 18:00 VBG Base Excess -2.6 mmol/L (-2-2) L 02/10/20 18:00 Sodium 141 mmol/L (136-145) 02/12/20 06:35 Potassium 3.4 mmol/L (3.5-5.1) L 02/12/20 06:35 Chloride 108 mmol/L (98-107) H 02/12/20 06:35 Carbon Dioxide 28 mmol/L (21-32) 02/12/20 06:35 Anion Gap 6 MMOL/L (8-16) L 02/12/20 06:35 BUN 19.5 mg/dL (7-18) H 02/12/20 06:35 Creatinine 0.7 mg/dL (0.55-1.3) 02/12/20 06:35 Est GFR (CKD-EPI)AfAm 89.03 02/12/20 06:35 Est GFR (CKD-EPI)NonAf 76.82 02/12/20 06:35 POC Glucometer 86 UNITS (80-120) 02/12/20 11:44 Random Glucose 98 mg/dL (74-106) 02/12/20 06:35 Hemoglobin A1c % 6.4 % (4.2-6.3) H 02/12/20 06:35 Lactic Acid 2.7 mmol/L (0.4-2.0) H* 02/11/20 17:55 Calcium 8.2 mg/dL (8.5-10.1) L 02/12/20 06:35 Phosphorus 2.6 mg/dL (2.5-4.9) 02/11/20 17:55 Magnesium 1.3 mg/dL (1.8-2.4) L 02/12/20 06:35 Total Bilirubin 1.1 mg/dL (0.2-1) H 02/12/20 06:35 AST 7 U/L (15-37) L 02/12/20 06:35 ALT 13 U/L (13-61) 02/12/20 06:35 Alkaline Phosphatase 77 U/L (45-117) 02/12/20 06:35 Troponin I 0.03 ng/ml (0.00-0.05) 02/11/20 04:45 B-Natriuretic Peptide 58892.5 pg/ml (5-450) H 02/10/20 18:28 Total Protein 5.0 g/dl (6.4-8.2) L 02/12/20 06:35 Albumin 1.7 g/dl (3.4-5.0) L 02/12/20 06:35 TSH 2.36 uIU/ml (0.358-3.74) 02/12/20 06:35 Urine Color Dk yellow 02/10/20 18:28 Urine Appearance Turbid 02/10/20 18:28 Urine pH 5.0 (5.0-8.0) D 02/10/20 18:28 Ur Specific [place] 1.017 (1.010-1.035) 02/10/20 18:28 Urine Protein 2+ (NEGATIVE) H 02/10/20 18:28 Urine Glucose (UA) Negative (NEGATIVE) 02/10/20 18:28 Urine Ketones Trace (NEGATIVE) H 02/10/20 18:28 Urine Blood 3+ (NEGATIVE) H 02/10/20 18:28 Urine Nitrite Negative (NEGATIVE) 02/10/20 18:28 Urine Bilirubin 2+ (NEGATIVE) H 02/10/20 18:28 Urine Urobilinogen 1.0 mg/dL (0.2-1.0) 02/10/20 18:28 Ur Leukocyte Esterase 2+ (NEGATIVE) H 02/10/20 18:28 Urine WBC (Auto) 7817 /uL (0-25.8) 02/10/20 18:28 Urine RBC (Auto) 375.8 /uL (0-23.9) 02/10/20 18:28 Urine Casts (Auto) 53 /uL (0-3.1) 02/10/20 18: U Pathogenic Cast Auto 6 /lpf (NEGATIVE) 02/10/20 18: U Epithel Cells (Auto) >36 /uL (0-25.1) 02/10/20 18:28 Urine Bacteria (Auto) >9,000 /uL (0-1359) 02/10/20 18:28 Urine Yeast (Auto) None (NEGATIVE) 02/10/20 18:28 COVID-19 (ANEESH) Not detected (Not Detected) 02/10/20 15:00 Active Medications Diltiazem HCl (Cardizem Injection -) 5 mg IVPUSH Q4H PRN PRN Reason: TACHYCARDIA Diltiazem HCl (Cardizem -) 30 mg PO Q6HPO [facility] Heparin Sodium (Porcine) (Heparin -) 1,000 unit IVPUSH PRN PRN PRN Reason: Heparin Heparin Sodium (Porcine) (Heparin -) 5,000 unit IVPUSH PRN PRN PRN Reason: Heparin Heparin Sodium/Dextrose (Heparin Infusion -) 25,000 units in 500 mls @ 16 mls/hr IVPB TITR [facility]; Protocol Last Admin: 02/12/20 08:55 Dose: 650 units/hr, 13 mls/hr Documented by: Piperacillin Sod/Tazobactam (Sod 2.25 gm/ Dextrose) 50 mls @ 100 mls/hr IVPB Q8H-IV [facility]; Protocol Last Admin: 02/12/20 09:01 Dose: 100 mls/hr Documented by: Insulin Aspart (Novolog Vial Sliding Scale -) 1 vial SQ TIDAC [facility]; Protocol Last Admin: 02/12/20 12:06 Dose: Not Given Documented by: ASSESSMENT/PLAN: Pt is an 89 year old F with PMH of dementia, Afib (on Eliquis), HTN, HLD, chronic CHF, CAD, DM, prior UTI (E.coli, Kelbsiella) presented to the ED with AMS. Pt is currently admitted for sepsis secondary to UTI vs. PNA Sepsis secondary to acute complicated UTI vs pneumonia -Leukocytosis improved -CXR with possible atelectasis in RUL and possile prominent vascularity/other etiology. New dense reaction in retrocardiac area, suspicious for atelectasis/infiltrate -f/u CT chest -UA 2+ proteins,trace ketones, 3+ blood, 2+ leukocyte esterase, >9000 bacteria with >36 epithelial cells -c/w Zosyn (started 02/09, today is day 3) -Cultures: -Bcx negative thus far, pending final results -Ucx pending -ID consulted HFrEF -Echo showed LVEF 35%, severe hypokinesis of L ventricle. Mild MR, mild-moderate TR, trace TR, large L pleural effusion. -pulmonary consulted. Possible thoracentesis? Acute metabolic encephalopathy secondary to UTI, improved -CT head w/o acute pathology -continue to assess mental status Afib with RVR -CHADSVASC score 5 -c/w Heparin drip due to aspiration risk. -f/u modified barium swallow prior to resuming home eliquis 2.5mg PO BID -Will continue Diltiazem 180mg PO BID once able to safely tolerate oral intake. -For now, diltiazem 30mg q6H and Diltiazem 5mg IV push for heart rate greater than 120 bpm hold if systolic BP<90 mmHg. -c/w telemetry -f/u echo HTN, HLD, chronic -Continue Diltiazem -Hold home Metoprolol DM, chronic -ISS + BGM -hold home metformin FEN -No standing fluids -replete lytes with goal of K+ 4, and Mg++ 2, respectively. -Dysphagia chopped with thin liquids Prophylaxis -Heparin drip Disposition -continue to monitor in telemetry Visit type - Emergency Visit Emergency Visit: Yes ED Registration Date: 02/10/20 Care time: The patient presented to the Emergency Department on the above date and was hospitalized for further evaluation of their emergent condition. - New Patient This patient is new to me today: No - Critical Care Critical Care patient: No - Medication Review Med list reviewed for High Risk Meds patients 65 and older: Yes ATTENDING PHYSICIAN STATEMENT I saw and evaluated the patient. I reviewed the resident's note and discussed the case with the resident. I agree with the resident's findings and plan as documented. SUBJECTIVE: OBJECTIVE: ASSESSMENT AND PLAN:
--- NOTE | 2020-02-12 16:11 | ECHO ---
Name: FLORIDA HINTON MARIA Exam:Adult Echocardiogram Study Date: 02/12/2020 02:38 PM Age: 89 yrs Height: 64 in Weight: 125 lb BSA: 1.6 m2 MMode/2D Measurements & Calculations IVSd: 0.93 cm Ao root diam: 3.2 cm LVIDd: 4.3 cm LA dimension: 3.4 cm LVIDs: 3.7 cm LVPWd: 1.1 cm LVPWs: 1.3 cm EDV(Teich): 81.4 ml ESV(Teich): 57.9 ml LVOT diam: 2.0 cm LAV (MOD-bp): 101.0 ml RV S Chase: 10.6 cm/sec Doppler Measurements & Calculations Ao V2 max: 119.7 cm/sec LV V1 max P.3 mmHg Ao max P.7 mmHg LV V1 max: 57.8 cm/sec WEI(V,D): 1.6 cm2 MR max chase: 267.6 cm/sec TR max chase: 254.4 cm/sec MR max P.7 mmHg TR max P.4 mmHg PA V2 max: 105.9 cm/sec PI end-d chase: 146.6 cm/sec PA max P.5 mmHg Med Peak E' Chase: 6.6 cm/sec Lat Peak E' Chase: 9.7 cm/sec Procedure A complete two-dimensional transthoracic echocardiogram was performed (2D, M-mode, Doppler and color flow Doppler). Left Ventricle The left ventricle is normal in size. Ejection Fraction = 35%. Left ventricular systolic function is moderate to severely reduced. Septal motion is consistent with conduction abnormality. There is moderate to se keisha global hypokinesis of the left ventricle. Right Ventricle The right ventricle is normal in size and function. Atria Normal left and right atrial size and function. Mitral Valve The mitral valve is normal in structure and function. There is mild mitral regurgitation. Tricuspid Valve The tricuspid valve is normal in structure and function. There is mild to moderate tricuspid regurgit ation. Right ventricular systolic pressure is 31 mmhg. Aortic Valve There is mild to moderate aortic valve thickening. Trace aortic regurgitation. Pulmonic Valve The pulmonic valve is normal in structure and function. Trace to mild pulmonic valvular regurgitation . Great Vessels The aortic root is normal size. Pericardium/Pleura There is no pericardial effusion. Large left pleural effusion. Interpretation Summary Septal motion is consistent with conduction abnormality. There is moderate to severe global hypokinesis of the left ventricle. Left ventricular systolic function is moderate to severely reduced. Ejection Fraction = 35%. There is mild mitral regurgitation. There is mild to moderate tricuspid regurgitation. Right ventricular systolic pressure is 31 mmhg. Trace aortic regurgitation. Large left pleural effusion. MD Rojelio Castellanos 02/12/2020 04:11 PM
[2020-02-12] MEDS: AMINO ACIDS/PROTEIN HYDROLYS 30 ML LIQUID.PKT PO SCH (17:01)
[2020-02-12] MEDS: dilTIAZem HCL 30 MG TABLET PO SCH (17:04)
[2020-02-13] MEDS: dilTIAZem HCL 30 MG TABLET PO SCH ×4 (00:31→17:45)
[2020-02-13] MEDS ORDERED: PIPERACILLIN/TAZOBACTAM 2.25 GM VIAL IVPB ONE ×3 (01:06→14:50)
[2020-02-13] MEDS ORDERED: DEXTROSE 5%-WATER - 50 ML IVPB ONE ×3 (01:06→14:50)
[2020-02-13] MEDS: PIPERACILLIN/TAZOB 2.25 GM 2.25 GM in DEXTROSE 5%-WATER - 50 ML IVPB SCH ×3 (01:29→17:45)
[2020-02-13] MEDS: HEPARIN INFUSION - 25,000 UNITS/500 ML INFUS.BAG IVPB SCH (02:40)
[2020-02-13] MEDS: INSULIN SLIDING SCALE (NOVOLOG) 1 VIAL SQ SCH ×3 (06:37→19:14)
[2020-02-13 08:05] LABS: BLOOD UREA NITROGEN 14.5 mg/dL (7-18); CALCIUM 8.4 mg/dL (8.5-10.1); CREATININE 0.6 mg/dL (0.55-1.3); MAGNESIUM 1.8 mg/dL (1.8-2.4); PHOSPHOROUS 2.4 mg/dL (2.5-4.9); POTASSIUM 3.6 mmol/L (3.5-5.1)
[2020-02-13] MEDS: AMINO ACIDS/PROTEIN HYDROLYS 30 ML LIQUID.PKT PO SCH ×2 (09:25→17:45)
--- NOTE | 2020-02-13 10:46 | PN ---
Progress Note, MATERIALS PLANNING MANAGER - Note Progress Note: Selected Entries 02/12/20 02/12/20 02/12/20 00:57 06:49 09:00 Breakfast Diet Tolerated Temperature Pulse Rate Respiratory 20 20 18 Rate Respiratory Non-Labored Effort Blood Pressure O2 Sat by Pulse 96 Oximetry (%) Oxygen Delivery Nasal Cannula Method Oxygen Flow 2 Rate 02/12/20 02/12/20 02/12/20 14:00 18:00 21:00 Breakfast Diet Tolerated Temperature Pulse Rate Respiratory 20 20 Rate Respiratory Effort Blood Pressure O2 Sat by Pulse 94 L Oximetry (%) Oxygen Delivery Nasal Cannula Method Oxygen Flow 2 Rate 02/12/20 02/13/20 02/13/20 22:00 01:49 06:00 Breakfast Diet Tolerated Temperature 97.7 F Pulse Rate 115 H 102 H Respiratory 20 20 20 Rate Respiratory Effort Blood Pressure 138/67 103/75 O2 Sat by Pulse Oximetry (%) Oxygen Delivery Method Oxygen Flow Rate 02/13/20 09:45 Breakfast 50% Diet Tolerated Well Temperature Pulse Rate Respiratory Rate Respiratory Effort Blood Pressure O2 Sat by Pulse Oximetry (%) Oxygen Delivery Method Oxygen Flow Rate Laboratory Tests 02/10/20 02/10/20 02/12/20 15:00 18:28 06:35 WBC 10.9 H 6.7 COVID-19 (ANEESH) Not detected Dysphagia ground and thin liquid Afebrile. WBC WNL. Not congested. CXR with possible atelectasis in RUL and possible prominent vascularity/other etiology. New dense reaction in retrocardiac area, suspicious for atelectasis/infiltrate CT chest and MBS ordered. Reviewed case with medical team. MBS not indicated at this time. Pt is tolerating diet well. She is edentulous, dentures not in the hospital (taken home?) Pt is verbal, confused, crying that her brother and parents , disoriented to time. Able to redirect, comfort pt easily. Continue Dys ground, thin liquids. Supplements b/n meals. If dentures fit well and are tolerated, diet upgrade may be indicated at home.
[2020-02-13 11:10] LABS: HEMATOCRIT 38.5 % (32.4-45.2); HEMOGLOBIN 12.4 GM/dL (10.7-15.3); MCH 25.9 pg (25.7-33.7); MCHC 32.2 g/dl (32.0-36.0); MEAN CELL VOLUME 80.6 fl (80-96); MEAN PLT VOLUME 6.5 fl (7.5-11.1); PLATELET COUNT 312 K/MM3 (134-434); RBC 4.78 M/mm3 (3.60-5.2); RDW 22.7 % (11.6-15.6)
--- NOTE | 2020-02-13 12:23 | PN ---
Progress Note (short form) - Note Progress Note: Chief Complaint: altered mental status s: no chest pain, palps, dizziness, dyspnea Current Medications Generic Name Dose Route Start Last Admin Trade Name Tra PRN Reason Stop Dose Admin Amino Acids 30 ml 02/12/20 17:30 02/13/20 09:25 Prosource No Carb Liquid Pkt PO 30 ml BID@0800,1730 KEVAN Administration Apixaban 2.5 mg 02/13/20 22:00 Eliquis - PO BID KEVAN Diltiazem HCl 5 mg 02/11/20 12:09 Cardizem Injection - IVPUSH Q4H PRN TACHYCARDIA Diltiazem HCl 30 mg 02/12/20 18:00 02/13/20 11:27 Cardizem - PO 30 mg Q6HPO KEVAN Administration Piperacillin Sod/Tazobactam 50 mls @ 100 mls/hr 02/11/20 18:00 02/13/20 09:25 Sod 2.25 gm/ Dextrose IVPB 100 mls/hr Q8H-IV KEVAN Administration Protocol Insulin Aspart 1 vial 02/11/20 19:15 02/13/20 11:27 Novolog Vial Sliding Scale - SQ Not Given TIDAC [facility] Protocol Multivitamins/Minerals/Vitamin C 1 tab 02/13/20 10:00 Tab-A-Vit - PO DAILY [facility] Vital Signs Period Temp Pulse Resp BP Sys/Lazaro Pulse Ox Last 24 Hr 97 F-97.7 F 102-120 20-20 103-149/61-76 94 Constitutional: Yes: Well Nourished, No Distress Eyes: No: Sclera Icterus Respiratory: Yes: CTA Bilaterally. No: Accessory Muscle Use, Rales Gastrointestinal: Yes: Normal Bowel Sounds. No: Distention, Hepatomegaly, Palpable Mass, Tenderness Cardiovascular: Yes: Pulse Irregular JVD: No Carotid Bruit: No PMI: Non-Displaced Heart Sounds: Yes: S1, S2. No: Gallop Murmur: No: Systolic Murmur, Diastolic Murmur Extremities: No: Cold, Cyanosis Edema: No Peripheral Pulses: 2+ Left Carotid, 2+ Right Carotid, 2+ Left Doralis Pedis, 2+ Right Dorsalis Pedis Integumentary: No: Jaundice diaphoresis Neurological: awake, alert Psychiatric: No: Agitated ekg: afib, rvr, rbbb, lat st depressions, similar to priors CXR: no chf tele: afib, rate generally controlled, brief episodes RVR to 130s-140s Echo here 02/2016: nl lv size, mod dec lvef, global hk, nl rv, mild-mod mr, mod tr, rvsp 50-60,trace-mild ar, mild pr Echo 07/22: Nl LV/RV. No significant valvular abnormalities. echo 02/2020 septal motion c/w conduction abnormality, mod to severe global hypokinesis of LV, mod to severely reduced LV function, EF 35%, mild MR, mild to mod TR, RVSP 31 mmHg, tr AR, large L pleural effusion Assessment/Plan paroxysmal Afib, rapid HR: -at home was on dilt 180 bid, toprol 100 bid, for rate control. Here now with rvr, possibly from sepsis. After iv dig and dilt gtt hr has improved and bp improved as well. - resumed diltiazem 30 mg PO Q6H and will add metoprolol tartrate 50 mg BID (both can be crushed) -chadsvasc is 5 (no cva/tia hx) - resumed home eliquis 2.5 mg BID chronic syst chf: -Nl EF 07/2015 --> 02/2016 (EF mod depressed). 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
--- NOTE | 2020-02-13 12:50 | PN ---
Progress Note, Physician History of Present Illness: stable doing well no complaints more awake and alert - Current Medication List Current Medications: Active Medications Amino Acids (Prosource No Carb Liquid Pkt) 30 ml PO BID@0800,1730 [facility] Last Admin: 02/13/20 09:25 Dose: 30 ml Documented by: Apixaban (Eliquis -) 2.5 mg PO BID [facility] Diltiazem HCl (Cardizem Injection -) 5 mg IVPUSH Q4H PRN PRN Reason: TACHYCARDIA Diltiazem HCl (Cardizem -) 30 mg PO Q6HPO [facility] Last Admin: 02/13/20 11:27 Dose: 30 mg Documented by: Piperacillin Sod/Tazobactam (Sod 2.25 gm/ Dextrose) 50 mls @ 100 mls/hr IVPB Q8H-IV [facility]; Protocol Last Admin: 02/13/20 09:25 Dose: 100 mls/hr Documented by: Insulin Aspart (Novolog Vial Sliding Scale -) 1 vial SQ TIDAC [facility]; Protocol Last Admin: 02/13/20 11:27 Dose: Not Given Documented by: Metoprolol Tartrate (Lopressor -) 50 mg PO BID [facility] Multivitamins/Minerals/Vitamin C (Tab-A-Vit -) 1 tab PO DAILY [facility] - Objective Vital Signs: Vital Signs Temperature 98.2 F 02/13/20 12:21 Pulse Rate 110 H 02/13/20 12:21 Respiratory Rate 20 02/13/20 12:21 Blood Pressure 112/74 02/13/20 12:21 O2 Sat by Pulse Oximetry (%) 94 L 02/12/20 21:00 Constitutional: Yes: No Distress, Calm Cardiovascular: Yes: S1, S2 Respiratory: Yes: Regular, Poor Air Entry Gastrointestinal: Yes: Normal Bowel Sounds, Soft Genitourinary: Yes: Kim Present Musculoskeletal: Yes: WNL Extremities: Yes: WNL Labs: CBC, BMP 02/13/20 10:25 02/13/20 07:10 INR, PTT INR 1.68 (0.83-1.09) H 02/10/20 18:28 Assessment/Plan AFib with RVR R/O Sepsis due to a source : hemodynamics have been stable Dementia DM History of frequent UTIs Pulmonary vascular congestion on CXR : low clinical suspicion for PNA plan cx results noted ct of the chest if patient remains stable might deescalte the abx tomorrow
[2020-02-13] MEDS: METOPROLOL TARTRATE 50 MG TABLET (FP) PO SCH ×2 (13:30→22:32)
[2020-02-13] MEDS ORDERED: ACETAMINOPHEN 325 MG TABLET (FP) PO PRN (15:45)
--- NOTE | 2020-02-13 16:34 | DS ---
Physical Exam: SUBJECTIVE: Patient seen and examined OBJECTIVE: Vital Signs Period Temp Pulse Resp BP Sys/Lazaro Pulse Ox Last 24 Hr 97.4 F-98.2 F 83-117 20-20 103-149/59-76 94-94 PHYSICAL EXAM LABS Laboratory Results - last 24 hr 02/10/20 02/12/20 02/12/20 18:28 16:58 17:00 WBC RBC Hgb Hct MCV MCH MCHC RDW Plt Count MPV PTT (Actin FS) 34.6 Sodium Potassium Chloride Carbon Dioxide Anion Gap BUN Creatinine Est GFR (CKD-EPI)AfAm Est GFR (CKD-EPI)NonAf POC Glucometer 76 Random Glucose Lactic Acid 3.2 H* Calcium Phosphorus Magnesium 02/13/20 02/13/20 02/13/20 00:00 05:53 07:10 WBC RBC Hgb Hct MCV MCH MCHC RDW Plt Count MPV PTT (Actin FS) 140.5 H 42.6 H Sodium Potassium Chloride Carbon Dioxide Anion Gap BUN Creatinine Est GFR (CKD-EPI)AfAm Est GFR (CKD-EPI)NonAf POC Glucometer 80 Random Glucose Lactic Acid Calcium Phosphorus Magnesium 02/13/20 02/13/20 02/13/20 07:10 07:10 10:25 WBC 5.0 RBC 4.78 Hgb 12.4 Hct 38.5 MCV 80.6 MCH 25.9 MCHC 32.2 RDW 22.7 H Plt Count 312 MPV 6.5 L PTT (Actin FS) Sodium 141 Potassium 3.6 Chloride 108 H Carbon Dioxide 28 Anion Gap 5 L BUN 14.5 Creatinine 0.6 Est GFR (CKD-EPI)AfAm 93.66 Est GFR (CKD-EPI)NonAf 80.81 POC Glucometer Random Glucose 93 Lactic Acid 1.4 Calcium 8.4 L Phosphorus 2.4 L Magnesium 1.8 HOSPITAL COURSE: Date of Admission:02/10/20 Date of Discharge: 02/13/20 Minutes to complete discharge: 36 Discharge Summary Problems reviewed: Yes Reason For Visit: ALTERED MENTAL STATUS Current Active Problems CAD (coronary artery disease) (Chronic) Diabetes (Chronic) HTN (hypertension) (Chronic) Condition: Improved - Instructions Diet, Activity, Other Instructions: Your Hospitalization: You came to the hospital because you were experiencing confusion. You were admitted to the hospital for care of these symptoms. We did imaging of your chest and your head. You were found to have some changes in your lungs that may suggest fluid. There were no concerning findings of your head. We also tested your urine and you were found to have a urinary tract infection. You were treated with antibiotics with improvement of your symptoms. You are now stable and may return home. Medications: Please continue to take your home medications as prescribed: -Paroxetine 10mg by mouth daily -Metoprolol succinate 100mg by mouth twice a day -Metformin 500mg by mouth twice a day -Diltiazem 180mg by mouth twice a day -Apixaban (Eliquis) 2.5mg by mouth twice a day You have *NEW* medication. -Acetaminophen 650mg every 6 hours as needed for pain. Follow up: Please make an appointment to see your supervisor framing [employer], Dr. Monteiro, 1 week from today. You may follow up with him regarding your atrial fibrillation and other heart conditions. Please make an appointment to see a primary care provider, Dr. Mcguire 2 weeks from today. You may discuss your hospitalization with him. Additional instructions: -You are being discharged home. -Please call 911 or come directly to the emergency department if you experience recurrence of the symptoms that brought you to the hospital, unusual headache, vision change, shortness of breath, chest pain, numbness, tingling, loss of alertness/awareness, loss of function, unusual bleeding or any alarming symptoms. Referrals: Mejia Monteiro MD [Staff Physician] - 1 Week Santos Mcguire MD [Staff Physician] - 2 Weeks Disposition: HOME - Home Medications Comprehensive Discharge Medication List: Ambulatory Orders Apixaban [Eliquis -] 2.5 mg PO BID 05/13/17 Diltiazem HCl [Cartia Xt] 180 mg PO BID 05/13/17 Metoprolol Succinate [Toprol XL -] 100 mg PO BID 05/13/17 Paroxetine HCl 10 mg PO DAILY 02/11/20 Metformin HCl [Glucophage] 500 mg PO BID 02/12/20 ATTENDING PHYSICIAN STATEMENT I saw and evaluated the patient. I reviewed the resident's note and discussed the case with the resident. I agree with the resident's findings and plan as documented. SUBJECTIVE: OBJECTIVE: ASSESSMENT AND PLAN:
--- NOTE | 2020-02-13 17:52 | PN ---
Physical Exam: SUBJECTIVE: Patient seen and examined. No acute events overnight. Pt has no complaints at this time. OBJECTIVE: Vital Signs Period Temp Pulse Resp BP Sys/Lazaro Pulse Ox Last 24 Hr 97.4 F-98.2 F 83-117 - 103-149/59-76 94-94 GENERAL: AAOx1 (to self), not in acute distress HEENT: NCAT, EOMI, moist mucus membranes CARDIAC: Irregular rate and rhythm; +systolic murmur RESPIRATORY: CTA b/l, no wheezes ABDOMEN: Soft, nondistended, nontender to palpation. Normoactive bowel sounds. EXTREMITIES: warm, well-perfused. 1+ pitting edema on LLE SKIN: excoriations seen on sternum. Warm, dry Laboratory Last Values WBC 5.0 K/mm3 (4.0-10.0) 02/13/20 10:25 RBC 4.78 M/mm3 (3.60-5.2) 02/13/20 10:25 Hgb 12.4 GM/dL (10.7-15.3) 02/13/20 10:25 Hct 38.5 % (32.4-45.2) 02/13/20 10:25 MCV 80.6 fl (80-96) 02/13/20 10:25 MCH 25.9 pg (25.7-33.7) 02/13/20 10:25 MCHC 32.2 g/dl (32.0-36.0) 02/13/20 10:25 RDW 22.7 % (11.6-15.6) H 02/13/20 10:25 Plt Count 312 K/MM3 (134-434) 02/13/20 10:25 MPV 6.5 fl (7.5-11.1) L 02/13/20 10:25 Absolute Neuts (auto) 9.6 K/mm3 (1.5-8.0) H 02/10/20 18:28 Neutrophils % 88.1 % (42.8-82.8) H D 02/10/20 18:28 Lymphocytes % 6.4 % (8-40) L D 02/10/20 18:28 Monocytes % 5.4 % (3.8-10.2) 02/10/20 18:28 Eosinophils % 0.0 % (0-4.5) D 02/10/20 18: Basophils % 0.1 % (0-2.0) 02/10/20 18: Nucleated RBC % 0 % (0-0) 02/10/20 18: Anisocytosis 1+ 02/10/20 18:28 Microcytosis 1+ 02/10/20 18: Macrocytosis 1+ 02/10/20 18: PT with INR 19.90 SEC (9.7-13.0) H 02/10/20 18: INR 1.68 (0.83-1.09) H 02/10/20 18: PTT (Actin FS) 42.6 SECONDS (25.2-36.5) H 02/13/20 07:10 VBG pH 7.308 (7.310-7.410) L 02/10/20 18:00 POC VBG pCO2 49.4 mmHg (38-52) 02/10/20 18:00 POC VBG pO2 26.4 mmHg (28-48) L 02/10/20 18:00 VBG HCO3 24.2 mmol/L (23-29) 02/10/20 18:00 VBG O2 Sat (Thanh) 42.8 % (70-80) L 02/10/20 18:00 VBG Base Excess -2.6 mmol/L (-2-2) L 02/10/20 18:00 Sodium 141 mmol/L (136-145) 02/13/20 07:10 Potassium 3.6 mmol/L (3.5-5.1) 02/13/20 07:10 Chloride 108 mmol/L (98-107) H 02/13/20 07:10 Carbon Dioxide 28 mmol/L (21-32) 02/13/20 07:10 Anion Gap 5 MMOL/L (8-16) L 02/13/20 07:10 BUN 14.5 mg/dL (7-18) 02/13/20 07:10 Creatinine 0.6 mg/dL (0.55-1.3) 02/13/20 07:10 Est GFR (CKD-EPI)AfAm 93.66 02/13/20 07:10 Est GFR (CKD-EPI)NonAf 80.81 02/13/20 07:10 POC Glucometer 80 UNITS (80-120) 02/13/20 05:53 Random Glucose 93 mg/dL (74-106) 02/13/20 07:10 Hemoglobin A1c % 6.4 % (4.2-6.3) H 02/12/20 06:35 Lactic Acid 1.4 mmol/L (0.4-2.0) 02/13/20 07:10 Calcium 8.4 mg/dL (8.5-10.1) L 02/13/20 07:10 Phosphorus 2.4 mg/dL (2.5-4.9) L 02/13/20 07:10 Magnesium 1.8 mg/dL (1.8-2.4) 02/13/20 07:10 Total Bilirubin 1.1 mg/dL (0.2-1) H 02/12/20 06:35 AST 7 U/L (15-37) L 02/12/20 06:35 ALT 13 U/L (13-61) 02/12/20 06:35 Alkaline Phosphatase 77 U/L (45-117) 02/12/20 06:35 Troponin I 0.03 ng/ml (0.00-0.05) 02/11/20 04:45 B-Natriuretic Peptide 64014.5 pg/ml (5-450) H 02/10/20 18:28 Total Protein 5.0 g/dl (6.4-8.2) L 02/12/20 06:35 Albumin 1.7 g/dl (3.4-5.0) L 02/12/20 06:35 TSH 2.36 uIU/ml (0.358-3.74) 02/12/20 06:35 Urine Color Dk yellow 02/10/20 18:28 Urine Appearance Turbid 02/10/20 18:28 Urine pH 5.0 (5.0-8.0) D 02/10/20 18:28 Ur Specific [place] 1.017 (1.010-1.035) 02/10/20 18:28 Urine Protein 2+ (NEGATIVE) H 02/10/20 18:28 Urine Glucose (UA) Negative (NEGATIVE) 02/10/20 18:28 Urine Ketones Trace (NEGATIVE) H 02/10/20 18:28 Urine Blood 3+ (NEGATIVE) H 02/10/20 18:28 Urine Nitrite Negative (NEGATIVE) 02/10/20 18:28 Urine Bilirubin 2+ (NEGATIVE) H 02/10/20 18:28 Urine Urobilinogen 1.0 mg/dL (0.2-1.0) 02/10/20 18:28 Ur Leukocyte Esterase 2+ (NEGATIVE) H 02/10/20 18:28 Urine WBC (Auto) 7817 /uL (0-25.8) 02/10/20 18:28 Urine RBC (Auto) 375.8 /uL (0-23.9) 02/10/20 18:28 Urine Casts (Auto) 53 /uL (0-3.1) 02/10/20 18:28 U Pathogenic Cast Auto 6 /lpf (NEGATIVE) 02/10/20 18:28 U Epithel Cells (Auto) >36 /uL (0-25.1) 02/10/20 18:28 Urine Bacteria (Auto) >9,000 /uL (0-1359) 02/10/20 18:28 Urine Yeast (Auto) None (NEGATIVE) 02/10/20 18:28 COVID-19 (ANEESH) Not detected (Not Detected) 02/10/20 15:00 Active Medications Acetaminophen (Tylenol -) 650 mg PO Q6H PRN PRN Reason: PAIN LEVEL 1-5 Amino Acids (Prosource No Carb Liquid Pkt) 30 ml PO BID@0800,1730 [facility] Last Admin: 02/13/20 17:45 Dose: Not Given Documented by: Apixaban (Eliquis -) 2.5 mg PO BID [facility] Diltiazem HCl (Cardizem Injection -) 5 mg IVPUSH Q4H PRN PRN Reason: TACHYCARDIA Diltiazem HCl (Cardizem -) 30 mg PO Q6HPO [facility] Last Admin: 02/13/20 17:45 Dose: 30 mg Documented by: Piperacillin Sod/Tazobactam (Sod 2.25 gm/ Dextrose) 50 mls @ 100 mls/hr IVPB Q8H-IV [facility]; Protocol Last Admin: 02/13/20 17:45 Dose: 100 mls/hr Documented by: Insulin Aspart (Novolog Vial Sliding Scale -) 1 vial SQ TIDAC [facility]; Protocol Last Admin: 02/13/20 11:27 Dose: Not Given Documented by: Metoprolol Tartrate (Lopressor -) 50 mg PO BID [facility] Last Admin: 02/13/20 13:30 Dose: 50 mg Documented by: Multivitamins/Minerals/Vitamin C (Tab-A-Vit -) 1 tab PO DAILY [facility] ASSESSMENT/PLAN: Pt is an 89 year old F with PMH of dementia, Afib (on Eliquis), HTN, HLD, chronic CHF, CAD, DM, prior UTI (E.coli, Kelbsiella) presented to the ED with AMS. Pt is currently admitted for sepsis secondary to UTI vs. PNA Sepsis secondary to acute complicated UTI vs pneumonia -Leukocytosis improved -CXR with possible atelectasis in RUL and possile prominent vascularity/other etiology. New dense reaction in retrocardiac area, suspicious for atelectasis/infiltrate -f/u CT chest -UA 2+ proteins,trace ketones, 3+ blood, 2+ leukocyte esterase, >9000 bacteria with >36 epithelial cells -c/w Zosyn (started 02/09, today is day 4) -Cultures: -Bcx negative thus far, pending final results -Ucx grew yeast like organism -ID consulted HFrEF -Echo showed LVEF 35%, severe hypokinesis of L ventricle. Mild MR, mild-moderate TR, trace TR, large L pleural effusion. -pulmonary consulted. Possible thoracentesis Acute metabolic encephalopathy secondary to UTI, improved -CT head w/o acute pathology -continue to assess mental status Afib with RVR -CHADSVASC score 5 -c/w eliquis 2.5mg BID -c/w diltiazem 30mg q6H and Diltiazem 5mg IV push for heart rate greater than 120 bpm hold if systolic BP<90 mmHg. -c/w telemetry HTN, HLD, chronic -Continue Diltiazem -Hold home Metoprolol DM, chronic -ISS + BGM -hold home metformin FEN -No standing fluids -replete lytes with goal of K+ 4, and Mg++ 2, respectively. -Dysphagia chopped with thin liquids Prophylaxis -Eliquis Disposition -continue to monitor on tele Visit type - Emergency Visit Emergency Visit: Yes ED Registration Date: 02/10/20 Care time: The patient presented to the Emergency Department on the above date and was hospitalized for further evaluation of their emergent condition. - New Patient This patient is new to me today: No - Critical Care Critical Care patient: No - Medication Review Med list reviewed for High Risk Meds patients 65 and older: Yes ATTENDING PHYSICIAN STATEMENT I saw and evaluated the patient. I reviewed the resident's note and discussed the case with the resident. I agree with the resident's findings and plan as documented. SUBJECTIVE: OBJECTIVE: ASSESSMENT AND PLAN:
--- NOTE | 2020-02-13 17:59 | PN ---
Teaching Attending Note Name of Resident: Yoko Evans ATTENDING PHYSICIAN STATEMENT I saw and evaluated the patient. I reviewed the resident's note and discussed the case with the resident. I agree with the resident's findings and plan as documented. SUBJECTIVE: Patient iscomfortable with NAD OBJECTIVE: Vital Signs Temperature 97.4 F L 02/13/20 15:03 Pulse Rate 83 02/13/20 15:03 Respiratory Rate 20 02/13/20 15:03 Blood Pressure 118/59 L 02/13/20 15:03 O2 Sat by Pulse Oximetry (%) 94 L 02/13/20 10:00 PE: per resident's note CBCD WBC 5.0 K/mm3 (4.0-10.0) 02/13/20 10:25 RBC 4.78 M/mm3 (3.60-5.2) 02/13/20 10:25 Hgb 12.4 GM/dL (10.7-15.3) 02/13/20 10:25 Hct 38.5 % (32.4-45.2) 02/13/20 10:25 MCV 80.6 fl (80-96) 02/13/20 10:25 MCHC 32.2 g/dl (32.0-36.0) 02/13/20 10:25 RDW 22.7 % (11.6-15.6) H 02/13/20 10:25 Plt Count 312 K/MM3 (134-434) 02/13/20 10:25 MPV 6.5 fl (7.5-11.1) L 02/13/20 10:25 CMP Sodium 141 mmol/L (136-145) 02/13/20 07:10 Potassium 3.6 mmol/L (3.5-5.1) 02/13/20 07:10 Chloride 108 mmol/L (98-107) H 02/13/20 07:10 Carbon Dioxide 28 mmol/L (21-32) 02/13/20 07:10 Anion Gap 5 MMOL/L (8-16) L 02/13/20 07:10 BUN 14.5 mg/dL (7-18) 02/13/20 07:10 Creatinine 0.6 mg/dL (0.55-1.3) 02/13/20 07:10 Random Glucose 93 mg/dL (74-106) 02/13/20 07:10 Calcium 8.4 mg/dL (8.5-10.1) L 02/13/20 07:10 Total Bilirubin 1.1 mg/dL (0.2-1) H 02/12/20 06:35 AST 7 U/L (15-37) L 02/12/20 06:35 ALT 13 U/L (13-61) 02/12/20 06:35 Alkaline Phosphatase 77 U/L (45-117) 02/12/20 06:35 Total Protein 5.0 g/dl (6.4-8.2) L 02/12/20 06:35 Albumin 1.7 g/dl (3.4-5.0) L 02/12/20 06:35 CARDIAC ENZYMES Troponin I 0.03 ng/ml (0.00-0.05) 02/11/20 04:45 Current Medications Generic Name Dose Route Start Last Admin Trade Name Freq PRN Reason Stop Dose Admin Acetaminophen 650 mg 02/13/20 15:45 Tylenol - PO Q6H PRN PAIN LEVEL 1-5 Amino Acids 30 ml 02/12/20 17:30 02/13/20 17:45 Prosource No Carb Liquid Pkt PO Not Given BID@0800,1730 [facility] Apixaban 2.5 mg 02/13/20 22:00 Eliquis - PO BID KEVAN Diltiazem HCl 5 mg 02/11/20 12:09 Cardizem Injection - IVPUSH Q4H PRN TACHYCARDIA Diltiazem HCl 30 mg 02/12/20 18:00 02/13/20 17:45 Cardizem - PO 30 mg Q6HPO KEVAN Administration Piperacillin Sod/Tazobactam 50 mls @ 100 mls/hr 02/11/20 18:00 02/13/20 17:45 Sod 2.25 gm/ Dextrose IVPB 100 mls/hr Q8H-IV KEVAN Administration Protocol Insulin Aspart 1 vial 02/11/20 19:15 02/13/20 11:27 Novolog Vial Sliding Scale - SQ Not Given TIDAC [facility] Protocol Metoprolol Tartrate 50 mg 02/13/20 12:30 02/13/20 13:30 Lopressor - PO 50 mg BID KEVAN Administration Multivitamins/Minerals/Vitamin C 1 tab 02/13/20 10:00 Tab-A-Vit - PO DAILY [facility] Home Medications Medication Instructions Recorded Apixaban [Eliquis -] 2.5 mg PO BID 05/13/17 Diltiazem HCl [Cartia Xt] 180 mg PO BID 05/13/17 Metoprolol Succinate [Toprol XL -] 100 mg PO BID 05/13/17 Paroxetine HCl 10 mg PO DAILY 02/11/20 Metformin HCl [Glucophage] 500 mg PO BID 02/12/20 Microbiology 02/10/20 18:28 Urine - Urine - Catheterized Urine Culture - Final Yeast Like Organism Normal Urogenital Maddi 02/10/20 17:40 Blood - Peripheral Venous Blood Culture - Preliminary NO GROWTH OBTAINED AFTER 48 HOURS, INCUBATION TO CONTINUE FOR 3 DAYS. 02/10/20 18:28 Blood - Peripheral Venous Blood Culture - Preliminary NO GROWTH OBTAINED AFTER 48 HOURS, INCUBATION TO CONTINUE FOR [address] of the head: no acute pathology CXR: right hilum fullness , fullness of the superior mediastinum ;atelectasis vs RUL pneumonia, some pleural reaction at both bases along with a new dense retrocardiac area, compatible with atelectasis or infiltrate. ECHO: septal motion is consistent with conduction abnormality, moderate to severe global hypokinesis of left ventricle, left ventriclar systolic function is moderate to severely reduced. EJF=35% mild MR, mild to moderate TR, right ventricular systolic pressure is 31mmhg, trace AR, large left pleural effusion. ASSESSMENT AND PLAN: Patient is an 89 year old female with history of dementia, Afib (on Eliquis), hypertension, hyperlipidemia, coronary artery disease, diabetes mellitus, prior UTI (E.coli, Kelbsiella) presents to the ED with acute mental status change . # Sepsis secondary to acute complicated UTI s/p IV antibiotic, will dc abx since cx is negative #Acute metabolic encephalopathy due to sepsis due to UTI, follow the cx #Afib with rate control now with CHADSVASC score 5: s/p heparin, now that is able to swallow will continue with eliquis now. # Hx of HTN/HLD on Diltiazem, continue , continue home Metoprolol 50mg bid . #Hx of T2DM : SS with coverge, A1c. DVT Px; Eliquis as per Joycelyn spencer: Suggest-Trial Dysphagia ground and thin liquid ensure, magic cup, ensure pudding Pt reportedly likes eggs, cold water, coffee, tuna salad, ice cream, sherbet. Her son Kb March ([phone]) Ct of the chest pending read. since patient has large pleural effusion , will reconsult pulmonary if needed.
[2020-02-13] MEDS: APIXABAN 2.5 MG TABLET PO SCH (22:32)
[2020-02-14] MEDS: dilTIAZem HCL 30 MG TABLET PO SCH ×4 (00:41→17:30)
[2020-02-14] MEDS: INSULIN SLIDING SCALE (NOVOLOG) 1 VIAL SQ SCH ×3 (06:45→17:28)
[2020-02-14] MEDS: AMINO ACIDS/PROTEIN HYDROLYS 30 ML LIQUID.PKT PO SCH ×2 (09:56→17:29)
[2020-02-14] MEDS: APIXABAN 2.5 MG TABLET PO SCH (09:56)
[2020-02-14] MEDS: METOPROLOL TARTRATE 50 MG TABLET (FP) PO SCH (09:56)
--- NOTE | 2020-02-14 10:16 | PN ---
Progress Note, REGISTERED DENTAL ASSISTANT RDA - Note Progress Note: Selected Entries 02/12/20 02/12/20 02/12/20 00:57 06:49 09:00 Breakfast Diet Tolerated Temperature Pulse Rate Respiratory 20 20 18 Rate Respiratory Non-Labored Effort Blood Pressure O2 Sat by Pulse 96 Oximetry (%) Oxygen Delivery Nasal Cannula Method Oxygen Flow 2 Rate 02/12/20 02/12/20 02/12/20 14:00 18:00 21:00 Breakfast Diet Tolerated Temperature Pulse Rate Respiratory 20 20 Rate Respiratory Effort Blood Pressure O2 Sat by Pulse 94 L Oximetry (%) Oxygen Delivery Nasal Cannula Method Oxygen Flow 2 Rate 02/12/20 02/13/20 02/13/20 22:00 01:49 06:00 Breakfast Diet Tolerated Temperature 97.7 F Pulse Rate 115 H 102 H Respiratory 20 20 20 Rate Respiratory Effort Blood Pressure 138/67 103/75 O2 Sat by Pulse Oximetry (%) Oxygen Delivery Method Oxygen Flow Rate 02/13/20 09:45 Breakfast 50% Diet Tolerated Well Temperature Pulse Rate Respiratory Rate Respiratory Effort Blood Pressure O2 Sat by Pulse Oximetry (%) Oxygen Delivery Method Oxygen Flow Rate Laboratory Tests 02/10/20 02/10/20 02/12/20 15:00 18:28 06:35 WBC 10.9 H 6.7 COVID-19 (AENESH) Not detected Selected Entries 02/13/20 02/13/20 02/13/20 09:45 10:00 15:03 Breakfast 50% Lunch 50% Supper Temperature Pulse Rate Respiratory Rate Respiratory Effort Blood Pressure O2 Sat by Pulse 94 L Oximetry (%) Oxygen Delivery Nasal Cannula Method 02/13/20 02/13/20 02/13/20 18:00 20:10 22:00 Breakfast Lunch Supper 25% Temperature Pulse Rate Respiratory Rate Respiratory Effort Blood Pressure O2 Sat by Pulse 100 100 Oximetry (%) Oxygen Delivery Nasal Cannula Method 02/14/20 02/14/20 02/14/20 01:11 05:00 09:00 Breakfast Lunch Supper Temperature 97.8 F 97.5 F L Pulse Rate 84 108 H Respiratory 20 20 20 Rate Respiratory Non-Labored Effort Blood Pressure 119/73 113/77 O2 Sat by Pulse 96 Oximetry (%) Oxygen Delivery Method Laboratory Tests 02/13/20 10:25 WBC 5.0 Dysphagia ground and thin liquid Afebrile. WBC WNL. Not congested. Nursing reports pt doing well with diet with good tolerance. CT chest noted. Continue Dys ground, thin liquids. Supplements b/n meals. If dentures fit well and are tolerated, diet upgrade may be indicated at home.
--- NOTE | 2020-02-14 10:39 | PN ---
Progress Note, Physician History of Present Illness: pulmonary awake,comfortable,-sob,chest ct bilateral pleural effusions - Current Medication List Current Medications: Active Medications Acetaminophen (Tylenol -) 650 mg PO Q6H PRN PRN Reason: PAIN LEVEL 1-5 Amino Acids (Prosource No Carb Liquid Pkt) 30 ml PO BID@0800,1730 [facility] Last Admin: 02/14/20 09:56 Dose: 30 ml Documented by: Apixaban (Eliquis -) 2.5 mg PO BID [facility] Last Admin: 02/14/20 09:56 Dose: 2.5 mg Documented by: Diltiazem HCl (Cardizem Injection -) 5 mg IVPUSH Q4H PRN PRN Reason: TACHYCARDIA Diltiazem HCl (Cardizem -) 30 mg PO Q6HPO [facility] Last Admin: 02/14/20 06:46 Dose: 30 mg Documented by: Furosemide (Lasix -) 20 mg PO DAILY [facility] Insulin Aspart (Novolog Vial Sliding Scale -) 1 vial SQ TIDAC [facility]; Protocol Last Admin: 02/14/20 06:45 Dose: Not Given Documented by: Metoprolol Tartrate (Lopressor -) 50 mg PO BID [facility] Last Admin: 02/14/20 09:56 Dose: 50 mg Documented by: Multivitamins/Minerals/Vitamin C (Tab-A-Vit -) 1 tab PO DAILY [facility] - Objective Vital Signs: Vital Signs Temperature 97.5 F L 02/14/20 05:00 Pulse Rate 108 H 02/14/20 05:00 Respiratory Rate 20 02/14/20 09:00 Blood Pressure 113/77 02/14/20 05:00 O2 Sat by Pulse Oximetry (%) 96 02/14/20 05:00 Constitutional: Yes: Calm, Thin Eyes: Yes: WNL HENT: Yes: WNL Neck: Yes: WNL Cardiovascular: Yes: Pulse Irregular, S1, S2 Respiratory: Yes: Diminished Gastrointestinal: Yes: Normal Bowel Sounds, Soft Extremities: Yes: WNL Edema: No Labs: CBC, BMP 02/13/20 10:25 02/13/20 07:10 INR, PTT INR 1.68 (0.83-1.09) H 02/10/20 18:28 - ....Imaging Cat Scan: Report Reviewed, Image Reviewed Problem List - Problems (1) CHF (congestive heart failure) Code(s): I50.9 - HEART FAILURE, UNSPECIFIED (2) CAD (coronary artery disease) Code(s): I25.10 - ATHSCL HEART DISEASE OF [place] CORONARY ARTERY W/O ANG PCTRS (3) HTN (hypertension) Code(s): I10 - ESSENTIAL (PRIMARY) HYPERTENSION (4) Acute metabolic encephalopathy Code(s): G93.41 - METABOLIC ENCEPHALOPATHY (5) Paroxysmal atrial fibrillation with RVR Code(s): I48.0 - PAROXYSMAL ATRIAL FIBRILLATION (6) Pleural effusion Code(s): J90 - PLEURAL EFFUSION, NOT ELSEWHERE CLASSIFIED Assessment/Plan ASSESSMENT/PLAN: AFib with RVR improved CHF with bilateral pleural effusions Dementia DM History of frequent utis ABX coverage per ID Supplemental O2 as needed Lasix Aspiration precautions Continue AC f/u chest x-rays DR JAMES
[2020-02-14] MEDS ORDERED: FUROSEMIDE 20 MG TABLET (FP) PO SCH (11:00)
--- NOTE | 2020-02-14 11:51 | PN ---
Progress Note (short form) - Note Progress Note: Chief Complaint: altered mental status s: no chest pain, palps, dizziness, dyspnea Current Medications Generic Name Dose Route Start Last Admin Trade Name Tra PRN Reason Stop Dose Admin Acetaminophen 650 mg 02/13/20 15:45 Tylenol - PO Q6H PRN PAIN LEVEL 1-5 Amino Acids 30 ml 02/12/20 17:30 02/14/20 09:56 Prosource No Carb Liquid Pkt PO 30 ml BID@0800,1730 [facility] Administration Apixaban 2.5 mg 02/13/20 22:00 02/14/20 09:56 Eliquis - PO 2.5 mg BID [facility] Administration Diltiazem HCl 5 mg 02/11/20 12:09 Cardizem Injection - IVPUSH Q4H PRN TACHYCARDIA Diltiazem HCl 30 mg 02/12/20 18:00 02/14/20 06:46 Cardizem - PO 30 mg Q6HPO [facility] Administration Furosemide 20 mg 02/14/20 11:00 02/14/20 11:36 Lasix - PO 20 mg DAILY [facility] Administration Insulin Aspart 1 vial 02/11/20 19:15 02/14/20 10:42 Novolog Vial Sliding Scale - SQ Not Given TIDAC [facility] Protocol Metoprolol Tartrate 50 mg 02/13/20 12:30 02/14/20 09:56 Lopressor - PO 50 mg BID [facility] Administration Multivitamins/Minerals/Vitamin C 1 tab 02/13/20 10:00 Tab-A-Vit - PO DAILY [facility] Vital Signs Period Temp Pulse Resp BP Sys/Lazaro Pulse Ox Last 24 Hr 97.4 F-98.2 F 83-110 20-20 110-119/58-77 96-100 Constitutional: Yes: Well Nourished, No Distress Eyes: No: Sclera Icterus Respiratory: Yes: CTA Bilaterally. No: Accessory Muscle Use, Rales Gastrointestinal: Yes: Normal Bowel Sounds. No: Distention, Hepatomegaly, Palpable Mass, Tenderness Cardiovascular: Yes: Pulse Irregular JVD: No Carotid Bruit: No PMI: Non-Displaced Heart Sounds: Yes: S1, S2. No: Gallop Murmur: No: Systolic Murmur, Diastolic Murmur Extremities: No: Cold, Cyanosis Edema: No Peripheral Pulses: 2+ Left Carotid, 2+ Right Carotid, 2+ Left Doralis Pedis, 2+ Right Dorsalis Pedis Integumentary: No: Jaundice diaphoresis Neurological: awake, alert Psychiatric: No: Agitated CBC, BMP 02/13/20 10:25 02/13/20 07:10 ekg: afib, rvr, rbbb, lat st depressions, similar to priors CXR: no chf tele: afib, rate generally controlled Echo here 02/2016: nl lv size, mod dec lvef, global hk, nl rv, mild-mod mr, mod tr, rvsp 50-60,trace-mild ar, mild pr Echo 07/22: Nl LV/RV. No significant valvular abnormalities. echo 02/2020 septal motion c/w conduction abnormality, mod to severe global hypokinesis of LV, mod to severely reduced LV function, EF 35%, mild MR, mild to mod TR, RVSP 31 mmHg, tr AR, large L pleural effusion Assessment/Plan paroxysmal Afib, rapid HR: -at home was on dilt 180 bid, toprol 100 bid, for rate control. Here now with rvr, possibly from sepsis. After iv dig and dilt gtt hr has improved and bp improved as well. -hr controlled on current bb, ccb. -chadsvasc is 5 (no cva/tia hx) - resumed home eliquis 2.5 mg BID chronic syst chf: -Nl EF 07/2015 --> 02/2016 (EF mod depressed). 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 sepsis, UTI, toxic metabolic encephalopathy: -improved cardiac [place] stable for dc
[2020-02-14 13:16] VITALS: TEMP 98
--- NOTE | 2020-02-14 14:00 | PN ---
Progress Note, Physician - Current Medication List Current Medications: Active Medications Acetaminophen (Tylenol -) 650 mg PO Q6H PRN PRN Reason: PAIN LEVEL 1-5 Amino Acids (Prosource No Carb Liquid Pkt) 30 ml PO BID@0800,1730 [facility] Last Admin: 02/14/20 09:56 Dose: 30 ml Documented by: Apixaban (Eliquis -) 2.5 mg PO BID [facility] Last Admin: 02/14/20 09:56 Dose: 2.5 mg Documented by: Diltiazem HCl (Cardizem Injection -) 5 mg IVPUSH Q4H PRN PRN Reason: TACHYCARDIA Diltiazem HCl (Cardizem -) 30 mg PO Q6HPO [facility] Last Admin: 02/14/20 13:51 Dose: 30 mg Documented by: Furosemide (Lasix -) 20 mg PO DAILY [facility] Last Admin: 02/14/20 11:36 Dose: 20 mg Documented by: Insulin Aspart (Novolog Vial Sliding Scale -) 1 vial SQ TIDAC [facility]; Protocol Last Admin: 02/14/20 10:42 Dose: Not Given Documented by: Metoprolol Tartrate (Lopressor -) 50 mg PO BID [facility] Last Admin: 02/14/20 09:56 Dose: 50 mg Documented by: Multivitamins/Minerals/Vitamin C (Tab-A-Vit -) 1 tab PO DAILY [facility] - Objective Vital Signs: Vital Signs Temperature 98 F 02/14/20 09:00 Pulse Rate 92 H 02/14/20 09:00 Respiratory Rate 18 02/14/20 09:00 Blood Pressure 120/58 L 02/14/20 09:00 O2 Sat by Pulse Oximetry (%) 96 02/14/20 09:00 Labs: CBC, BMP 02/13/20 10:25 02/13/20 07:10 INR, PTT INR 1.68 (0.83-1.09) H 02/10/20 18:28
--- NOTE | 2020-02-14 14:12 | DS ---
Physical Exam: SUBJECTIVE: Patient seen and examined. Pt has no complaints at this time. No acute events overnight. Pt remained in Afib on tele overnight. OBJECTIVE: Vital Signs Period Temp Pulse Resp BP Sys/Lazaro Pulse Ox Last 24 Hr 97.4 F-98 F 83-108 18-20 110-120/58-77 96-100 PHYSICAL EXAM GENERAL: Somnolent, but arousable. Not in acute distress HEENT: NCAT, EOMI, moist mucus membranes CARDIAC: Irregular rate and rhythm; +systolic murmur RESPIRATORY: CTA b/l, no wheezes ABDOMEN: Soft, nondistended, nontender to palpation. Normoactive bowel sounds. EXTREMITIES: warm, well-perfused. 1+ pitting edema b/l LE SKIN: excoriations seen on sternum. Warm, dry LABS CBC, BMP 02/13/20 10:25 02/13/20 07:10 HOSPITAL COURSE: Pt is an 89 year old F with PMH of dementia, Afib (on Eliquis), HTN, HLD, chronic HFrEF (35%), CAD, DM, prior UTI (E.coli, Kelbsiella) presented to the ED with AMS. Pt is was admitted for acute metabolic encephalopathy due to sepsis s econdary to UTI vs. PNA. On admission, pt was not reliably able to take PO medication, and thus was put on heparin drip for prophylaxis. Pt had leukocytosis and CXR with atelectasis/infiltrate that was suspicious for PNA. UA was positive for 2+ proteins,trace ketones, 3+ blood, 2+ leukocyte esterase, >9000 bacteria with >[address] head was negative for acute pathology. Pt was empirically treated with Zosyn and one dose of vancomycin. Leukocytosis resolved. Mental status improved. Pt was able to swallow medication and food reliably. Blood culture was negative and urine culture grew yeast like organisms. Echo showed large pleural effusion. Subsequent CT chest showed b/l infiltrate of the lungs, likely due to HFrEF. Pt placed on 20mg lasix along with her usual home medication. Pt is hemodynamically stable and medically optimized for discharge to her home. Date of Admission:02/10/20 Date of Discharge: 02/14/20 Minutes to complete discharge: 36 Discharge Summary Problems reviewed: Yes Reason For Visit: ALTERED MENTAL STATUS Current Active Problems CAD (coronary artery disease) (Chronic) CHF (congestive heart failure) (Chronic) Diabetes (Chronic) HTN (hypertension) (Chronic) Pleural effusion (Chronic) Condition: Improved - Instructions Diet, Activity, Other Instructions: Your Hospitalization: You came to the hospital because you were experiencing confusion. You were admitted to the hospital for care of these symptoms. We did imaging of your chest and your head. You were found to have some changes in your lungs that may suggest fluid. There were no concerning findings of your head. We also tested your urine and you were found to have a urinary tract infection. You were treated with antibiotics with improvement of your symptoms. You are now stable and may return home. Additional image findings: There were some incidental findings when we imaged your chest. You have a 5 mm lung nodule in your right lung. You may follow up with your primary care doctor regarding further management. Medications: Please continue to take your home medications as prescribed: -Paroxetine 10mg by mouth daily -Metoprolol succinate 50mg by mouth twice a day -Metformin 500mg by mouth twice a day -Diltiazem 180mg by mouth once per day (Direction changed to Once a day) -Apixaban (Eliquis) 2.5mg by mouth twice a day You have *NEW* medication. -Furosemide 20mg my mouth daily Diet: Dysphagia ground and thin liquid, dysphagia chopped diabetic diet. Follow up: Please make an appointment to see a primary care provider, Dr. Mcguire 2 weeks from today. You may discuss your hospitalization with him. Please make an appointment to see your airplane rigger, Dr. Monteiro, 1 week from today. You may follow up with him regarding your atrial fibrillation and other heart conditions. Please make an appointment to see your airplane rigger, Dr. Robison, 1 week from today. Please use this opportunity to discuss the finding of pleural effusion. Additional instructions: -You are being discharged home. -Please call 911 or come directly to the emergency department if you experience recurrence of the symptoms that brought you to the hospital, unusual headache, vision change, shortness of breath, chest pain, numbness, tingling, loss of alertness/awareness, loss of function, unusual bleeding or any alarming symptoms. Referrals: Constantin Robison MD [Staff Physician] - Mejia Monteiro MD [Staff Physician] - 1 Week Santos Mcguire MD [Staff Physician] - 2 Weeks Disposition: HOME - Home Medications Comprehensive Discharge Medication List: Ambulatory Orders Apixaban [Eliquis -] 2.5 mg PO BID 05/13/17 Diltiazem HCl [Cartia Xt] 180 mg PO BID 05/13/17 Paroxetine HCl 10 mg PO DAILY 02/11/20 Metformin HCl [Glucophage] 500 mg PO BID 02/12/20 Furosemide [Lasix -] 20 mg PO DAILY #30 tablet 02/14/20 Metoprolol Tartrate [Lopressor -] 50 mg PO BID tablet 02/14/20 This patient is new to me today: No Emergency Visit: Yes ED Registration Date: 02/10/20 Care time: The patient presented to the Emergency Department on the above date and was hospitalized for further evaluation of their emergent condition. Critical Care patient: No - Discharge Referral Referred to [facility] Med P.C.: No ATTENDING PHYSICIAN STATEMENT I saw and evaluated the patient. I reviewed the resident's note and discussed the case with the resident. I agree with the resident's findings and plan as documented. SUBJECTIVE: OBJECTIVE: ASSESSMENT AND PLAN:
--- NOTE | 2020-02-14 14:44 | PN ---
Teaching Attending Note Name of Resident: Yoko Evans ATTENDING PHYSICIAN STATEMENT I saw and evaluated the patient. I reviewed the resident's note and discussed the case with the resident. I agree with the resident's findings and plan as documented. SUBJECTIVE: Patient is comfortably lying in bed with NAD. OBJECTIVE: Vital Signs Temperature 98 F 02/14/20 09:00 Pulse Rate 92 H 02/14/20 09:00 Respiratory Rate 18 02/14/20 09:00 Blood Pressure 120/58 L 02/14/20 09:00 O2 Sat by Pulse Oximetry (%) 96 02/14/20 09:00 PE;per resident's note CBCD WBC 5.0 K/mm3 (4.0-10.0) 02/13/20 10:25 RBC 4.78 M/mm3 (3.60-5.2) 02/13/20 10:25 Hgb 12.4 GM/dL (10.7-15.3) 02/13/20 10:25 Hct 38.5 % (32.4-45.2) 02/13/20 10:25 MCV 80.6 fl (80-96) 02/13/20 10:25 MCHC 32.2 g/dl (32.0-36.0) 02/13/20 10:25 RDW 22.7 % (11.6-15.6) H 02/13/20 10:25 Plt Count 312 K/MM3 (134-434) 02/13/20 10:25 MPV 6.5 fl (7.5-11.1) L 02/13/20 10:25 CMP Sodium 141 mmol/L (136-145) 02/13/20 07:10 Potassium 3.6 mmol/L (3.5-5.1) 02/13/20 07:10 Chloride 108 mmol/L (98-107) H 02/13/20 07:10 Carbon Dioxide 28 mmol/L (21-32) 02/13/20 07:10 Anion Gap 5 MMOL/L (8-16) L 02/13/20 07:10 BUN 14.5 mg/dL (7-18) 02/13/20 07:10 Creatinine 0.6 mg/dL (0.55-1.3) 02/13/20 07:10 Random Glucose 93 mg/dL (74-106) 02/13/20 07:10 Calcium 8.4 mg/dL (8.5-10.1) L 02/13/20 07:10 Total Bilirubin 1.1 mg/dL (0.2-1) H 02/12/20 06:35 AST 7 U/L (15-37) L 02/12/20 06:35 ALT 13 U/L (13-61) 02/12/20 06:35 Alkaline Phosphatase 77 U/L (45-117) 02/12/20 06:35 Total Protein 5.0 g/dl (6.4-8.2) L 02/12/20 06:35 Albumin 1.7 g/dl (3.4-5.0) L 02/12/20 06:35 CARDIAC ENZYMES Troponin I 0.03 ng/ml (0.00-0.05) 02/11/20 04:45 Current Medications Generic Name Dose Route Start Last Admin Trade Name Freq PRN Reason Stop Dose Admin Acetaminophen 650 mg 02/13/20 15:45 Tylenol - PO Q6H PRN PAIN LEVEL 1-5 Amino Acids 30 ml 02/12/20 17:30 02/14/20 09:56 Prosource No Carb Liquid Pkt PO 30 ml BID@0800,1730 [facility] Administration Apixaban 2.5 mg 02/13/20 22:00 02/14/20 09:56 Eliquis - PO 2.5 mg BID [facility] Administration Diltiazem HCl 5 mg 02/11/20 12:09 Cardizem Injection - IVPUSH Q4H PRN TACHYCARDIA Diltiazem HCl 30 mg 02/12/20 18:00 02/14/20 13:51 Cardizem - PO 30 mg Q6HPO [facility] Administration Furosemide 20 mg 02/14/20 11:00 02/14/20 11:36 Lasix - PO 20 mg DAILY [facility] Administration Insulin Aspart 1 vial 02/11/20 19:15 02/14/20 10:42 Novolog Vial Sliding Scale - SQ [facility] Metoprolol Tartrate 50 mg 02/13/20 12:30 02/14/20 09:56 Lopressor - PO 50 mg BID [facility] Administration Multivitamins/Minerals/Vitamin C 1 tab 02/13/20 10:00 Tab-A-Vit - PO DAILY [facility] Home Medications Medication Instructions Recorded Apixaban [Eliquis -] 2.5 mg PO BID 05/13/17 Paroxetine HCl 10 mg PO DAILY 02/11/20 Metformin HCl [Glucophage] 500 mg PO BID 02/12/20 Diltiazem HCl [Diltiazem 24Hr Cd] 180 mg PO DAILY #30 cap.er.24h 02/14/20 Furosemide [Lasix -] 20 mg PO DAILY #30 tablet 02/14/20 Metoprolol Tartrate [Lopressor -] 50 mg PO BID tablet 02/14/20 Microbiology 02/10/20 17:40 Blood - Peripheral Venous Blood Culture - Preliminary NO GROWTH OBTAINED AFTER 72 HOURS, INCUBATION TO CONTINUE FOR 2 DAYS. 02/10/20 18:28 Blood - Peripheral Venous Blood Culture - Preliminary NO GROWTH OBTAINED AFTER 72 HOURS, INCUBATION TO CONTINUE FOR 2 DAYS. 02/10/20 18:28 Urine - Urine - Catheterized Urine Culture - Final Yeast Like Organism Normal Urogenital Maddi Ct of the head: no acute pathology CXR: right hilum fullness , fullness of the superior mediastinum ;atelectasis vs RUL pneumonia, some pleural reaction at both bases along with a new dense retrocardiac area, compatible with atelectasis or infiltrate. ECHO: septal motion is consistent with conduction abnormality, moderate to severe global hypokinesis of left ventricle, left ventriclar systolic function is moderate to severely reduced. EJF=35% mild MR, mild to moderate TR, right ventricular systolic pressure is 31mmhg, trace AR, large left pleural effusion. CT Of the chest : bl moderate effusion ASSESSMENT AND PLAN: Patient is an 89 year old female with history of dementia, Afib (on Eliquis), hypertension, hyperlipidemia, coronary artery disease, diabetes mellitus, prior UTI (E.coli, Kelbsiella) presents to the ED with acute mental status change . #Moderate pleural effusion BL: discussed with Dr Shoemaker and Dr Robison , can dc the patient on oral lasix 20mg daily # Sepsis secondary to acute complicated UTI s/p IV antibiotic, will dc abx since cx is negative #Acute metabolic encephalopathy due to sepsis due to UTI, no growth on the cx #Afib with rate control now with CHADSVASC score 5: s/p heparin, now that is able to swallow will continue with eliquis now. # Hx of HTN/HLD on Diltiazem, continue , continue home Metoprolol and continue with cardizem 180mg once daily #Hx of T2DM : continue with metformin DVT Px; Eliquis as per Joycelyn spencer: Suggest-Trial Dysphagia ground and thin liquid ensure, magic cup, ensure pudding Pt reportedly likes eggs, cold water, coffee, tuna salad, ice cream, sherbet. Her son Kb March ([phone])
[2020-02-14 15:46] VITALS: BP 108/77; PULSE 87
[2020-02-14] MEDS ORDERED: MULTIVITAMINS (DAILY MVI) TABLET (FP) PO SCH (17:15)
== END 2020-02-14 18:13 | disposition home or self-care (01) | DRG 871 ==
LOC: JER 16:44 → JERBED 17:45 → UNDOADMIN 22:24 → JERBED 22:24 → J4W 02-11 16:41
PROVIDERS: ADMIT Internal Medicine Pulmonary Disease; ATTEND Internal Medicine
DX: A41.9 Sepsis, unspecified organism (principal); G93.41 Metabolic encephalopathy; G92 Toxic encephalopathy; N39.0 Urinary tract infection, site not specified; I50.22 Chronic systolic (congestive) heart failure; I42.9 Cardiomyopathy, unspecified; J98.11 Atelectasis; I48.0 Paroxysmal atrial fibrillation; F03.90 Unspecified dementia, unspecified severity, without behavioral disturbance, psychotic disturbance, mood disturbance, and anxiety; I11.0 Hypertensive heart disease with heart failure; E78.5 Hyperlipidemia, unspecified; I25.10 Atherosclerotic heart disease of native coronary artery without angina pectoris; E11.9 Type 2 diabetes mellitus without complications; F32.9 Major depressive disorder, single episode, unspecified; D72.829 Elevated white blood cell count, unspecified; R41.82 Altered mental status, unspecified
CPT/HCPCS: 36415; 70450-TC; 71045-TC-FY; 71250-TC; 80048; 80053; 81003; 82803; 82962; 83036; 83605; 83735; 83880; 84100; 84443; 84484; 85025; 85027; 85610; 85730; 87040; 87077; 87086; 93005; 93010; 93306-TC; 97116-GP; 97161-GP; 99291; J1644; Q2036; U0003